=== PATIENT | male | born 1960 | race Caucasian/White ===

== ENCOUNTER 2019-12-04 15:48 | Emergency (ER) | payer OTHER, SELFPAY ==
--- NOTE | ~2019-12-04 | CT_ITS ---
EXAMINATION: CT brain wo con DATE: 12/04/2019 16:08 INDICATION: Altered mental state. Found unresponsive. TECHNIQUE: Computed tomography (CT) of the head was performed without intravenous contrast. The mA wa s adjusted according to patient size. Iterative reconstruction technique was employed. Exam dose: 60 5.33 mGy-cm total exam DLP. COMPARISON: None FINDINGS: Chronic lacunar infarcts are noted at the posterior limb of the right internal capsule appr oximately as well as both caudate nuclei. There is an old focal infarct high over the right frontal p arietal convexity. Another focal infarct is noted in the right parietal-occipital area. No intracranial mass lesion or hemorrhage, midline shift or mass effect is detected. No subdural or epidural hematoma. No fracture or bone destruction of the cranial vault. Included paranasal sinuses are unremarkable. Th e mastoid air cells are normally developed and aerated. IMPRESSION: Old right cerebral infarcts and bilateral chronic basal ganglia lacunar infarcts, printed forms proofreader ior limb right internal capsule chronic lacunar infarct Reviewed, dictated and finalized at [facility] Reviewed, dictated and finalized at [facility]. IMPRESSION: Old right cerebral infarcts and bilateral chronic basal ganglia la cunar infarcts, posterior limb right internal capsule chronic lacunar infarct
--- NOTE | ~2019-12-04 | CT_ITS ---
EXAMINATION: CTA chest abdomen pelvis DATE: 12/04/2019 16:41 INDICATION: Patient found unresponsive TECHNIQUE: Computed tomography (CT) of the chest, abdomen, and pelvis was performed without and subse quently with 100 cc Omnipaque 350 intravenous contrast. Automated exposure control and iterative bairon nstruction technique were employed. Exam dose: 1215.54 mGy-cm total exam DLP. COMPARISON: None FINDINGS: CHEST CT: Mild emphysematous changes are noted in the lungs. Normal size and homogeneous enhancement of the thyroid gland. No thoracic aortic aneurysm or dissecti on. Heart size is enlarged. No hilar or mediastinal mass lesion or lymphadenopathy. No pericardial or pleural effusion. No pulmonary infiltrate or consolidation or pulmonary mass lesion. ABDOMEN/PELVIS CT: The liver, gallbladder, bile ducts, spleen, pancreas, pancreatic duct, and adrenal glands and kidneys are unremarkable except for mild to moderate scarring in the lower pole of the left kidney, likely d ue to chronic pyelonephritis. Normal caliber of the abdominal aorta. Endovascular stent is present wi thin the distal abdominal aorta, extending into the common iliac arteries bilaterally. No intraperitoneal or retroperitoneal or pelvic mass lesion or adenopathy or ascites. There is a Hooker catheter within the evacuated urinary bladder. Prostate enlargement. There is a prominent amount of fecal material within the rectum and sigmoid colon. Minimal colon dive rticulosis. No CT evidence of diverticulitis. No bowel obstruction, bowel wall thickening, pneumatosi s or intraperitoneal free air. Occasional sclerotic lesions including right femoral neck, femoral head Prominent degenerative disc disease at L5-S1. IMPRESSION: Mild emphysema Mild amount of scarring in lower pole of left kidney Minimal colonic diverticulosis Prostate enlargement Occasional nonspecific osteosclerotic lesions, which may be bone islands. If there is concern for ost eosclerotic metastases from prostate cancer, consider bone scan Reviewed, dictated and finalized at [facility] Reviewed, dictated and finalized at [facility]. IMPRESSION: Mild emphysema Mild amount of scarring in lower pole of left kidney Minimal colonic diverticulosis Prostate enlargement Occasional nonspecific osteosclerotic lesions, which may be bone islands. If th ere is concern for osteosclerotic metastases from prostate cancer, consider bon e scan
--- NOTE | 2019-12-04 15:53 | ECG_ITS ---
Measurements Intervals [place] Rate: 0 P: AK: 0 QRS: QRSD: 0 T: QT: 0 QTc: 0 Interpretive Statements SINUS RHYTHM RIGHT BUNDLE BRANCH BLOCK LEFT VENTRICULAR HYPERTROPHY WITH ST-T CHANGE MINIMAL Q WAVES- LAT/HIGH LAT LEADS ST-T WAVE ABNORMALITY IN ANTEROLATERAL LEADS- CONSIDER ISCHEMIA BASELINE ARTIFACT- I, II, III ABNORMAL ECG Electronically Signed On 12-05-2019 9:04:51 CDT by Adam Hair D.O.
[2019-12-04 16:00] VITALS: BP 241/127; PULSE 62; RESP 15; RESP 17; TEMP 36.6; O2SAT 99
--- NOTE | 2019-12-04 16:12 | ECG_ITS ---
Measurements Intervals [place] Rate: 63 P: 65 MT: 195 QRS: -60 QRSD: 117 T: 127 QT: 494 QTc: 509 Interpretive Statements SINUS RHYTHM LEFT ATRIAL ENLARGEMENT RIGHT BUNDLE BRANCH BLOCK MINIMAL Q WAVES- HIGH LATERAL LEADS ST-T WAVE ABNORMALITY IN ANTEROLATERAL LEADS- CONSIDER ISCHEMIA ABNORMAL ECG Electronically Signed On 12-05-2019 9:06:30 CDT by Adam Hair D.O.
[2019-12-04] MEDS: LABETALOL HCL INJ 100 MG/20 ML VIAL 20 MG IV PUSH ×5 (16:18→18:31)
[2019-12-04 16:30] VITALS: BP 216/126
--- NOTE | 2019-12-04 16:30 | PC.NURSE ---
CALL PLACED TO DISPATCH - UNABLE TO TELL US DETAILS ABOUT ON SCENE FAR TIMING FOR WHEN THIS PATIENT WAS SEEN FIRST HAVING TROUBLE. UNCLEAR ON TIME LINE FOR STAT STROKE PROTOCOL
--- NOTE | 2019-12-04 16:40 | PC.NURSE ---
CALL PLACED TO [facility] NEURO/STROKE TEAM
[2019-12-04 16:45] LABS: Base Excess ABG -3.3 mmol/L (0-2); HCO3 ABG 22.8 mmol/L (23-29); Oxygen Saturation ABG 98.5 % (95-97); Oxyhemoglobin 95.3 % (94-100); PCO2 ABG 44.9 mmHg (35-45); PO2 ABG 133.3 mmHg (80-90); Total Hemoglobin 15.5 g/dL; pH ABG 7.32 (7.35-7.45)
[2019-12-04 16:47] LABS: Basophils Absolute Auto 0.07 K/mm3 (0.00-0.10); Basophils Percent Auto 0.5 % (0.0-1.0); Eosinophils Absolute Auto 0.24 K/mm3 (0.02-0.50); Eosinophils Percent Auto 1.6 % (1.0-6.0); Hematocrit 46.9 % (40.0-54.0); Hemoglobin 15.4 g/dL (14.0-18.0); Immature Granulocyte Absolute 0.15 K/mm3 (0.00-0.00); Lymphocytes Absolute Auto 2.41 K/mm3 (1.10-4.50); Lymphocytes Percent Auto 15.6 % (18.0-42.0); Mean Corpuscular HGB Conc 32.8 g/dL (32.0-36.0); Mean Corpuscular Hemoglobin 30.2 pg (27.0-31.0); Monocytes Absolute Auto 0.73 K/mm3 (0.10-0.90); Monocytes Percent Auto 4.7 % (2.0-11.0); Neutrophils Absolute Auto 11.8 K/mm3 (1.7-7.2); Neutrophils Percent Auto 76.6 % (50.0-70.0); Platelet Count Result 232 K/mm3 (150-420); White Blood Count 15.4 K/mm3 (4.8-10.8)
[2019-12-04 16:47] LABS: Device NASAL CANNULA; Modified Allen's Test Unable to perform; Site Drawn RIGHT RADIAL
[2019-12-04 16:59] LABS: Amphetamine Screen Urine Negative (Negative); Barbiturate Screen Urine Negative (Negative); Benzodiazepines Screen Urine Negative (Negative); Cannabinoid Screen Urine Negative (Negative); Cocaine Screen Urine Negative (Negative); Methadone Screen Urine Negative (Negative); Opiate Screen Urine Negative (Negative); Phencyclidine Screen Urine Negative (Negative)
[2019-12-04 17:00] VITALS: BP 210/124
--- NOTE | 2019-12-04 17:00 | PC.NURSE ---
PER [facility] - ALL RESULTS MUST BE BACK BEFORE PATIENT CAN BE ACCEPTED. - REMINDED THAT THIS PATIENT IS A STAT STROKE - NEURO REMAINS UNCHANGED FOR PATIENT
[2019-12-04 17:04] LABS: Ammonia < 10 umol/L (11-32)
[2019-12-04 17:05] LABS: INR 1.1; Partial Thromboplastin Time 25.3 SEC (22.3-31.6); Prothrombin Time 11.3 Seconds (9.64-11.0)
[2019-12-04 17:13] LABS: Alanine Aminotransferase 14 U/L (16-63); Albumin Level 3.7 g/dL (3.4-5.0); Alkaline Phosphatase 88 U/L (46-116); Anion Gap 10 mmol/L (8-16); Aspartate Amino Transferase 25 U/L (15-37); Bilirubin,Total 0.6 mg/dL (0.00-1.00); Blood Urea Nitrogen 14 mg/dL (7-18); Calcium 8.8 mg/dL (8.5-10.1); Carbon Dioxide 27 mmol/L (21-32); Chloride 104 mmol/L (98-108); Estimated Glomerular Filt Rate 51; Glucose 204 mg/dL (70-99); Osmolality Calculated 298 mOsm/kg (285-295); Potassium 3.2 mmol/L (3.5-5.1); Sodium 141 mmol/L (136-145); Total Protein 6.9 g/dL (6.4-8.2)
[2019-12-04 17:14] LABS: Troponin I 0.07 ng/mL (0.00-0.056)
[2019-12-04 17:16] LABS: Creatine Kinase 75 U/L (39-308); Thyroid Stimulating Hormone 1.09 uIU/mL (0.36-3.74)
--- NOTE | 2019-12-04 17:18 | PC.NURSE ---
[facility] CALLED WITH RESULTS - STATES THE DOCTOR IS BUSY AND WILL CALL US BACK - PT IS SUCTIONED OF SCANT AMOUNT OF VOMITUS
[2019-12-04 17:28] VITALS: BP 216/143
[2019-12-04 17:35] VITALS: BP 197/124
[2019-12-04 17:35] LABS: Ethanol < 3 mg/dL (0-6)
--- NOTE | 2019-12-04 17:40 | PC.NURSE ---
DR LOPEZ AND DR ABEBE HAVE ACCEPTED PATIENT - AWAITING BED ASSIGNMENT
--- NOTE | 2019-12-04 17:41 | ED.NEUROSD ---
HPI - Neuro Symptoms/Deficit General Chief Complaint: Suspected CVA Stated Complaint: ambulance Source: EMS Mode of arrival: EMS Limitations: altered mental status History of Present Illness HPI Narrative: this is a 59-year-old gentleman that presents via EMS after neighbors were called the patient was acting confused and was found unresponsive there is no timeline with known time of when the patient became unresponsive. Currently the patient patient is unresponsive, responsive only to painful stimuli, with a blood pressure initially of 241/127, the patient was diaphoretic with some no known past medical history except possibly CAD with stent. There is some nausea with vomiting, vital signs upon arrival temp is 97.8? with O2 sats of 97% on room air heart rate of 70. Onset (ago): hour(s) Associated symptoms: nausea/vomiting Related Data Home Medications Medication Instructions Recorded Confirmed Unable to Obtain Home Medications 12/04/19 12/04/19 Allergies Allergy/AdvReac Type Severity Reaction Status Date / Time Unable to Assess Allergy Verified 12/04/19 17:23 Review of Systems Review of Systems: All systems reviewed & are unremarkable except as noted in HPI and below [facility] Past Medical History Medical History CAD (coronary artery disease) Exam Const: Limitations: altered mental status HENMT: Head: normal to inspection Eyes: Other: dilated minimally responsive Neck: Neck: normal visual inspection, no lymphadenopathy and no meningeal signs Chest: Chest palpation & inspection: normal inspection of the chest and abnormal inspection of the chest Resp: Effort & Inspection: normal respiratory effort Auscultation: clear to auscultation bilaterally Cardio: Rate: regular rate Rhythm: regular rhythm GI: GI Palp: Yes Soft to palpation Percussion: Yes normal to percussion Back/Spine/Pelvis: Back: no CVA tenderness Skin: General skin exam: normal color Neuro: General: patient oriented x3 Extrem: General: normal to inspection Course Course Emergency Course: patient after continuous reassessment with some unresponsive head CT performed showed no acute bleed, CTA of chest shows no aortic dissection. Called [facility] stroke team and was told to wait for CT results and lab results before initiating transfer. The patient with unknown timeline did not receive tPA. Patient did receive 80 mg IV labetalol for elevated blood pressure initially of 240/127. Patient had some nausea and 1 episode of vomiting. Talk to data capture clerk at [facility] that is accepting the patient. Again the unknown timeline for when the patient fell on responsive and it was relayed to me by the neurologist Dr. gracia that CTA of the head to be performed upon arrival at [facility], and informed the data capture clerk that that was the the plan. Vital Signs Vital signs: Vital Signs Temperature 36.6 C 12/04/19 16:00 Pulse Rate 62 12/04/19 16:00 Respiratory Rate 17 12/04/19 16:00 Blood Pressure 241/127 H 12/04/19 16:00 Pulse Oximetry 99 12/04/19 16:00 Temperature 36.6 C 12/04/19 16:00 Pulse Rate 62 12/04/19 16:00 Respiratory Rate 15 12/04/19 16:00 Blood Pressure 197/124 H 12/04/19 17:35 Pulse Oximetry 99 12/04/19 16:00 MDM - Neuro Symptoms/Deficit Lab Data Attestation: I reviewed the patient's lab results. Result diagrams: 12/04/19 16:20 12/04/19 16:20 Labs: Lab Results 12/04/19 12/04/19 12/04/19 Range/Units 16:20 16:20 16:20 WBC 15.4 H (4.8-10.8) K/mm3 RBC 5.10 (4.70-6.10) M/mm3 Hgb 15.4 (14.0-18.0) g/dL Hct 46.9 (40.0-54.0) % MCV 92.0 (78.0-102.0) fL MCH 30.2 (27.0-31.0) pg MCHC 32.8 (32.0-36.0) g/dL RDW 13.0 (11.6-14.4) % Plt Count 232 (150-420) K/mm3 MPV 11.0 (8.7-11.0) fl Immature Gran % (Auto) 1.0 H (0.0-0.0) % Neut % (Auto) 76.6
[2019-12-04] MEDS: ASPIRIN 300 MG SUPPOSITORY RECTAL (17:44)
--- NOTE | 2019-12-04 18:18 | PC.NURSE ---
Called [facility] checking status on ICU admission bed, informed ICU stem maker is actively working on a bed assignment
[2019-12-04 18:37] VITALS: BP 200/121; PULSE 56; RESP 14; O2SAT 100
--- NOTE | 2019-12-04 19:00 | PC.NURSE ---
1 L NS INFUSING TKO ON TRANSFER
== END 2019-12-04 19:00 | disposition short-term general hospital (02) ==
PROVIDERS: Emergency Provider Emergency Medicine
DX: R40.20 Unspecified coma (principal)
CPT/HCPCS: 36415; 36600; 70450; 71275; 74174; 80053; 80307; 82140; 82550; 82805; 83605; 84443; 84484; 85025; 85610; 85730; 87040; 93005; 96374; 96376; 99283; 99285; A9270; Q9965

== ENCOUNTER 2019-12-14 19:04 | Inpatient (IN) | payer OTHER, SELFPAY ==
[2019-12-14 19:33] VITALS: BMI 22.5
[2019-12-14 19:48] VITALS: BP 119/75; PULSE 74; RESP 16; TEMP 36.8; O2SAT 96
--- NOTE | 2019-12-14 19:49 | ADMGEN ---
This patient, Jatin Crockett, was admitted to 2nd Floor Room 205-2. Patient/family oriented to hospital policies and general routines including ID bracelet, bed and alarms, visiting hours, pain management, procedures, bathroom and other care routines, personal items, smoking policy, room service/diet, and visiting hours. Valuables list has been completed.Pt able to walk from wheelchair to bed with minimal assist. Pt is very tired and wishes to not be disturbed unless necessary tonight. Sister reports he is not a morning person and has been refusing to speak with anyone early in the mornings. Information on how to activate the Rapid Response Team has been discussed. Patient/Family are encouraged to report perceived risks to care and to ask questions if they do not understand what they are told or what they should do.
--- NOTE | 2019-12-14 23:25 | PM.IMHP ---
H&P: HPI History of Present Illness Date/Time: 12/14/19 20:30 Chief complaint: rehab Narrative: Jatin Crockett is a 59 year old male with a history of CVA transfer this hospital for rehabilitation after having had a 2nd CVA. Patient was initially found unresponsive, was severely hypertensive, and was subsequently transferred to [facility] for further management. Details of his management there are scant as the patient offers little history and medical records are as yet unavailable. Review of Systems Constitutional: Constitutional: Denies chills, Reports lethargy and Reports weakness Eyes: Eyes: Denies blurry vision and Denies photophobia ENT: Reports system reviewed and no additional complaints, except as documented Cardiovascular: Cardiovascular: Denies chest pain, Denies pedal edema, Denies leg edema and Denies palpitations Respiratory: Respiratory: Denies cough, Denies hemoptysis, Denies dyspnea, Denies dyspnea on exertion and Denies wheezing Gastrointestinal: Gastrointestinal: Denies abdominal pain, Denies diarrhea, Denies nausea and Denies vomiting Genitourinary: Genitourinary: Denies dysuria and Denies urinary frequency Musculoskeletal: Musculoskeletal: Denies back pain, Denies arthralgias and Denies joint swelling Integumentary/Breasts: Skin/Breast: Denies pruritus, Denies erythema and Denies rash Neurologic: Denies headache(s) and Denies numbness Hematologic/Lymphatic: Hematologic/Lymphatic: Denies easy bleeding and Denies easy bruising Allergic/Immunologic: Allergic/Immunologic: Denies lip swelling and Denies throat swelling PMFSH Past Medical History Medical History (Updated 12/14/19 @ 23:37 by Thien Adam MD) CAD (coronary artery disease) CVA (cerebral vascular accident) Hypertension Social History Social History Smoking status: Unknown if ever smoked Second hand tobacco smoke exposure: Yes Alcohol intake: unknown Substance use: unknown Substance use type: unknown Gender identity (if verbalized by the patient): Male Meds Home Medications and Allergies Home Medications Medication Instructions Recorded Confirmed Type Adult Low Dose Aspirin 81 mg BYMOUTH DAILY 12/14/19 12/14/19 History atorvastatin 40 mg BYMOUTH DAILY 12/14/19 12/14/19 History clopidogrel 75 mg BYMOUTH DAILY 12/14/19 12/14/19 History labetalol 50 mg BYMOUTH BID 12/14/19 12/14/19 History lisinopril 10 mg BYMOUTH DAILY 12/14/19 12/14/19 History modafinil 100 mg BYMOUTH DAILY 12/14/19 12/14/19 History nifedipine 60 mg BYMOUTH DAILY 12/14/19 12/14/19 History pantoprazole 40 mg BYMOUTH DAILY 12/14/19 12/14/19 History Allergies Allergy/AdvReac Type Severity Reaction Status Date / Time Unable to Assess Allergy Verified 12/04/19 17:23 Vital Signs Vital Signs - 24 hr 12/14/19 19:48 Temperature 36.8 C Pulse Rate 74 Respiratory Rate 16 Blood Pressure 119/75 Pulse Oximetry 96 Exam Const: General: comfortable and no acute distress HENMT: Mouth: Yes moist mucous membranes Other: normocephalic, normal facies Eyes: Pupils: Equal, round and reactive pupils present EOM: EOMs intact bilaterally Neck: Neck: supple and no JVD Thyroid: thyroid normal Resp: Effort & Inspection: normal respiratory effort Auscultation: clear to auscultation bilaterally, no rales, no rhonchi and no wheezes Cardio: Rate: regular rate Rhythm: regular rhythm Heart sounds: no murmurs GI: Inspection: non-distended GI Palp: Yes Soft to palpation and No Tenderness to palpation present (GI) Auscultation: normal bowel sounds Skin: General skin exam: normal color and no rashes or lesions noted Neuro: Cognition (Neuro): normal cognition Motor exam (neuro): Abnormal motor strength present ( overall strength mildly decreased but limb strength is symmetric) Extrem: General: normal to inspection and no edema Psych: Mental Status: mental status grossly normal Ot
--- NOTE | 2019-12-14 23:39 | PC.NURSE ---
Call placed to [facility] in [place], [place]. to get pt's medical records. Gaby, charge weigher nurse said that she will see what she can do to get the records sent to [facility].
--- NOTE | 2019-12-14 23:56 | PC.NURSE ---
Gaby, charge nurse RN called and said the subwarehouse supervisor, Ming, would be the person who could get the medical records. She gave the contact information for him.
[2019-12-15 00:09] VITALS: BP 146/85; PULSE 69; RESP 18; TEMP 36.6; O2SAT 96
--- NOTE | 2019-12-15 00:10 | PC.NURSE ---
Sitting on edge of bed, laid back down, denies needs, slow to respond, call light in reach
--- NOTE | 2019-12-15 00:40 | PC.NURSE ---
Spoke with Moo, housekeeper home about obtaining pt's medical records. He said he would fax them over [employer].
--- NOTE | 2019-12-15 02:16 | PC.NURSE ---
Resting in bed, side rails up and call light in reach of pateint
--- NOTE | 2019-12-15 04:33 | PC.NURSE ---
laying in bed awake, offered to assist up to bathroom or to use urinal, denies needs to void
[2019-12-15 05:43] LABS: Basophils Absolute Auto 0.06 K/mm3 (0.00-0.10); Basophils Percent Auto 0.6 % (0.0-1.0); Eosinophils Absolute Auto 0.26 K/mm3 (0.02-0.50); Eosinophils Percent Auto 2.8 % (1.0-6.0); Hematocrit 47.9 % (40.0-54.0); Hemoglobin 15.7 g/dL (14.0-18.0); Immature Granulocyte Absolute 0.11 K/mm3 (0.00-0.00); Immature Granulocyte Percent A 1.2 % (0.0-0.0); Lymphocytes Absolute Auto 2.46 K/mm3 (1.10-4.50); Lymphocytes Percent Auto 26.1 % (18.0-42.0); Mean Corpuscular HGB Conc 32.8 g/dL (32.0-36.0); Mean Corpuscular Hemoglobin 30.2 pg (27.0-31.0); Mean Corpuscular Volume 92.1 fL (78.0-102.0); Mean Platelet Volume 10.1 fl (8.7-11.0); Monocytes Absolute Auto 0.63 K/mm3 (0.10-0.90); Monocytes Percent Auto 6.7 % (2.0-11.0); Neutrophils Absolute Auto 5.9 K/mm3 (1.7-7.2); Neutrophils Percent Auto 62.6 % (50.0-70.0); Platelet Count Result 280 K/mm3 (150-420); Red Cell Distribution Width 13.5 % (11.6-14.4); White Blood Count 9.4 K/mm3 (4.8-10.8)
[2019-12-15 06:03] LABS: Alanine Aminotransferase 36 U/L (16-63); Albumin Level 3.6 g/dL (3.4-5.0); Alkaline Phosphatase 102 U/L (46-116); Anion Gap 9 mmol/L (8-16); Aspartate Amino Transferase 15 U/L (15-37); Bilirubin,Total 0.4 mg/dL (0.00-1.00); Blood Urea Nitrogen 20 mg/dL (7-18); Calcium 9.3 mg/dL (8.5-10.1); Carbon Dioxide 28 mmol/L (21-32); Chloride 104 mmol/L (98-108); Estimated CRCL calculation 57 ml/min; Estimated Glomerular Filt Rate > 60; Glucose 108 mg/dL (70-99); Osmolality Calculated 295 mOsm/kg (285-295); Potassium 4.4 mmol/L (3.5-5.1); Sodium 141 mmol/L (136-145); Total Protein 7.1 g/dL (6.4-8.2)
[2019-12-15 08:00] VITALS: BP 173/95; PULSE 80; RESP 18; TEMP 36.6; O2SAT 98
[2019-12-15 08:42] VITALS: PULSE 88
[2019-12-15] MEDS: LABETALOL HCL 100 MG TABLET 50 MG PO ×2 (08:42→20:49)
[2019-12-15] MEDS: NIFEdipine 30 MG TAB.ER.24 60 MG PO (08:43)
[2019-12-15] MEDS: lisinopriL 10 MG TABLET PO (08:44)
[2019-12-15] MEDS: CLOPIDOGREL BISULFATE 75 MG TABLET PO (08:44)
[2019-12-15] MEDS: ASPIRIN 81 MG CHEWABLE TABLET PO (08:44)
[2019-12-15] MEDS: ATORVASTATIN 40 MG TABLET PO (08:44)
[2019-12-15] MEDS: PANTOPRAZOLE 40 MG TABLET PO (08:44)
--- NOTE | 2019-12-15 10:57 | PC.NURSE ---
he is hard to carmelo. alert and orient. speaks and then just stops. has a blank flat lost affect. words are soft. hands poke in and equal. follows commands and then just stops.
[2019-12-15 16:00] VITALS: BP 154/86; PULSE 76; RESP 16; TEMP 36.6; O2SAT 98
[2019-12-15 20:49] VITALS: PULSE 80
[2019-12-16] VITALS: BP 132/75; PULSE 64; RESP 20; TEMP 36.9; O2SAT 97
--- NOTE | 2019-12-16 02:31 | PC.NURSE ---
pt sleeping, no evidence of distress noted, respirations even and regular
[2019-12-16 08:00] VITALS: BP 179/95; PULSE 71; RESP 16; TEMP 36.6; O2SAT 99
--- NOTE | 2019-12-16 09:07 | PM.IMPN ---
Progress Note: A&P Assessment and Plan (1) CVA (cerebral vascular accident): Code(s): I63.9 - Cerebral infarction, unspecified Status: Acute Assessment and Plan: 12/16/2019 Continue Plavix, PT/OT, monitor progress, monitor vital signs (2) Hypertension: Code(s): I10 - Essential (primary) hypertension Status: Acute Assessment and Plan: 12/16/2019 Continue home medications, blood pressure does fluctuate, highest over the last couple days 175 systolic, will continue to monitor and adjust medications as needed. Subjective Date/time seen: 12/16/19 09:07 Patient is sitting in bed saying that he is not having any kind of issues. patient denies any pain, denies chest pain, denies shortness of breath, denies numbness or tingling, states that he is doing well with physical therapy. Patient does not have any concerns at this time. Review of Systems Constitutional: Constitutional: Reports no additional constitutional complaints Cardiovascular: Cardiovascular: Denies chest pain, Denies chest pain at rest and Denies chest pain with activity Respiratory: Respiratory: Reports no additional respiratory complaints Gastrointestinal: Gastrointestinal: Reports no additional gastrointestinal complaints Musculoskeletal: Comments: Patient says he is not having any difficulties with his movement Exam Narrative: Exam Narrative: Patient is a little slow to talk. Words do not come out smoothly. He is also little slow to respond and at times seems to stare off. Const: General: cooperative and no acute distress Nutritional Appearance: average body habitus Neck: Neck: normal visual inspection and full ROM Resp: Effort & Inspection: normal respiratory effort Auscultation: clear to auscultation bilaterally Cardio: Rate: regular rate Rhythm: regular rhythm Neuro: General: oriented to person, oriented to place and oriented to time Speech: Abnormal speech present ( takes time to formulate words and a little slow saying words) Other: Equal strength upper and lower extremities but there is a delay in movement and patient is slow to respond. Objective Data Vital Signs Vital Signs: Vital Signs - 24 hr 12/15/19 16:00 12/15/19 20:49 12/16/19 00:00 Temperature 97.8 F 98.4 F Pulse Rate 76 80 64 Respiratory Rate 16 20 Blood Pressure 154/86 H 132/75 Pulse Oximetry 98 97 12/16/19 08:00 Temperature 97.9 F Pulse Rate 71 Respiratory Rate 16 Blood Pressure 179/95 H Pulse Oximetry 99 Intake/Output Intake/Output: Intake & Output 12/13/19 12/14/19 12/15/19 12/16/19 23:59 23:59 23:59 23:59 Intake Total 1290 50 Balance 1290 50 Meds/Results Medications: Active Medications Generic Name Dose Route Start Last Admin Trade Name Freq PRN Reason Stop Dose Admin Acetaminophen 1,000 mg 12/14/19 20:35 Tylenol Tablet PO Q6H PRN Mild Pain (1-3) or Fever Aspirin 81 mg 12/15/19 08:00 12/15/19 08:44 Aspirin Chewable PO 81 mg DAILY@0800 SANGEETHA Administration Atorvastatin Calcium 40 mg 12/15/19 09:00 12/15/19 08:44 Lipitor PO 40 mg DAILY SANGEETHA Administration Clopidogrel Bisulfate 75 mg 12/15/19 09:00 12/15/19 08:44 Plavix PO 75 mg QAM SANGEETHA Administration Labetalol HCl 50 mg 12/15/19 09:00 12/15/19 20:49 Trandate PO 50 mg Q12HR SANGEETHA Administration Lisinopril 10 mg 12/15/19 09:00 12/15/19 08:44 Prinivil PO 10 mg QAM SANGEETHA Administration Modafinil 100 mg 12/16/19 09:00 Provigil PO QAM SANGEETHA Nifedipine 60 mg 12/15/19 09:00 12/15/19 08:43 Procardia Xl PO 60 mg QAM SANGEETHA Administration Pantoprazole Sodium 40 mg 12/15/19 09:00 12/15/19 08:44 Protonix PO 40 mg QAM SANGEETHA Administration Quality GI/DVT Prophylaxis: Continue Plavix, Ambulatory with PT/OT, Protonix Code Status: Full Code DC Planning: At this time I anticipate Pt will do well with PT/OT and should be able to return home.
[2019-12-16 09:43] VITALS: PULSE 70
[2019-12-16] MEDS: modafiniL (*CRX) 100 MG TABLET PO (09:43)
[2019-12-16] MEDS: LABETALOL HCL 100 MG TABLET 50 MG PO ×2 (09:43→20:38)
[2019-12-16] MEDS: ASPIRIN 81 MG CHEWABLE TABLET PO (09:45)
[2019-12-16] MEDS: NIFEdipine 30 MG TAB.ER.24 60 MG PO (09:45)
[2019-12-16] MEDS: ATORVASTATIN 40 MG TABLET PO (09:46)
[2019-12-16] MEDS: PANTOPRAZOLE 40 MG TABLET PO (09:46)
[2019-12-16] MEDS: CLOPIDOGREL BISULFATE 75 MG TABLET PO (09:46)
[2019-12-16] MEDS: lisinopriL 10 MG TABLET PO (09:46)
--- NOTE | 2019-12-16 11:15 | PC.NURSE ---
No needs voiced, remains in chair with legs elevated
--- NOTE | 2019-12-16 12:07 | PC.NURSE ---
Talking on the phone, lunch served, encouraged to eat
--- NOTE | 2019-12-16 14:00 | PC.NURSE ---
Therapy has completed work out for today, patient back to chair with call light and personal items within reach.
[2019-12-16 15:56] VITALS: BP 129/79; PULSE 71; RESP 16; TEMP 36.4; O2SAT 97
--- NOTE | 2019-12-16 18:30 | PC.NURSE ---
pt sitting up in chair, shakes head no when offered urinal/bathroom, will continue to monitor
[2019-12-16 20:38] VITALS: PULSE 70
--- NOTE | 2019-12-16 21:29 | PC.NURSE ---
briefs changed, pt amb to bed, rails up, call light on lap
--- NOTE | 2019-12-16 22:48 | PC.NURSE ---
pt appears to be sleeping, no s/sx of distress, breathing non labored, rails up, call light in reach
[2019-12-17] VITALS: BP 145/82; PULSE 69; RESP 18; TEMP 36.6; O2SAT 97
[2019-12-17 07:40] VITALS: BP 152/80; PULSE 71; RESP 18; TEMP 36.7; O2SAT 96
--- NOTE | 2019-12-17 07:40 | PC.NURSE ---
Therapy in room, got patient to standing position, will not move, needs much encouragement to move or to ambulate, non verbal at this time, is able to stand and lift legs to change wet briefs to dry, much encouragement needed to get patient to take steps for therapy, able to ambulate patient in halls and then to chair for breakfast, at times has a blank stare, will not verbally respond but will take direction with much encouragement of staff
[2019-12-17 08:53] VITALS: PULSE 71
[2019-12-17] MEDS: modafiniL (*CRX) 100 MG TABLET PO (08:53)
[2019-12-17] MEDS: LABETALOL HCL 100 MG TABLET 50 MG PO ×2 (08:53→20:56)
[2019-12-17] MEDS: ASPIRIN 81 MG CHEWABLE TABLET PO (08:53)
[2019-12-17] MEDS: lisinopriL 10 MG TABLET PO (08:53)
[2019-12-17] MEDS: ATORVASTATIN 40 MG TABLET PO (08:53)
[2019-12-17] MEDS: PANTOPRAZOLE 40 MG TABLET PO (08:53)
[2019-12-17] MEDS: CLOPIDOGREL BISULFATE 75 MG TABLET PO (08:54)
[2019-12-17] MEDS: NIFEdipine 30 MG TAB.ER.24 60 MG PO (08:54)
--- NOTE | 2019-12-17 10:39 | PC.NURSE ---
Remains in chair, napping, call light in reach,
[2019-12-17 15:48] VITALS: BP 139/76; PULSE 68; RESP 18; TEMP 36.6; O2SAT 96
--- NOTE | 2019-12-17 16:33 | PC.NURSE ---
Denies need to void, briefs dry at this time
--- NOTE | 2019-12-17 17:10 | PC.NURSE ---
In chair eating dinner
--- NOTE | 2019-12-17 18:00 | PC.NURSE ---
Remains in chair, blanket given, call light in reach of patient, educated on how to use, breifs dry at this time
--- NOTE | 2019-12-17 20:25 | PC.NURSE ---
pt sitting in chair watching tv, denies any needs at this time
[2019-12-17 20:55] VITALS: BP 148/85; PULSE 75
[2019-12-17 20:56] VITALS: PULSE 75
--- NOTE | 2019-12-17 22:10 | PC.NURSE ---
pt up from to chair to go to bed, depend and gown changed, walker with sba, tolerated well, given fresh ice water and pepsi, denies any other needs at this time. Encouraged pt to call if he feels the need to void or if his depend needs changed, pt verbalized understanding.
[2019-12-18] VITALS: BP 142/78; PULSE 66; RESP 20; TEMP 36.6; O2SAT 98
[2019-12-18 08:00] VITALS: BP 150/88; PULSE 77; RESP 18; TEMP 36.8; O2SAT 97
[2019-12-18 08:45] VITALS: PULSE 77
[2019-12-18] MEDS: lisinopriL 10 MG TABLET PO (08:45)
[2019-12-18] MEDS: ASPIRIN 81 MG CHEWABLE TABLET PO (08:45)
[2019-12-18] MEDS: ATORVASTATIN 40 MG TABLET PO (08:45)
[2019-12-18] MEDS: modafiniL (*CRX) 100 MG TABLET PO (08:45)
[2019-12-18] MEDS: PANTOPRAZOLE 40 MG TABLET PO (08:45)
[2019-12-18] MEDS: CLOPIDOGREL BISULFATE 75 MG TABLET PO (08:45)
[2019-12-18] MEDS: NIFEdipine 30 MG TAB.ER.24 60 MG PO (08:45)
[2019-12-18] MEDS: LABETALOL HCL 100 MG TABLET 50 MG PO ×2 (08:45→20:35)
[2019-12-18 16:00] VITALS: BP 138/78; PULSE 68; RESP 18; TEMP 36.5; O2SAT 97
[2019-12-19] VITALS: BP 143/80; PULSE 62; RESP 12; TEMP 36.8; O2SAT 95
[2019-12-19 08:00] VITALS: BP 171/101; PULSE 74; RESP 18; TEMP 36.8; O2SAT 97
[2019-12-19] MEDS: lisinopriL 10 MG TABLET PO (08:59)
[2019-12-19] MEDS: modafiniL (*CRX) 100 MG TABLET PO (08:59)
[2019-12-19] MEDS: ATORVASTATIN 40 MG TABLET PO (08:59)
[2019-12-19] MEDS: CLOPIDOGREL BISULFATE 75 MG TABLET PO (08:59)
[2019-12-19] MEDS: PANTOPRAZOLE 40 MG TABLET PO (08:59)
[2019-12-19 09:00] VITALS: PULSE 76
[2019-12-19] MEDS: NIFEdipine 30 MG TAB.ER.24 60 MG PO (09:00)
[2019-12-19] MEDS: ASPIRIN 81 MG CHEWABLE TABLET PO (09:00)
[2019-12-19] MEDS: LABETALOL HCL 100 MG TABLET 50 MG PO ×2 (09:00→19:46)
[2019-12-19 16:00] VITALS: BP 113/71; PULSE 62; RESP 18; TEMP 36.6; O2SAT 98
[2019-12-19 19:46] VITALS: PULSE 74
[2019-12-20] VITALS: BP 114/65; PULSE 63; RESP 12; TEMP 36.6; O2SAT 98
[2019-12-20 07:32] VITALS: BP 157/82; PULSE 66; RESP 18; TEMP 36.6; O2SAT 98
[2019-12-20 08:45] VITALS: PULSE 66
[2019-12-20] MEDS: ATORVASTATIN 40 MG TABLET PO (08:45)
[2019-12-20] MEDS: LABETALOL HCL 100 MG TABLET 50 MG PO ×2 (08:45→21:02)
[2019-12-20] MEDS: CLOPIDOGREL BISULFATE 75 MG TABLET PO (08:45)
[2019-12-20] MEDS: PANTOPRAZOLE 40 MG TABLET PO (08:45)
[2019-12-20] MEDS: modafiniL (*CRX) 100 MG TABLET PO (08:45)
[2019-12-20] MEDS: NIFEdipine 30 MG TAB.ER.24 60 MG PO (08:45)
[2019-12-20] MEDS: ASPIRIN 81 MG CHEWABLE TABLET PO (08:45)
[2019-12-20] MEDS: lisinopriL 10 MG TABLET PO (08:45)
--- NOTE | 2019-12-20 10:15 | PC.NURSE ---
OT Gretel approached SN, requested help waking patient, states he is breathing but not opening eyes or responding when she attempts to rouse him. SN approached patient, sitting up in chair, spoke loudly, tapped patient on arm and shoulder, shook patients shoulder. Patient did not open eyes or respond. SN called patients name again and performed sternal rub, at which point patient opened eyes and glared at SN but did not speak. SN explained OT and SN attempting to elicit response from him. Patient did not make eye contact or verbalize anything. SN explained Gretel from OT would be working with him- patient again did not make eye contact or acknowledge speaker.
--- NOTE | 2019-12-20 10:25 | PC.NURSE ---
Gretel ZEPEDA reports patient refusing to cooperate, pushing back from her, pushing away cleansing cloths. She states she will give him a break and try again later.
[2019-12-20 16:00] VITALS: BP 110/64; PULSE 64; RESP 16; TEMP 36.6; O2SAT 98
--- NOTE | 2019-12-20 16:27 | PCSTNOTE ---
Attempted ST on this date this afternoon. Pt did not respond to questions or directives. When pt's knee was squeezed to get attention, pt opened eyes and stated I don't wanna do what you're doing . After multiple more attempts from ST to achieve pt's participation which yielded no further response, session was terminated.
[2019-12-20 21:02] VITALS: PULSE 64
[2019-12-20 23:35] VITALS: BP 117/69; PULSE 61; RESP 16; TEMP 36.1; O2SAT 98
[2019-12-21 07:14] VITALS: BP 136/63; PULSE 61; RESP 18; TEMP 36.6; O2SAT 95
[2019-12-21 08:29] VITALS: PULSE 61
[2019-12-21] MEDS: LABETALOL HCL 100 MG TABLET 50 MG PO ×2 (08:29→20:58)
[2019-12-21] MEDS: modafiniL (*CRX) 100 MG TABLET PO (08:29)
[2019-12-21] MEDS: lisinopriL 10 MG TABLET PO (08:30)
[2019-12-21] MEDS: ATORVASTATIN 40 MG TABLET PO (08:30)
[2019-12-21] MEDS: PANTOPRAZOLE 40 MG TABLET PO (08:31)
[2019-12-21] MEDS: ASPIRIN 81 MG CHEWABLE TABLET PO (08:31)
[2019-12-21] MEDS: NIFEdipine 30 MG TAB.ER.24 60 MG PO (08:31)
[2019-12-21] MEDS: CLOPIDOGREL BISULFATE 75 MG TABLET PO (08:31)
--- NOTE | 2019-12-21 08:58 | PC.NURSE ---
Sitting on edge of bed talking on the phone, no distress, no evidence of pain noted
--- NOTE | 2019-12-21 11:13 | PC.NURSE ---
In chair denies needs at this time
[2019-12-21 15:05] VITALS: BP 139/79; PULSE 65; RESP 18; TEMP 36.6; O2SAT 95
--- NOTE | 2019-12-21 15:51 | PC.NURSE ---
In chair, denies need to void, watching TV, personal items in reach
--- NOTE | 2019-12-21 17:15 | PCPTNOTE ---
Addendum entered by Luma Byrd, [employer] 12/21/19 17:20: clinician asked pt to lift legs so the tray could be slid under him, and he had no problem doing this task. -. Original Note: 12/21/19- attempted to see pt for afternoon visit at 1630. pt was seated in chair at time of arrival. pt was asked about going for a walk and he responded that he feels like he just took a walk. pt refused to lean forward when asked to do so to put belt on in preparation for the walk. pt was asked to perform seated exercises, but clinician was unable to get pt to perform any exercises requested. After 10 minutes of trying to get pt to participate clinician told pt that was fine, we could just note that pt refused treatment. clinician asked pt to lif
[2019-12-21 20:58] VITALS: PULSE 70
[2019-12-21 23:53] VITALS: BP 135/75; PULSE 72; RESP 20; TEMP 36.8; O2SAT 96
[2019-12-22 07:50] VITALS: BP 137/69; PULSE 66; RESP 16; TEMP 36.6; O2SAT 98
[2019-12-22 08:58] VITALS: PULSE 66
[2019-12-22] MEDS: ASPIRIN 81 MG CHEWABLE TABLET PO (08:58)
[2019-12-22] MEDS: LABETALOL HCL 100 MG TABLET 50 MG PO ×2 (08:58→20:12)
[2019-12-22] MEDS: modafiniL (*CRX) 100 MG TABLET PO (08:58)
[2019-12-22] MEDS: NIFEdipine 30 MG TAB.ER.24 60 MG PO (08:58)
[2019-12-22] MEDS: PANTOPRAZOLE 40 MG TABLET PO (08:58)
[2019-12-22] MEDS: CLOPIDOGREL BISULFATE 75 MG TABLET PO (08:58)
[2019-12-22] MEDS: lisinopriL 10 MG TABLET PO (08:58)
[2019-12-22] MEDS: ATORVASTATIN 40 MG TABLET PO (08:58)
--- NOTE | 2019-12-22 09:32 | WPDPN ---
Progress Note: A&P Assessment and Plan (1) CVA (cerebral vascular accident): Code(s): I63.9 - Cerebral infarction, unspecified Status: Acute Assessment and Plan: History of CVA x2 Continue aspirin 81 mg daily, Plavix 75 mg daily Continue physical therapy/Occupational Therapy [facility] to 24-hour supervision with a walker and home health (2) Hypertension: Code(s): I10 - Essential (primary) hypertension Status: Acute Assessment and Plan: Stable control Blood pressure 135/75 Continue labetalol 50 mg p.o. every 12 hours, lisinopril 10 mg p.o. daily, Procardia 60 mg p.o. daily Continue vital signs as ordered Will adjust as needed (3) CAD (coronary artery disease): Code(s): I25.10 - Atherosclerotic heart disease of [place] coronary artery without angina pectoris Status: Acute Assessment and Plan: Continue atorvastatin 40 mg p.o. daily Continue aspirin 81 mg daily (4) Weakness: Code(s): R53.1 - Weakness Status: Acute Assessment and Plan: ? Exhibit tolerance during physical activity as evidenced by a normal fluctuation of vital signs during physical activity. ? Patient will be ability to perform required activities of daily living. ? Provide appropriate nutrition for healing and strength. ? Use appropriate to prevent falls. ? Continue physical therapy/occupational therapy. Review of Systems Review of Systems: All systems reviewed & are unremarkable except as noted in HPI and below (10 point system review) Exam Narrative: Exam Narrative: GENERAL: speech dysarthria with slow responses,in no apparent distress. HEAD: normocephalic, atraumatic. EYES: PERRL. Sclera clear/white. Vision is grossly intact. EARS: External ears normal, auditory canals clear and without drainage, TMs normal without perforation. Hearing grossly intact. NOSE: External nose normal with no obvious nasal discharge, nares without redness, no rhinorrhea. THROAT: Mucous membranes moist, posterior pharynx clear. NECK: Neck supple, non-tender without lymphadenopathy, masses or thyromegaly. CARDIOVASCULAR: Regular rate and rhythm without murmurs, gallops, or rubs. RESPIRATORY: Clear to auscultation. Breath sounds equal bilaterally. No wheezes, rales, or rhonchi. GASTROINTESTINAL: Abdomen soft, non-tender, nondistended. Bowel sounds are active. No hepato-splenomegaly, or palpable masses. No guarding. SKIN: warm, intact with no suspicious lesions or rash, good texture and turgor. NEURO: awake, alert, and oriented to person, place and time. unsteady gait EXTREMITIES: Normal range of motion. No edema. No calf tenderness. Negative Homans sign bilaterally. BACK: Nontender without deformity or crepitance. No flank tenderness. Objective Data Vital Signs Vital Signs: Vital Signs - 24 hr 12/21/19 15:05 12/21/19 20:58 12/21/19 23:53 Temperature 98 F 98.2 F Pulse Rate 65 70 72 Respiratory Rate 18 20 Blood Pressure 139/79 135/75 Pulse Oximetry 95 96 12/22/19 07:50 12/22/19 08:58 Temperature 98 F Pulse Rate 66 66 Respiratory Rate 16 Blood Pressure 137/69 Pulse Oximetry 98 Intake/Output Intake/Output: Intake & Output 12/19/19 12/20/19 12/21/19 12/22/19 23:59 23:59 23:59 23:59 Intake Total 450 290 770 230 Balance 450 290 770 230 Meds/Results Medications: Active Medications Generic Name Dose Route Start Last Admin Trade Name Freq PRN Reason Stop Dose Admin Acetaminophen 1,000 mg 12/14/19 20:35 Tylenol Tablet PO Q6H PRN Mild Pain (1-3) or Fever Aspirin 81 mg 12/15/19 08:00 12/22/19 08:58 Aspirin Chewable PO 81 mg DAILY@0800 [facility] Administration Atorvastatin Calcium 40 mg 12/15/19 09:00 12/22/19 08:58 Lipitor PO 40 mg DAILY SANGEETHA Administration Clopidogrel Bisulfate 75 mg 12/15/19 09:00 12/22/19 08:58 Plavix PO 75 mg QAM [facility] Administration Labetalol HCl 50 mg 12/15/19
[2019-12-22 15:17] VITALS: BP 120/74; PULSE 61; RESP 18; TEMP 36.8; O2SAT 95
--- NOTE | 2019-12-22 15:18 | PC.NURSE ---
continues to be difficult to assess, shakes head yes and no but mostly non verbal with this RN, does carry on conversations while on telephone, just non verbal with staff
--- NOTE | 2019-12-22 16:31 | PC.NURSE ---
In chair, awaiting dinner, no needs voiced
[2019-12-22 20:12] VITALS: PULSE 61
--- NOTE | 2019-12-22 20:18 | PC.NURSE ---
In chair watching TV, offered to assist patient to bed or to bathroom, nods head no, non verbal with this RN
--- NOTE | 2019-12-22 21:39 | PM.EVENT ---
Event Note Event Note Event Note: I have examined the patient and reviewed the chart. Discussed the patient's care with Praveen Terrazas APN and agree with her assessment and plan.
--- NOTE | 2019-12-22 22:00 | PC.NURSE ---
Up to void, did not call for assistance, reminded for safety to call when needs up, nods head, non verbal
[2019-12-22 23:54] VITALS: BP 126/73; PULSE 61; RESP 18; TEMP 36.8; O2SAT 95
--- NOTE | 2019-12-22 23:55 | PC.NURSE ---
Currently in bed resting, no needs voiced, remains non verbal, shakes head yes and no
--- NOTE | 2019-12-23 01:30 | PC.NURSE ---
In bed, no distress, call light in reach of patient
--- NOTE | 2019-12-23 03:30 | PC.NURSE ---
Sleeping, no distress, in bed, side rails up
--- NOTE | 2019-12-23 05:12 | PC.NURSE ---
Awake and in chair, is speaking a few words this am, denies needs
[2019-12-23 05:33] LABS: Hematocrit 43.2 % (40.0-54.0); Hemoglobin 14.3 g/dL (14.0-18.0); Mean Corpuscular HGB Conc 33.1 g/dL (32.0-36.0); Mean Corpuscular Hemoglobin 30.5 pg (27.0-31.0); Mean Corpuscular Volume 92.1 fL (78.0-102.0); Mean Platelet Volume 10.1 fl (8.7-11.0); Platelet Count Result 284 K/mm3 (150-420); Red Blood Count 4.69 M/mm3 (4.70-6.10); Red Cell Distribution Width 13.2 % (11.6-14.4); White Blood Count 9.3 K/mm3 (4.8-10.8)
[2019-12-23 05:52] LABS: Alanine Aminotransferase 28 U/L (16-63); Albumin Level 3.7 g/dL (3.4-5.0); Alkaline Phosphatase 101 U/L (46-116); Anion Gap 6 mmol/L (8-16); Aspartate Amino Transferase < 10 U/L (15-37); Bilirubin,Total 0.7 mg/dL (0.00-1.00); Blood Urea Nitrogen 20 mg/dL (7-18); Calcium 9.4 mg/dL (8.5-10.1); Carbon Dioxide 30 mmol/L (21-32); Chloride 101 mmol/L (98-108); Estimated CRCL calculation 63 ml/min; Estimated Glomerular Filt Rate > 60; Glucose 95 mg/dL (70-99); Osmolality Calculated 286 mOsm/kg (285-295); Sodium 137 mmol/L (136-145); Total Protein 7.6 g/dL (6.4-8.2)
[2019-12-23 07:50] VITALS: BP 145/91; PULSE 73; RESP 18; TEMP 36.9; O2SAT 97
[2019-12-23] MEDS: ASPIRIN 81 MG CHEWABLE TABLET PO (08:26)
[2019-12-23] MEDS: ATORVASTATIN 40 MG TABLET PO (08:26)
[2019-12-23] MEDS: CLOPIDOGREL BISULFATE 75 MG TABLET PO (08:26)
[2019-12-23] MEDS: NIFEdipine 30 MG TAB.ER.24 60 MG PO (08:26)
[2019-12-23] MEDS: lisinopriL 10 MG TABLET PO (08:26)
[2019-12-23] MEDS: PANTOPRAZOLE 40 MG TABLET PO (08:26)
[2019-12-23 08:27] VITALS: PULSE 73
[2019-12-23] MEDS: modafiniL (*CRX) 100 MG TABLET PO (08:27)
[2019-12-23] MEDS: LABETALOL HCL 100 MG TABLET 50 MG PO ×2 (08:27→20:56)
--- NOTE | 2019-12-23 10:35 | PCOTNOTE ---
9 Time: 10:18 am. ASPEN attempted see patient this date. Patient was sitting up in chair and kept eyes closed/refused to answer or acknowledge therapist. Therapist attempted to encourage patient to participate in grooming tasks. Pt became angry and grabbed bathing wipe from therapist, quickly wiped face and threw wipe. When therapist attempted another task, patient became very angry and told therapist to get the hell out . Therapist left.
--- NOTE | 2019-12-23 13:42 | PCOTNOTE ---
12-23-19 Pt was attempted 2 separate times in the PM to be seen by occupational therapy. Pt was sitting in chair upon arrival and refused to open eyes or acknowledge therapist. Therapist came back about 20-25 min later to attempt again. When asked about participating in therapy, pt glared and therapist and turned head away to ignore therapist.
[2019-12-23 16:00] VITALS: BP 116/72; PULSE 82; RESP 18; TEMP 36.8; O2SAT 99
[2019-12-23 20:56] VITALS: PULSE 76
[2019-12-24] VITALS: BP 118/75; PULSE 61; RESP 16; TEMP 36.5; O2SAT 97
[2019-12-24 07:10] VITALS: BP 149/92; PULSE 66; RESP 18; TEMP 36.6; O2SAT 98
--- NOTE | 2019-12-24 07:17 | PC.NURSE ---
Up in chair at this time, more animated today and verbally answering quetions
[2019-12-24 08:44] VITALS: PULSE 66
[2019-12-24] MEDS: PANTOPRAZOLE 40 MG TABLET PO (08:44)
[2019-12-24] MEDS: LABETALOL HCL 100 MG TABLET 50 MG PO ×2 (08:44→20:37)
[2019-12-24] MEDS: modafiniL (*CRX) 100 MG TABLET PO (08:45)
[2019-12-24] MEDS: ATORVASTATIN 40 MG TABLET PO (08:45)
[2019-12-24] MEDS: NIFEdipine 30 MG TAB.ER.24 60 MG PO (08:45)
[2019-12-24] MEDS: CLOPIDOGREL BISULFATE 75 MG TABLET PO (08:46)
[2019-12-24] MEDS: lisinopriL 10 MG TABLET PO (08:46)
[2019-12-24] MEDS: ASPIRIN 81 MG CHEWABLE TABLET PO (08:50)
--- NOTE | 2019-12-24 10:00 | PC.NURSE ---
In chair, denies needs, more alert and cooperative today
--- NOTE | 2019-12-24 11:00 | PC.NURSE ---
In chair, watching TV, talks on phone with family
--- NOTE | 2019-12-24 12:00 | PC.NURSE ---
Lunch provided to patient, feeds self
--- NOTE | 2019-12-24 14:27 | PC.NURSE ---
In chair, watching TV, denies needs, walker for home use delivered today
[2019-12-24 15:48] VITALS: BP 116/70; PULSE 63; RESP 16; TEMP 36.6; O2SAT 97
--- NOTE | 2019-12-24 16:17 | PC.NURSE ---
speech therapy is in with pt now attempting to do 30 mins, pt is sitting up in chair
--- NOTE | 2019-12-24 16:21 | PC.NURSE ---
pt is uncooperative with speech therapist, therapist is discharging him from speech therapy
[2019-12-24 20:37] VITALS: PULSE 76
--- NOTE | 2019-12-24 23:20 | PC.NURSE ---
Pt sitting up in the chair watching TV. Pt doesnt voice any c/o discomfort.
[2019-12-25] VITALS: BP 122/74; PULSE 64; RESP 20; TEMP 36.8; O2SAT 97
--- NOTE | 2019-12-25 01:02 | PC.NURSE ---
Pt sitting up in the chair watching TV. No signs of discomfort noted.
--- NOTE | 2019-12-25 03:22 | PC.NURSE ---
Pt asleep in bed and no signs of discomfort noted.
--- NOTE | 2019-12-25 05:27 | PC.NURSE ---
Pt asleep and no signs of discomfort noted.
--- NOTE | 2019-12-25 06:40 | PC.NURSE ---
Pt asleep and no signs of discomfort noted.
[2019-12-25 07:35] VITALS: BP 142/74; PULSE 77; RESP 18; TEMP 36.7; O2SAT 95
[2019-12-25 08:48] VITALS: PULSE 77
[2019-12-25] MEDS: NIFEdipine 30 MG TAB.ER.24 60 MG PO (08:48)
[2019-12-25] MEDS: ASPIRIN 81 MG CHEWABLE TABLET PO (08:48)
[2019-12-25] MEDS: lisinopriL 10 MG TABLET PO (08:48)
[2019-12-25] MEDS: ATORVASTATIN 40 MG TABLET PO (08:48)
[2019-12-25] MEDS: CLOPIDOGREL BISULFATE 75 MG TABLET PO (08:48)
[2019-12-25] MEDS: modafiniL (*CRX) 100 MG TABLET PO (08:48)
[2019-12-25] MEDS: LABETALOL HCL 100 MG TABLET 50 MG PO ×2 (08:48→20:27)
[2019-12-25] MEDS: PANTOPRAZOLE 40 MG TABLET PO (08:48)
--- NOTE | 2019-12-25 11:49 | PC.NURSE ---
In chair watching TV
[2019-12-25 16:00] VITALS: BP 118/53; PULSE 77; RESP 18; TEMP 36.6; O2SAT 95
--- NOTE | 2019-12-25 18:19 | PC.NURSE ---
In chair, has been conversive and pleasant today
[2019-12-25 20:27] VITALS: PULSE 72
--- NOTE | 2019-12-25 21:27 | PC.NURSE ---
Patient incontinent of bm. Dried bm part way up his back, on his buttocks, thighs and genitals. Patient also incontinent of urine. Call light in reach.
[2019-12-26] VITALS: BP 133/73; PULSE 66; RESP 16; TEMP 36.6; O2SAT 95
[2019-12-26 07:48] VITALS: BP 129/65; PULSE 58; RESP 18; TEMP 36.9; O2SAT 95
[2019-12-26] MEDS: NIFEdipine 30 MG TAB.ER.24 60 MG PO (08:50)
[2019-12-26] MEDS: modafiniL (*CRX) 100 MG TABLET PO (08:50)
[2019-12-26] MEDS: CLOPIDOGREL BISULFATE 75 MG TABLET PO (08:51)
[2019-12-26] MEDS: PANTOPRAZOLE 40 MG TABLET PO (08:51)
[2019-12-26] MEDS: lisinopriL 10 MG TABLET PO (08:51)
[2019-12-26] MEDS: ATORVASTATIN 40 MG TABLET PO (08:51)
[2019-12-26] MEDS: ASPIRIN 81 MG CHEWABLE TABLET PO (08:51)
[2019-12-26 08:52] VITALS: PULSE 60
[2019-12-26] MEDS: LABETALOL HCL 100 MG TABLET 50 MG PO ×2 (08:52→20:30)
[2019-12-26 15:21] VITALS: BP 101/65; PULSE 67; RESP 18; TEMP 36.6; O2SAT 95
--- NOTE | 2019-12-26 18:01 | PC.NURSE ---
In chair, denies needs
[2019-12-26 20:30] VITALS: PULSE 76
[2019-12-27] VITALS: BP 128/68; PULSE 60; RESP 16; TEMP 36.7; O2SAT 98
--- NOTE | 2019-12-27 07:29 | PM.DS ---
DS: Admitting Diagnosis Admitting Diagnosis Admitting Diagnosis: rehab s/p CVA X 2 DS: Discharge Diagnosis Discharge Diagnosis (1) CVA (cerebral vascular accident): Code(s): I63.9 - Cerebral infarction, unspecified Status: Acute Assessment and Plan: 12/27/2019 Continue aspirin 81 mg daily, Plavix 75 mg daily, Continue physical therapy/Occupational Therapy as home health with [place] and [facility], Patient will discharge to [facility] due to 24-hour supervision with a walker (2) Hypertension: Code(s): I10 - Essential (primary) hypertension Status: Acute Assessment and Plan: 12/27/2019 Stable control, Continue labetalol 50 mg p.o. every 12 hours, lisinopril 10 mg p.o. daily, Procardia 60 mg p.o. daily (3) CAD (coronary artery disease): Code(s): I25.10 - Atherosclerotic heart disease of [place] coronary artery without angina pectoris Status: Acute Assessment and Plan: 12/27/2019 Continue atorvastatin 40 mg p.o. daily, Continue aspirin 81 mg daily (4) Weakness: Code(s): R53.1 - Weakness Status: Acute Assessment and Plan: 12/27/2019 continue PT/OT/ST with [facility], patient should have a walker waiting for him at home DS: Summary Time Spent with Patient Time attestation: Total time spent providing and/or coordinating discharge services: <30 Exam Const: General: cooperative and no acute distress Nutritional Appearance: average body habitus Orientation/consciousness: oriented to person, oriented to place and oriented to time Resp: Effort & Inspection: normal respiratory effort Auscultation: clear to auscultation bilaterally Cardio: Rate: regular rate Rhythm: regular rhythm Heart sounds: S1 normal heart sound present and S2 normal heart sound present Neuro: Speech: Other speech findings present (Neuro) ( still slow but definitely improved) Motor exam (neuro): Other motor observations present ( in general patient moves slowly talks slowly) Extrem: Right lower extremity: no edema Left lower extremity: no edema Discharge Plan Discharge Attending physician on discharge: Candice Martin Discharging Clinician: John Olivier Anticipated Discharge Date/Time: 12/27/19 14:30 Patient Disposition: Home Health Service Activity: as tolerated Diet: heart healthy Discharge Instructions: [facility] TO FOLLOW AT DISCHARE- PT/OT/ST evaluation and treatment PHONE: [phone] NURSING TO FAX DISCHARGE INSTRUCTIONS TO [phone] Patient Instructions: Antibiotic Form Stand Alone Forms: General Discharge Information Follow-up/Referrals: Laurent Narayan MD [Primary Care Provider] - Discharge Medications: Continued Adult Low Dose Aspirin 81 mg tablet 81 mg BYMOUTH DAILY RF: 0 labetalol 100 mg tablet 50 mg BYMOUTH BID RF: 0 lisinopril 10 mg tablet 10 mg BYMOUTH DAILY RF: 0 modafinil 100 mg tablet 100 mg BYMOUTH DAILY RF: 0 nifedipine tablet 60 mg BYMOUTH DAILY RF: 0 pantoprazole tablet 40 mg BYMOUTH DAILY RF: 0 atorvastatin 1 tablet tablet 40 mg BYMOUTH DAILY RF: 0 clopidogrel 1 tablet tablet 75 mg BYMOUTH DAILY RF: 0 Date of admission: 12/14/19 19:04 Primary Care Provider: Laurent Narayan Admitting Provider: Thien Adam Attending physician on admission: Thien Adam Condition: Improved
[2019-12-27 08:00] VITALS: BP 144/79; PULSE 63; RESP 18; TEMP 36.9; O2SAT 100
[2019-12-27] MEDS: lisinopriL 10 MG TABLET PO (08:56)
[2019-12-27] MEDS: modafiniL (*CRX) 100 MG TABLET PO (08:56)
[2019-12-27] MEDS: NIFEdipine 30 MG TAB.ER.24 60 MG PO (08:56)
[2019-12-27] MEDS: ASPIRIN 81 MG CHEWABLE TABLET PO (08:56)
[2019-12-27] MEDS: CLOPIDOGREL BISULFATE 75 MG TABLET PO (08:56)
[2019-12-27] MEDS: ATORVASTATIN 40 MG TABLET PO (08:56)
[2019-12-27 08:57] VITALS: PULSE 63
[2019-12-27] MEDS: LABETALOL HCL 100 MG TABLET 50 MG PO (08:57)
[2019-12-27] MEDS: PANTOPRAZOLE 40 MG TABLET PO (08:57)
[2019-12-27 16:00] VITALS: BP 101/63; PULSE 65; RESP 16; TEMP 36.8; O2SAT 96
== END 2019-12-27 19:00 | disposition home health service (06) | DRG 57 ==
PROVIDERS: Nurse Practitioner; Admitting Provider Emergency Medicine; PCP Internal Medicine; Visit Provider Emergency Medicine
DX: I69.398 Other sequelae of cerebral infarction (principal); I69.328 Other speech and language deficits following cerebral infarction; I25.10 Atherosclerotic heart disease of native coronary artery without angina pectoris; I10 Essential (primary) hypertension
CPT/HCPCS: 36415; 80053; 85025; 85027; 92507; 92523; 97110; 97161; 97166; 97530; 97535; A9270

== ENCOUNTER 2020-01-08 08:15 | Outpatient (CLI) | payer OTHER, SELFPAY | END 2020-01-08 08:16 | disposition home or self-care (01) | LOC: CHSIMG 08:16 | PROVIDERS: PCP Internal Medicine; Visit Provider Internal Medicine | DX: Z53.8 Procedure and treatment not carried out for other reasons (principal) | CPT/HCPCS: 99199 ==

== ENCOUNTER 2020-08-08 15:47 | Outpatient (CLI) | payer OTHER, SELFPAY ==
--- NOTE | ~2020-08-08 | XR_ITS ---
EXAMINATION: XR shoulder LT min 2V DATE: 08/08/2020 16:10 INDICATION: Left shoulder pain. TECHNIQUE: 5 views of left shoulder were obtained. COMPARISON: None. FINDINGS: Bone alignment is normal. No fracture. Glenohumeral joint is normal. There is mild acromioc lavicular joint osteoarthritis. IMPRESSION: 1. Mild acromioclavicular joint osteoarthritis. Reviewed, dictated and finalized at location [facility].
== END 2020-08-08 15:48 | disposition home or self-care (01) ==
LOC: CHSIMG 15:50
PROVIDERS: PCP Internal Medicine; Visit Provider Internal Medicine
DX: M25.512 Pain in left shoulder (principal)
CPT/HCPCS: 73030

== ENCOUNTER 2020-11-20 21:54 | Emergency (ER) | payer OTHER, SELFPAY ==
--- NOTE | ~2020-11-20 | CT_ITS ---
EXAMINATION: CT brain wo con DATE: 11/20/2020 22:50 INDICATION: Confusion, dizziness TECHNIQUE: Computed tomography (CT) of the head was performed without intravenous contrast. The mA wa s adjusted according to patient size. Iterative reconstruction technique was employed. Exam dose: 68 1.00 mGy-cm total exam DLP. COMPARISON: 12/04/2019 CT brain FINDINGS: There is a chronic posterior oh inferomedial left cerebellar hemispheric infarct. This was not present however on 12/04/2019. There is a chronic left occipital infarct, also not present on 12/04/2019. There is a subacute prominent right parietal occipital infarct. There are chronic old right parietal infarcts, present on 12/04/2019. Bilateral chronic lacunar infarct s of the heads of the caudate nuclei, chronic bilateral lytic millimeters infarcts of the basal gangl ia. No intracranial mass lesion or hemorrhage, midline shift or mass effect effect or subdural or epidura l hematoma is detected. No fracture or bone destruction of the cranial vault. There is minimal right ethmoid air cell opacification. The included paranasal sinuses and the mastoid air cells otherwise are normally developed and aerated. IMPRESSION: Subacute right posterior parietal occipital infarct Chronic left occipital and left cerebellar infarcts, although new since 12/24/2019 Chronic right parietal and bilateral caudate and basal ganglia lacunar infarcts, present on 12/04/2019 Reviewed, dictated and finalized at [facility]. Reviewed, dictated and finalized at location A. IMPRESSION: Subacute right posterior parietal occipital infarct Chronic left occipital and left cerebellar infarcts, although new since 12/24/19 20 Chronic right parietal and bilateral caudate and basal ganglia lacunar infarcts , present on 12/04/2019
[2020-11-20 22:15] VITALS: BP 125/85; PULSE 67; RESP 20; TEMP 36.7; O2SAT 100
[2020-11-20 22:39] LABS: Basophils Absolute Auto 0.07 K/mm3 (0.00-0.10); Basophils Percent Auto 0.6 % (0.0-1.0); Eosinophils Absolute Auto 0.05 K/mm3 (0.02-0.50); Eosinophils Percent Auto 0.5 % (1.0-6.0); Hematocrit 46.8 % (40.0-54.0); Immature Granulocyte Absolute 0.14 K/mm3 (0.00-0.00); Immature Granulocyte Percent A 1.3 % (0.0-0.0); Lymphocytes Absolute Auto 1.51 K/mm3 (1.10-4.50); Lymphocytes Percent Auto 13.6 % (18.0-42.0); Mean Corpuscular HGB Conc 32.1 g/dL (32.0-36.0); Mean Corpuscular Hemoglobin 30.9 pg (27.0-31.0); Mean Corpuscular Volume 96.3 fL (78.0-102.0); Mean Platelet Volume 10.2 fl (8.7-11.0); Monocytes Absolute Auto 0.78 K/mm3 (0.10-0.90); Neutrophils Absolute Auto 8.5 K/mm3 (1.7-7.2); Platelet Count Result 320 K/mm3 (150-420); Red Blood Count 4.86 M/mm3 (4.70-6.10); Red Cell Distribution Width 12.9 % (11.6-14.4); White Blood Count 11.1 K/mm3 (4.8-10.8)
[2020-11-20 22:54] LABS: Alanine Aminotransferase 13 U/L (16-63); Albumin Level 4.3 g/dL (3.4-5.0); Alkaline Phosphatase 100 U/L (46-116); Anion Gap 8 mmol/L (8-16); Aspartate Amino Transferase 11 U/L (15-37); Bilirubin,Total 0.5 mg/dL (0.00-1.00); Blood Urea Nitrogen 31 mg/dL (7-18); Calcium 9.9 mg/dL (8.5-10.1); Carbon Dioxide 31 mmol/L (21-32); Chloride 103 mmol/L (98-108); Estimated CRCL calculation 27 ml/min; Estimated Glomerular Filt Rate 25; Glucose 98 mg/dL (70-99); Osmolality Calculated 300 mOsm/kg (285-295); Potassium 4.4 mmol/L (3.5-5.1); Sodium 142 mmol/L (136-145); Total Protein 8.4 g/dL (6.4-8.2)
[2020-11-20] MEDS: SODIUM CHLORIDE 0.9% IV 1,000 ML 999 ML IV CONT (23:00)
[2020-11-20] MEDS: MECLIZINE HCL 25 MG TABLET PO (23:00)
--- NOTE | 2020-11-20 23:13 | ED.DIZZY ---
HPI - Dizziness General Chief Complaint: Dizziness Stated Complaint: disorientated Source: patient Mode of arrival: wheelchair History of Present Illness HPI Narrative: this is a 60-year-old gentleman with a history of CVA that was some treated approximately 2 to 3 months ago recently saw his primary care physician today and was told that he is going to have long-term memory issues, has been having dizziness, patient has a son as a caregiver and felt that meclizine was making him more dizzy and had discontinued the medicine. Currently the patient is at his baseline as far as mental status concern, does state that he is dizzy but not taking his meclizine as prescribed. There is no chest pain no shortness of breath no neurological deficits no weakness in his arms or legs responds appropriately to questions no fever chills no chest pain no shortness of breath no abdominal pain. MD elicited complaint: dizziness Onset (ago): week(s) Timing: gradual onset Severity: mild Description: sense of movement Context: change in medication History of similar symptoms: Yes Exacerbating factors: movement/ambulation and change in body position Relieving factors: remaining still Associated symptoms: denies other symptoms Related Data Home Medications Medication Instructions Recorded Confirmed lisinopril 10 mg BYMOUTH DAILY 12/14/19 12/14/19 metoprolol succinate 25 mg PO DAILY 11/20/20 11/20/20 pantoprazole 40 mg PO DAILY 11/20/20 11/20/20 Allergies Allergy/AdvReac Type Severity Reaction Status Date / Time Unable to Assess Allergy Verified 12/04/19 17:23 Review of Systems Review of Systems: All systems reviewed & are unremarkable except as noted in HPI and below PMFSH Past Medical History Medical History CAD (coronary artery disease) CVA (cerebral vascular accident) Hypertension Social History Social History Smoking status: Unknown if ever smoked Second hand tobacco smoke exposure: Yes Alcohol intake: unknown Substance use: unknown Substance use type: unknown Gender identity (if verbalized by the patient): Male Exam Const: General: no acute distress and alert Orientation/consciousness: patient oriented x3 HENMT: Head: normal to inspection Eyes: Conjunctivae: conjunctivae normal Pupils: Equal, round and reactive pupils present EOM: EOMs intact bilaterally Neck: Neck: normal visual inspection, no lymphadenopathy and no meningeal signs Chest: Chest palpation & inspection: normal inspection of the chest Resp: Effort & Inspection: normal respiratory effort Cardio: Rate: regular rate Rhythm: regular rhythm GI: GI Palp: Yes Soft to palpation Percussion: Yes normal to percussion Back/Spine/Pelvis: Back: no CVA tenderness Skin: General skin exam: normal color Rashes: no rashes Neuro: General: patient oriented x3, no meningeal signs and no focal motor deficits Extrem: General: normal to inspection and no pedal edema Psych: Appearance: grossly normal Mental Status: mental status grossly normal Course Course Emergency Course: Review CT scan findings and lab findings with patient and family patient received IV fluids along with a dose of meclizine advised close follow-up with his primary care physician and continue current medical management. Vital Signs Vital signs: Vital Signs Temperature 36.7 C 11/20/20 22:15 Pulse Rate 67 11/20/20 22:15 Respiratory Rate 20 11/20/20 22:15 Blood Pressure 125/85 11/20/20 22:15 Pulse Oximetry 100 11/20/20 22:15 Temperature 36.7 C 11/20/20 22:15 Pulse Rate 67 11/20/20 22:15 Respiratory Rate 20 11/20/20 22:15 Blood Pressure 125/85 11/20/20 22:15 Pulse Oximetry 100 11/20/20 22:15 MDM - Dizziness Lab Data Result diagrams: 11/20/20 22:36 11/20/20 22:36 Labs: Lab Results 11/20/2011/20
[2020-11-20 23:55] VITALS: BP 128/74; PULSE 64; RESP 20; TEMP 36.6; O2SAT 100
== END 2020-11-20 23:57 | disposition home or self-care (01) ==
PROVIDERS: Emergency Provider Emergency Medicine; PCP Internal Medicine
DX: R42 Dizziness and giddiness (principal)
CPT/HCPCS: 36415; 70450; 80053; 85025; 96360; 99283; 99284; A9270; J7030

== ENCOUNTER 2020-12-06 23:35 | Emergency (ER) | payer OTHER, SELFPAY ==
--- NOTE | ~2020-12-06 | CT_ITS ---
EXAMINATION: CT brain wo con DATE: 12/07/2020 01:10 INDICATION: Altered mental status. TECHNIQUE: Computed tomography (CT) of the head was performed without intravenous contrast. The mA wa s adjusted according to patient size. Iterative reconstruction technique was employed. The dose-lengt h product was 605.33 mGy-cm. COMPARISON: Head CT 11/20/2020, 12/04/2019 FINDINGS: There are old infarcts in the cerebellum bilaterally. There are old infarcts in the left oc cipital lobe, bilateral basal ganglia, and right thalamus. There are old infarcts in right frontal an d parietal lobes. Again seen is an infarct in the right temporal occipital region with new foci of co rtical hyperdensity. There is an infarct in right parietal lobe with interval worsening. There is no abnormal mass lesion. The ventricles are normal in size. There is mild mucosal thickening in the ethm oid sinuses. The mastoid air cells are normal. The orbits are normal. IMPRESSION: 1. Subacute infarct in right temporal occipital region. New cortical hyperdensity may be calcificatio n or hemorrhage. 2. Worsened subacute infarct in right parietal lobe. 3. Multiple old infarcts in the brain. 4. I discussed these results with Dr. Adam. Reviewed, dictated and finalized at location [facility]. IMPRESSION: 1. Subacute infarct in right temporal occipital region. New cortical hyperdensi ty may be calcification or hemorrhage. 2. Worsened subacute infarct in right parietal lobe. 3. Multiple old infarcts in the brain. 4. I discussed these results with Dr. Adam.
--- NOTE | ~2020-12-06 | XR_ITS ---
EXAMINATION: XR chest 1V portable DATE: 12/07/2020 01:10 INDICATION: Altered mental status. TECHNIQUE: A single frontal view of the chest was obtained. COMPARISON: Chest 2 views 11/18/2017, chest CT 12/04/2019 FINDINGS: The chest demonstrates clear lungs without pneumonia, pleural effusion, or pneumothorax. Th e heart size is normal. IMPRESSION: 1. No acute cardiopulmonary disease. Reviewed, dictated and finalized at location A.
--- NOTE | 2020-12-06 23:46 | ECG_ITS ---
Measurements Intervals [place] Rate: 92 P: 69 OK: 158 QRS: -69 QRSD: 102 T: 109 QT: 346 QTc: 429 Interpretive Statements SINUS RHYTHM LEFT AXIS DEVIATION LEFT VENTRICULAR HYPERTROPHY AND ST-T CHANGE POOR R WAVE PROGRESSION, ANTERIOR LEADS ST-T WAVE ABNORMALITY IN HIGH LATERAL LEADS- CONSIDER ISCHEMIA BASELINE ARTIFACT- I, II, III, AVR, AVL, AVF, V1-V2 ABNORMAL ECG Electronically Signed On 12-07-2020 8:33:29 CDT by Adam Hair D.O.
--- NOTE | 2020-12-06 23:47 | ED.AMS ---
HPI - Altered Mental Status General Chief Complaint: Altered Mental Status Stated Complaint: Confusion Time Seen by Provider: 12/06/20 23:47 Source: EMS Mode of arrival: EMS Limitations: altered mental status History of Present Illness HPI narrative: 60-year-old man with a history of hypertension and stroke brought to the emergency department by EMS after his family called because he has had increasing confusion over the last 3 days. He has had decreased activity and decreased oral intake. Denies chest pain, headache. complaint: altered mental status Onset (ago): day(s) (3) Timing confirmed by: family member Severity: moderate Consistency of symptoms: getting Worse Context: history of similar presentation and other (CVA) Treatments prior to arrival: IV fluid and oxygen Related Data Home Medications Medication Instructions Recorded Confirmed pantoprazole 40 mg PO DAILY 11/20/20 12/07/20 lisinopril 20 mg PO DAILY 12/07/20 12/07/20 metoprolol succinate 25 mg PO DAILY 12/07/20 12/07/20 Allergies Allergy/AdvReac Type Severity Reaction Status Date / Time No Known Allergies Allergy Verified 12/07/20 00:14 Review of Systems Review of Systems: ROS unobtainable: Yes unobtainable due to mental status PMFSH Past Medical History Medical History CAD (coronary artery disease) CVA (cerebral vascular accident) Hypertension Social History Social History Smoking status: Unknown if ever smoked Second hand tobacco smoke exposure: Yes Alcohol intake: unknown Substance use: unknown Substance use type: unknown Gender identity (if verbalized by the patient): Male Exam Const: General: no acute distress Limitations: altered mental status HENMT: Head: normal to inspection Face and sinus: normal facial exam Eyes: Conjunctivae: conjunctivae normal Pupils: Equal, round and reactive pupils present EOM: EOMs intact bilaterally Resp: Effort & Inspection: normal respiratory effort and not labored Auscultation: clear to auscultation bilaterally, no rales, no rhonchi and no wheezes Cardio: Rate: regular rate and tachycardic GI: GI Palp: Yes Soft to palpation and No Tenderness to palpation present (GI) Skin: General skin exam: no jaundice and no pallor Rashes: no rashes Other: Purple and cold hands and feet Neuro: General: moves all extremities and CN's II-XI intact bilaterally Other: Withdraws to pain. Incomprehensible verbalization. Extrem: General: normal to inspection and no clubbing, cyanosis or edema Psych: Appearance: disheveled Course Course Emergency Course: 0042: Discussed findings with Dr. Mccarty, hospitalist at [facility] in [place]. He accepted the patient for transfer. Will start heparin drip. 0730: Overread on CT brain from last night identified subacute infarct in the right temporal occipital and right parietal regions. Possible hemorrhage vs calcification. Faxed result to patient's floor and discussed with Dr Olivera, hospitalist caring for Mr Crockett. Films pushed to [facility]. Vital Signs Vital signs: Vital Signs Temperature 35.8 C L 12/07/20 00:18 Pulse Rate 102 H 12/07/20 00:18 Respiratory Rate 20 12/07/20 00:18 Blood Pressure 129/96 H 12/07/20 00:18 Pulse Oximetry 98 12/07/20 00:18 Temperature 36.2 C L 12/07/20 03:15 Pulse Rate 79 12/07/20 03:15 Respiratory Rate 18 12/07/20 03:15 Blood Pressure 101/73 12/07/20 03:15 Pulse Oximetry 100 12/07/20 03:15 MDM - Altered Mental Status Differential Diagnosis Differential diagnosis: Likely delirium, hyponatremia, subarachnoid hemorrhage, sepsis and other (Hypertensive emergency) Lab Data Result diagrams: 12/07/20 00:41 12/07/20 00:42 Labs: Lab Results 12/07/20 12/07/20 12/07/20 Range/Units 00:02 00:07 00:41 WBC 12.6 H (4.8-10.8) K/mm3 RB
[2020-12-07] MEDS: niCARdipine 20 MG/200 ML 20 MG/200 ML BAG 50 MG IV CONT (00:11)
[2020-12-07 00:18] VITALS: BP 129/96; PULSE 102; RESP 20; TEMP 35.8; O2SAT 98
[2020-12-07 00:25] VITALS: BP 111/74; PULSE 88; RESP 20; TEMP 35.8; O2SAT 100
[2020-12-07 00:29] VITALS: BP 111/74; PULSE 89
--- NOTE | 2020-12-07 00:46 | PC.NURSE ---
pt taken to xray department per stretcher.
[2020-12-07 00:48] LABS: Basophils Absolute Auto 0.05 K/mm3 (0.00-0.10); Basophils Percent Auto 0.4 % (0.0-1.0); Eosinophils Absolute Auto 0.05 K/mm3 (0.02-0.50); Eosinophils Percent Auto 0.4 % (1.0-6.0); Hematocrit 43.9 % (40.0-54.0); Hemoglobin 14.4 g/dL (14.0-18.0); Immature Granulocyte Absolute 0.19 K/mm3 (0.00-0.00); Immature Granulocyte Percent A 1.5 % (0.0-0.0); Lymphocytes Absolute Auto 1.24 K/mm3 (1.10-4.50); Lymphocytes Percent Auto 9.8 % (18.0-42.0); Mean Corpuscular HGB Conc 32.8 g/dL (32.0-36.0); Mean Corpuscular Hemoglobin 30.4 pg (27.0-31.0); Mean Corpuscular Volume 92.6 fL (78.0-102.0); Mean Platelet Volume 11.1 fl (8.7-11.0); Monocytes Absolute Auto 0.78 K/mm3 (0.10-0.90); Monocytes Percent Auto 6.2 % (2.0-11.0); Neutrophils Absolute Auto 10.3 K/mm3 (1.7-7.2); Neutrophils Percent Auto 81.7 % (50.0-70.0); Platelet Count Result 280 K/mm3 (150-420); Red Blood Count 4.74 M/mm3 (4.70-6.10); Red Cell Distribution Width 12.6 % (11.6-14.4); White Blood Count 12.6 K/mm3 (4.8-10.8)
[2020-12-07 00:51] LABS: Add Urine Microscopic? YES; Appearance Urine Clear (Clear); Bilirubin Urine 1+ (Negative); Blood Urine 3+ (Negative); Color Urine Yellow (Yellow); Glucose Urine UA Negative (Negative); Ketones Urine 1+ (Negative); Leukocyte Esterase Ur Negative LEU/UL (Negative); Nitrate Urine Negative (Negative); Protein Urine Negative (Negative); Specific Grav Ur 1.025 (1.010-1.020); pH Urine 5.5 (5.0-8.0)
[2020-12-07 00:59] LABS: Bacteria Urine 1+ /hpf; Mucus Urine Rare /lpf; RBC Urine 21-50 /hpf (0-2); Squamous Epithelial Cell Urine None seen /hpf (Few); WBC Urine 0-3 /hpf (0-3)
[2020-12-07 01:05] LABS: INR 1.1; Partial Thromboplastin Time 26.3 SEC (23.90-30.70); Prothrombin Time 11.4 Seconds (9.50-12.10)
[2020-12-07 01:15] VITALS: BP 101/71; PULSE 83; RESP 18; TEMP 35.8; O2SAT 100
[2020-12-07 01:16] LABS: Alanine Aminotransferase 55 U/L (16-63); Albumin Level 3.5 g/dL (3.4-5.0); Alkaline Phosphatase 93 U/L (46-116); Anion Gap 13 mmol/L (8-16); Aspartate Amino Transferase 25 U/L (15-37); Bilirubin,Total 0.8 mg/dL (0.00-1.00); Blood Urea Nitrogen 65 mg/dL (7-18); CRP 3.2 mg/dL (0.0-0.9); Carbon Dioxide 24 mmol/L (21-32); Chloride 104 mmol/L (98-108); Estimated Glomerular Filt Rate 23; Glucose 152 mg/dL (70-99); Lipase 181 U/L (73-393); Osmolality Calculated 313 mOsm/kg (285-295); Sodium 141 mmol/L (136-145); Total Protein 7.4 g/dL (6.4-8.2)
[2020-12-07 01:25] LABS: Troponin I 673.7 ng/L (0.00-60.4)
[2020-12-07 01:26] LABS: SARS-CoV-2 Ag Negative (Negative)
[2020-12-07] MEDS: ASPIRIN 81 MG CHEWABLE TABLET 324 MG PO (02:13)
[2020-12-07] MEDS: SODIUM CHLORIDE 0.9% IV 1,000 ML 999 ML IV CONT (02:18)
[2020-12-07] MEDS: HEPARIN SODIUM 5,000 UNITS/ML VIAL 3000 UNITS IV PUSH (02:42)
[2020-12-07] MEDS: HEPARIN SOD/D5W 100 UNITS/ML 25,000 UNITS/250 ML BAG 6 UNITS (02:48)
[2020-12-07 03:15] VITALS: BP 101/73; PULSE 79; RESP 18; TEMP 36.2; O2SAT 100
[2020-12-07 03:45] LABS: Reflex Lactic Acid Yes or No Add Lactic
[2020-12-07 04:05] LABS: Lactic Acid 2.4 mmol/L (0.4-2.0)
== END 2020-12-07 03:58 | disposition short-term general hospital (02) ==
PROVIDERS: Emergency Provider Emergency Medicine
DX: R41.82 Altered mental status, unspecified (principal); I21.4 Non-ST elevation (NSTEMI) myocardial infarction; I63.9 Cerebral infarction, unspecified; Z20.822 Contact with and (suspected) exposure to COVID-19
CPT/HCPCS: 36415; 70450; 71045; 80053; 81001; 83605; 83690; 84484; 85025; 85610; 85730; 86140; 87040; 87426; 93005; 96365; 96367; 99285; A9270; C9803; J1644; J7030

== ENCOUNTER 2021-02-27 23:20 | Emergency (ER) | payer OTHER, SELFPAY ==
--- NOTE | ~2021-02-27 | XR_ITS ---
EXAMINATION: XR chest 1V portable DATE: 02/28/2021 05:52 INDICATION: Syncope TECHNIQUE: frontal view of the chest was obtained. COMPARISON: Chest radiograph dated 12/07/2020 FINDINGS: The lungs remain clear with no focal airspace opacities, pulmonary edema, pleural effusion or pneumot horax. Mild cardiomegaly. Left pectoral implantable pvc monitor. Defibrillator pad projects over the central left chest. Visualized bones and soft tissues are unremarkable. IMPRESSION: 1. Cardiomegaly. No acute cardiopulmonary disease. Reviewed, dictated and finalized at location A. CAL RESEARCHER
--- NOTE | ~2021-02-27 | CT_ITS ---
CORRECTED REPORT ORDER CHANGED TO CT BRAIN W/O 02/28/2021 ELIER EXAMINATION: CT brain wo con DATE: 02/27/2021 23:36 INDICATION: Syncope. TECHNIQUE: Computed tomography (CT) of the head was performed without intravenous contrast. The mA was adjusted according to patient size. Iterative reconstruction technique was employed. The dose-length product was 605.33 mGy- cm. COMPARISON: Head CT 12/07/2020 FINDINGS: There are old infarcts in the cerebellum bilaterally, left worse than right. There is an old infarct in right temporal occipital region. There is an old infarct in left occipital lobe. There are old infarcts in the bilateral basal ganglia and thalami. There are old infarcts in the right frontal and parietal lobes. There is no intracranial hemorrhage, acute infarction, or abnormal intracranial mass lesion. There is ex vacuo dilatation of the lateral ventricles. There is mild mucosal thickening in the ethmoid sinuses. The orbits are normal. The mastoid air cells are normal. IMPRESSION: 1. Multiple old infarcts in the brain. Reviewed, dictated and finalized at location A. E SCIENCES DIRECTOR HELLEN
[2021-02-27 23:20] VITALS: PULSE 79; RESP 20; O2SAT 100
[2021-02-27 23:25] VITALS: PULSE 84
--- NOTE | 2021-02-27 23:25 | ECG_ITS ---
Measurements Intervals [place] Rate: 46 P: [place]: 0 QRS: 265 QRSD: 154 T: 31 QT: 661 QTc: 580 Interpretive Statements SINUS RHYTHM WITH COMPLETE HEART BLOCK JUNCTIONAL ESCAPE RHYTHM RIGHT AXIS DEVIATION INFERIOR ST ELEVATIOM MYOCARDIAL INFARCT- ACUTE POSTERIOR INFARCT- ACUTE BASELINE ARTIFACT- I, II, III, AVR, AVL, AVF, V4-V6 ABNORMAL ECG Electronically Signed On 02-28-2021 8:56:11 OPTICAL LABORATORY MANAGER by Adam Hair D.O.
--- NOTE | 2021-02-27 23:41 | ED.AMS ---
HPI - Altered Mental Status General Chief Complaint: Altered Mental Status Stated Complaint: stroke Time Seen by Provider: 02/27/21 23:22 Source: patient, family, EMS and RN notes reviewed Limitations: no limitations History of Present Illness MD complaint: decreased responsiveness and weakness Onset (ago): hour(s) (1) Timing confirmed by: caregiver Severity: similar to previous episodes Consistency of symptoms: constant Context: history of similar presentation Associated symptoms: nausea/vomiting, weakness and other (pt has had 5 prior strokes and is mostly bed-ridden) Treatments prior to arrival: IV fluid Related Data Home Medications Medication Instructions Recorded Confirmed pantoprazole 40 mg PO DAILY 11/20/20 12/07/20 metoprolol succinate 25 mg PO DAILY 12/07/20 12/07/20 atorvastatin [Lipitor] 80 mg PO HS 02/28/21 02/28/21 ezetimibe [Zetia] 10 mg PO HS 02/28/21 02/28/21 losartan 25 mg PO BID 02/28/21 02/28/21 Allergies Allergy/AdvReac Type Severity Reaction Status Date / Time No Known Allergies Allergy Verified 12/07/20 00:14 Review of Systems Review of Systems: All systems reviewed & are unremarkable except as noted in HPI and below PMFSH Past Medical History Medical History CAD (coronary artery disease) CVA (cerebral vascular accident) Hypertension Social History Social History Smoking status: Unknown if ever smoked Second hand tobacco smoke exposure: Yes Alcohol intake: unknown Substance use: unknown Substance use type: unknown Gender identity (if verbalized by the patient): Male Exam Const: General: no acute distress and alert Nutritional Appearance: thin Orientation/consciousness: patient oriented x3 Limitations: other limitations (pt did not verbalize, but was concious, alert and responsive. no acut) HENMT: Head: normal to inspection Ears: external ears normal and TM's normal bilaterally General nose exam: Normal external nose present and Normal nares present Face and sinus: normal facial exam Mouth: Yes lip normal and Yes moist mucous membranes Throat: posterior oropharynx normal Eyes: Conjunctivae: conjunctivae normal Pupils: Equal, round and reactive pupils present EOM: EOMs intact bilaterally Neck: Neck: normal visual inspection and no lymphadenopathy Chest: Chest palpation & inspection: normal inspection of the chest Resp: Effort & Inspection: normal respiratory effort Auscultation: clear to auscultation bilaterally Cardio: Rate: regular rate Rhythm: regular rhythm GI: GI Palp: Yes Soft to palpation and Yes Tenderness to palpation present (GI) Percussion: Yes normal to percussion Auscultation: normal bowel sounds : General: Yes bladder normal to palpation and Yes no CVA tenderness Male General Exam: Yes normal external exam Back/Spine/Pelvis: Back: no CVA tenderness Skin: General skin exam: normal color Rashes: no rashes Neuro: General: patient oriented x3, moves all extremities, no meningeal signs, no focal motor deficits and CN's II-XI intact bilaterally Cranial nerves: Yes Nystagmus present (mild transitory right horizontal nystagmus----during a short seizure episod) horizontal and with right lateral gaze Extrem: General: no pedal edema Other: minimal necrotic 1/3 cm lesion of medial left distal great toe. other left toes with dried skin. pt moved all 4 limbs voluntarily Psych: Appearance: grossly normal Mental Status: mental status grossly normal Affect: Sad affect present Thought content: Yes other (no verbal comments in the ED.) Course Course Emergency Course: Pt had bradycardia and a seizure with minimal vomiting. Repeat EKG showed STEMI. Pt was d/w Horse Trainer and accepted for transfer. See orders. Reevaluation(s) Reevaluation #1: Pt was seriously ill in the ED and was transferred to higher level of care. Date:
[2021-02-27 23:52] LABS: Basophils Absolute Auto 0.07 K/mm3 (0.00-0.10); Basophils Percent Auto 0.5 % (0.0-1.0); Eosinophils Absolute Auto 0.11 K/mm3 (0.02-0.50); Eosinophils Percent Auto 0.7 % (1.0-6.0); Hematocrit 48.2 % (40.0-54.0); Hemoglobin 16.6 g/dL (14.0-18.0); Immature Granulocyte Absolute 0.11 K/mm3 (0.00-0.00); Immature Granulocyte Percent A 0.7 % (0.0-0.0); Lymphocytes Absolute Auto 2.31 K/mm3 (1.10-4.50); Lymphocytes Percent Auto 15.7 % (18.0-42.0); Mean Corpuscular HGB Conc 34.4 g/dL (32.0-36.0); Mean Corpuscular Volume 87.2 fL (78.0-102.0); Mean Platelet Volume 10.5 fl (8.7-11.0); Monocytes Percent Auto 5.4 % (2.0-11.0); Neutrophils Absolute Auto 11.4 K/mm3 (1.7-7.2); Platelet Count Result 386 K/mm3 (150-420); Red Blood Count 5.53 M/mm3 (4.70-6.10); Red Cell Distribution Width 12.3 % (11.6-14.4); White Blood Count 14.8 K/mm3 (4.8-10.8)
--- NOTE | 2021-02-27 23:59 | ECG_ITS ---
Measurements Intervals [place] Rate: 92 P: 68 CO: 166 QRS: -63 QRSD: 103 T: 86 QT: 394 QTc: 489 Interpretive Statements SINUS RHYTHM LEFT ATRIAL ENLARGEMENT LEFT AXIS DEVIATION LEFT VENTRICULAR HYPERTROPHY WITH ST-T CHANGE INFERIOR ST ELEVATION MYOCARDIAL INFARCT- ACUTE POSTERIOR INFARCT- ACUTE BASELINE ARTIFACT- I, II, III, AVR, AVL, AVF, V1 ABNORMAL ECG Electronically Signed On 02-28-2021 8:34:11 SALVAGE CLERK by Adam Hair D.O.
[2021-02-28] VITALS: BP 109/82; PULSE 47; RESP 20; O2SAT 100
[2021-02-28] MEDS: SODIUM CHLORIDE 0.9% IV 500 ML 999 ML IV CONT ×2
[2021-02-28] MEDS: PANTOPRAZOLE SODIUM IV 40 MG VIAL IV PUSH
[2021-02-28] MEDS: ONDANSETRON INJ 4 MG/2 ML VIAL IV PUSH
--- NOTE | 2021-02-28 | PC.NURSE ---
Pt returned from stat head CT and became very pale and started vomiting. Noted rhythm change to SB c elevated ST on monitor, ERP notifed and EKG #2 ordered, stat heart initiated p EKG.
--- NOTE | 2021-02-28 00:02 | PC.NURSE ---
ARCH called, pt still remains alert, states he has Drs at [facility] for past neuro, [facility]'s notified of Stat [facility]. Awaiting call back from Cardiology and clinical laboratory scientist.
[2021-02-28 00:04] LABS: Alanine Aminotransferase 16 U/L (16-63); Albumin Level 4.3 g/dL (3.4-5.0); Alkaline Phosphatase 141 U/L (46-116); Anion Gap 17 mmol/L (8-16); Aspartate Amino Transferase 13 U/L (15-37); Bilirubin,Total 0.8 mg/dL (0.00-1.00); Blood Urea Nitrogen 25 mg/dL (7-18); Carbon Dioxide 25 mmol/L (21-32); Chloride 90 mmol/L (98-108); Estimated CRCL calculation 28 ml/min; Estimated Glomerular Filt Rate 33; Glucose 267 mg/dL (70-99); Osmolality Calculated 287 mOsm/kg (285-295); Potassium 3.1 mmol/L (3.5-5.1); Sodium 132 mmol/L (136-145); Total Protein 8.6 g/dL (6.4-8.2)
[2021-02-28 00:05] LABS: Troponin I 72.3 ng/L (0.00-60.4)
[2021-02-28 00:07] LABS: SARS-CoV-2 Ag Negative (Negative)
[2021-02-28 00:10] VITALS: PULSE 48
--- NOTE | 2021-02-28 00:10 | PC.NURSE ---
See stat heart paperwork per protocol.
[2021-02-28] MEDS: ASPIRIN 300 MG SUPPOSITORY RECTAL (00:22)
[2021-02-28] MEDS: SODIUM CHLORIDE 0.9% IV 1,000 ML 150 ML IV CONT (00:22)
[2021-02-28 00:34] VITALS: BP 155/90; PULSE 65; RESP 20; TEMP 36.3; O2SAT 98
[2021-02-28 00:53] LABS: Glucose Point of Care 182 mg/dl (65-105)
== END 2021-02-28 00:57 | disposition short-term general hospital (02) ==
PROVIDERS: Emergency Provider Emergency Medicine; PCP Internal Medicine
DX: I21.9 Acute myocardial infarction, unspecified (principal); Z20.822 Contact with and (suspected) exposure to COVID-19
CPT/HCPCS: 36415; 70450; 70460; 71045; 80053; 82948; 84484; 85025; 87426; 93005; 96374; 96375; 99285; A9270; C9113; C9803; J1644; J2405; J7030; J7040; Q9967

== ENCOUNTER 2021-03-26 21:09 | Emergency (ER) | payer OTHER, SELFPAY ==
[2021-03-26] VITALS (7 sets, daily range): BP systolic 107–129; BP diastolic 73–93; PULSE 47–93; RESP 15–19; TEMP 36.8; O2SAT 76–100
--- NOTE | ~2021-03-26 | XR_ITS ---
XR chest 1V portable DATE: 03/26/2021 21:24 INDICATION: Syncopal episode. STEMI. History of coronary disease, myocardial infarction TECHNIQUE: Portable upright AP chest on 03/26/2021 at 2119 hours COMPARISON: 02/27/2021 portable AP chest FINDINGS: An electronic device overlies the inner mid left chest. Cardiomegaly. Aortic calcification. No hilar or mediastinal enlargement is evident. Mild infiltrate or atelectasis in the left lower lobe. No pulmonary infiltrate or consolidation, pleu ral effusion or pulmonary vascular congestion or pneumothorax is detected otherwise. There is diffuse osteopenia. IMPRESSION: Mild infiltrate or atelectasis in the left lower lobe Cardiomegaly Diffuse osteopenia Reviewed, dictated and finalized at location A. TURNER
--- NOTE | ~2021-03-26 | CT_ITS ---
EXAMINATION: CT brain wo con DATE: 03/26/2021 21:47 INDICATION: Syncope, fall. Head injury. Possible stroke. History of cerebrovascular accident and myoc ardial infarction. TECHNIQUE: Computed tomography (CT) of the head was performed without intravenous contrast. The mA wa s adjusted according to patient size. Iterative reconstruction technique was employed. Exam dose: 60 5.33 mGy-cm total exam DLP. COMPARISON: 02/27/2021 CT brain FINDINGS: Bilateral old cerebellar infarcts are noted, larger on the left. Chronic right temporal occipital and posterior right parietal infarct. Small posterior medial left occipital chronic infarct. There is chronic watershed infarct between anterior and middle cerebral artery distributions high ove r the right parietal convexity. Bilateral thalamic and basal ganglia chronic lacunar infarcts. There is bilateral sellar vascular and cerebral volume loss. No intracranial mass lesion or hemorrhage, midline shift or mass effect or interval new cerebrovascul ar accident is detected. No subdural or epidural hematoma. No orbital mass lesion. The mastoid air cells and included paranasal sinuses are unremarkable. No fracture or bone destruction of the cranial vault. IMPRESSION: Multiple chronic stable bilateral cerebellar and cerebral infarcts since 02/27/2021 No acute intracranial finding or skull fracture or significant change since 02/27/2021 Reviewed, dictated and finalized at Location A. Reviewed, dictated and finalized at location A. RETE BLOCK MAKER
--- NOTE | ~2021-03-26 | CT_ITS ---
EXAMINATION: CT cervical spine wo con DATE: 03/26/2021 21:47 INDICATION: Syncope. Fall. Head and neck injury. Possible stroke. History of cerebrovascular accident and myocardial infarction TECHNIQUE: Computed tomography (CT) of the cervical spine was performed without intravenous contrast. Automated exposure control and iterative reconstruction technique were employed. Exam dose: 203.89 mGy-cm total exam DLP. COMPARISON: None FINDINGS: There is straightening of the cervical spine which may be due to muscle spasm or positionin g. C1 and C2 are normally aligned and the odontoid process is intact. No fracture or dislocation or lock ed facet or prevertebral soft tissue swelling. There is moderate degenerative disc disease at C4-5. There is severe degenerative disc disease at C5-6 and C6-7. There is degenerative change at the apophyseal joints. Uncovertebral joint spurring is noted at C4-5 and most prominent at C5-6 and C6-7.. IMPRESSION: Straightening of the cervical spine, which may be due to muscle spasm No fracture or dislocation or locked facet Multilevel degenerative disc disease and degenerative changes of the apophyseal joints and particular ly at the C4-5 and to a greater extent C5-6 and C6-7 uncovertebral joints Reviewed, dictated and finalized at Location A. Reviewed, dictated and finalized at location A. MAIN FITTER HELPER IMPRESSION: Straightening of the cervical spine, which may be due to muscle sp asm No fracture or dislocation or locked facet Multilevel degenerative disc disease and degenerative changes of the apophyseal joints and particularly at the C4-5 and to a greater extent C5-6 and C6-7 unco vertebral joints
--- NOTE | 2021-03-26 21:16 | ED.CHESTPAIN ---
HPI - Chest Pain General Chief Complaint: Chest Pain Stated Complaint: STEMI ALERT Source: RN notes reviewed History of Present Illness HPI narrative: Patient presents emergency department from home via EMS for syncopal episode. History is per the patient as well as the patient's ex- Luna who is his caregiver that I called on the phone. Patient was sitting at home and she was making dinner when all she heard the patient's head hit the table she went to see the patient the patient was stiff with his eyes open and staring but not responsive that time she called 911. The patient remained stiff and she been told to lay him down on the ground when EMS arrived the patient was noted to be awake with eyes open but not talking per Betty the patient has a history of dementia as well as numerous previous strokes and MIs with an EF of 25% his care is by Dr. Mckeon in [facility] the patient did recently have a heart attack and [place] on February 27 and had initially been seen at [facility] and was transferred at that time. Patient is currently able to tell me his name he denies any chest pain or abdominal pain at this time but is unable to give any other history per the family the patient is ANO x2 at baseline and is bedridden and will stand ambulate Related Data Home Medications Medication Instructions Recorded Confirmed pantoprazole 40 mg PO DAILY 11/20/20 02/28/21 metoprolol succinate 25 mg PO DAILY 12/07/20 02/28/21 atorvastatin [Lipitor] 80 mg PO HS 02/28/21 02/28/21 ezetimibe [Zetia] 10 mg PO HS 02/28/21 02/28/21 losartan 25 mg PO BID 02/28/21 02/28/21 Allergies Allergy/AdvReac Type Severity Reaction Status Date / Time No Known Allergies Allergy Verified 12/07/20 00:14 Review of Systems Review of Systems: Gen.: Denies fevers or chills ENT: Denies congestion Respiratory: Denies shortness of breath or cough CV: Denies chest pain or palpitations GI: Denies abdominal pain nausea, emesis or diarrhea Musculoskeletal: Denies back pain or muscle pain Neuro: altered mental status Skin: Denies rash Except as documented, all other systems reviewed and negative [facility] Past Medical History Medical History CAD (coronary artery disease) CVA (cerebral vascular accident) Hypertension Social History Social History Smoking status: Unknown if ever smoked Second hand tobacco smoke exposure: Yes Alcohol intake: unknown Substance use: unknown Substance use type: unknown Gender identity (if verbalized by the patient): Male Exam Narrative: APPEARANCE: No acute distress, nontoxic, resting in bed EYES: PERRL HEENT: Normocephalic, atraumatic, OMM RESPIRATORY: No respiratory distress Clear to auscultation bilaterally with no rhonchi wheezing or rales. CARDIOVASCULAR: Regular rate and rhythm without murmurs rubs or gallops. ABDOMINAL: Soft, nontender, nondistended, no rebound or guarding MUSCULOSKELETAl: Moves all extremities. No clubbing, cyanosis or edema. NEURO: Awake and alert x 1 Following commands, speech normal, no focal deficits muscle strength 5 out of 5 in bilateral lower extremities and 4-5 in bilateral upper extremities SKIN:: Warm, dry. No rashes lesions or abrasions PSYCHIATRIC: Normal affect/mood, Course Course Emergency Course: Code STEMI called following EMS activation Reviewed old records including his recent visit post in the hospital I did discuss with patient's son Elie who is POA states patient is a full code as well as Lorena the patient's ex- and caregiver Dr. White came to the emergency department evaluate the patient. At this time code STEMI called off as old EKGs are consistent with similar today. He evaluate the patient's rhythm with patient in a junctional bradycardia this time does not feel the patient needs a temporary pacer. Patient's heart rate remains in the 40s D
[2021-03-26 21:46] LABS: Alanine Aminotransferase 14 U/L (4-50); Albumin Level 4.3 g/dL (3.5-5.1); Alkaline Phosphatase 90 U/L (38-126); Anion Gap 7 mmol/L (8-16); Aspartate Amino Transferase 21 U/L (17-59); Bilirubin,Total 0.7 mg/dL (0.2-1.3); Blood Urea Nitrogen 22 mg/dL (9-20); Calcium 9.1 mg/dL (8.4-10.2); Carbon Dioxide 25 mmol/L (22-30); Chloride 102 mmol/L (98-107); Cholesterol 130 mg/dL (0-200); Estimated CRCL calculation 41 ml/min; Estimated Glomerular Filt Rate 52; Glucose 174 mg/dL (65-110); HDL Direct 30 mg/dL; Potassium 4.1 mmol/L (3.4-5.0); Sodium 134 mmol/L (137-145); Triglycerides 146 mg/dL (<150)
--- NOTE | 2021-03-26 21:46 | ECG_ITS ---
Measurements Intervals [place] Rate: 52 P: ND: 0 QRS: -41 QRSD: 114 T: 186 QT: 478 QTc: 448 Interpretive Statements SINUS RHYTHM WITH COMPLETE HEART BLOCK JUNCTIONAL ESCAPE RHYTHM INTRAVENTRICULAR CONDUCTION DELAY LEFT VENTRICULAR HYPERTROPHY WITH ST-T CHANGE INFERIOR ST ELEVATION MYOCARIDAL INFARCT- ACUTE BASELINE ARTIFACT- I, II, III, AVR, AVL, AVF, V4-V6 ABNORMAL ECG Electronically Signed On 03-27-2021 7:56:22 SELF PAY REPRESENTATIVE by Adam Hair D.O.
--- NOTE | 2021-03-26 21:51 | ECG_ITS ---
Measurements Intervals [place] Rate: 47 P: SD: 0 QRS: -44 QRSD: 108 T: 204 QT: 501 QTc: 447 Interpretive Statements SINUS RHYTHM WITH COMPLETE HEART BLOCK JUNCTIONAL ESCAPE RHYTHM AND VENTRICULAR PREMATURE COMPLEX LEFT VENTRICULAR HYPERTROPHY AND ST-T CHANGE INFERIOR ST ELEVATION MYOCARDIAL INFARCT- RECENT BASELINE ARTIFACT- I, II, III, AVR, AVL, AVF, V1-V6 ABNORMAL ECG Electronically Signed On 03-27-2021 7:59:30 MAMMOGRAPHY TECHNICIAN by Adam Hair D.O.
--- NOTE | 2021-03-26 21:51 | PC.NURSE ---
Dr. White at bedside. No STEMI. laboratory aide sent home.
[2021-03-26 21:57] LABS: LDL Cholesterol Direct 67 mg/dL
[2021-03-26 22:01] LABS: Troponin I 0.083 ng/mL (0.000-0.034)
--- NOTE | 2021-03-26 22:14 | PC.NURSE ---
Phlebotomy at bedside
[2021-03-26 22:28] LABS: Basophils Absolute Auto 0.1 K/mm3 (0.0-0.1); Basophils Percent Auto 0.4 % (0.2-1.2); Eosinophils Absolute Auto 0.2 K/mm3 (0-0.3); Eosinophils Percent Auto 1.1 % (0-4.4); Hematocrit 44.1 % (42.0-52.0); Hemoglobin 14.6 g/dL (14.0-18.0); Immature Granulocyte Absolute 0.12 K/mm3 (0.00-0.031); Immature Granulocyte Percent A 0.8 % (0-0.5); Lymphocytes Absolute Auto 1.51 K/mm3 (0.9-3.2); Lymphocytes Percent Auto 10.1 % (18.3-44.2); Mean Corpuscular HGB Conc 33.1 g/dl (32-36); Mean Corpuscular Hemoglobin 30.7 pg (26-34); Mean Corpuscular Volume 92.8 fl (80-100); Mean Platelet Volume 9.9 fl (7.4-10.4); Monocytes Percent Auto 6.6 % (2.6-8.5); Neutrophils Absolute Auto 12.2 K/mm3 (1.3-6.7); Platelet Count Result 259 k/mm3 (150-375); Red Blood Count 4.75 M/mm3 (4.6-6.20); Red Cell Distribution Width 13.3 % (11.5-14.5)
--- NOTE | 2021-03-26 22:28 | PC.NURSE ---
Pt becoming more alert, stating he is cold. Pt able to state name and knows he is in the hospital. Disoriented to year, but knows president.
[2021-03-26 22:35] LABS: Glucose Point of Care 138 mg/dl (65-105)
[2021-03-26 22:38] LABS: Partial Thromboplastin Time 27.6 SECONDS (22.3-36.8); Prothrombin Time 13.1 Seconds (11.1-14.7)
[2021-03-26 23:00] LABS: Add Urine Microscopic? YES; Appearance Urine Clear (Clear); Bilirubin Urine Negative (Negative); Blood Urine Negative (Negative); Color Urine Yellow (Yellow); Glucose Urine UA 1+ mg/dL (Negative); Ketones Urine Negative (Negative); Leukocyte Esterase Ur Negative LEU/UL (Negative); Mucus Urine Rare /lpf; Nitrate Urine Negative (Negative); Protein Urine 1+ mg/dL (Negative); Specific Grav Ur 1.025 (1.001-1.035); Urobilinogen Urine Negative mg/dL (<2.0); WBC Urine 0-3 /hpf
[2021-03-26] MEDS: PIPERACILLIN/TAZOBACTAM SOD 4.5 GM in SODIUM CHLORIDE 0.9% IV 100 ML 200 ML IVPB (23:12)
[2021-03-26 23:39] LABS: EDCOVIDSCREEN Negative (Negative)
[2021-03-26 23:44] LABS: Lactic Acid Reflex 2.5 mmol/L (0.7-2.1)
--- NOTE | 2021-03-26 23:45 | PC.NURSE ---
called [facility] to request transport. [facility] accepted and will operations approval and call back.
--- NOTE | 2021-03-26 23:58 | PC.NURSE ---
called [facility] to request transport. [facility] does not have a transport truck tonight.
--- NOTE | 2021-03-27 00:05 | PC.NURSE ---
called [facility] and [facility] to request transport. Both declined.
--- NOTE | 2021-03-27 00:09 | PC.NURSE ---
call back from [facility]. ETA [id number]
[2021-03-27 00:12] VITALS: BP 106/60; PULSE 45; RESP 15; O2SAT 96
[2021-03-27 01:07] VITALS: BP 119/81; PULSE 100; RESP 19; O2SAT 98
[2021-03-27 01:28] VITALS: BP 102/69; PULSE 87; RESP 12; O2SAT 100
[2021-03-27 01:34] LABS: Troponin I 0.266 ng/mL (0.000-0.034)
[2021-03-27 02:31] LABS: Reflex Lactic Acid Yes or No Add Lactic
== END 2021-03-27 01:28 | disposition short-term general hospital (02) ==
PROVIDERS: Emergency Provider Emergency Medicine; PCP Internal Medicine
DX: J69.0 Pneumonitis due to inhalation of food and vomit (principal); R00.1 Bradycardia, unspecified; R41.82 Altered mental status, unspecified; R79.89 Other specified abnormal findings of blood chemistry; R94.31 Abnormal electrocardiogram [ECG] [EKG]; Z20.822 Contact with and (suspected) exposure to COVID-19; Z86.73 Personal history of transient ischemic attack (TIA), and cerebral infarction without residual deficits; I25.2 Old myocardial infarction; I10 Essential (primary) hypertension; F03.90 Unspecified dementia, unspecified severity, without behavioral disturbance, psychotic disturbance, mood disturbance, and anxiety; I51.7 Cardiomegaly; M85.88 Other specified disorders of bone density and structure, other site; I44.2 Atrioventricular block, complete
CPT/HCPCS: 36415; 51701; 70450; 71045; 72125; 80053; 80061; 81001; 82948; 83605; 84484; 85025; 85610; 85730; 86850; 86900; 86901; 87040; 87426; 93005; 96365; 99285; A9270; C9803; J0461; J2543

== ENCOUNTER 2021-04-12 12:01 | Observation (INO) | payer OTHER, SELFPAY ==
[2021-04-12] VITALS (10 sets, daily range): BP systolic 147–173; BP diastolic 91–104; PULSE 63–94; RESP 12–20; TEMP 36.6–38.5; O2SAT 96–98; BMI 19.1
--- NOTE | ~2021-04-12 | XR_ITS ---
EXAMINATION: XR chest 1V portable EXAM DATE: 04/12/2021 13:56 INDICATION: Weakness, fever, covid poss. TECHNIQUE: Portable AP frontal chest x-ray was obtained. Comparison is made to prior examination from 03/26/2021. FINDINGS: Cardiac monitoring device. The lungs are clear. There are no pleural effusions. The cardi omediastinal silhouette is within normal limits. There is no pneumothorax suspected. The bones and soft tissues are unremarkable. IMPRESSION: No acute cardiopulmonary findings. Reviewed, dictated and finalized at location A. TWISTING MACHINE OPERATOR
--- NOTE | 2021-04-12 12:07 | ECG_ITS ---
Measurements Intervals [place] Rate: 90 P: 39 ME: 160 QRS: -38 QRSD: 93 T: -29 QT: 376 QTc: 462 Interpretive Statements SINUS RHYTHM LEFT AXIS DEVIATION LEFT VENTRICULAR HYPERTROPHY AND ST-T CHANGE INFERIOR ST ELEVATION MYOCARDIAL INFARCT- PROBABLY RECENT BASELINE ARTIFACT- II, III, AVR ABNORMAL ECG Electronically Signed On 04-12-2021 13:01:37 BOARD LAYER by Adam Hair D.O.
[2021-04-12] MEDS: SODIUM CHLORIDE 0.9% IV 1,000 ML 999 ML IV CONT (12:19)
[2021-04-12 13:03] LABS: SARS-CoV-2 RNA PCR Positive (Negative)
[2021-04-12 13:06] LABS: Basophils Absolute Auto 0.05 K/mm3 (0.00-0.10); Basophils Percent Auto 0.7 % (0.0-1.0); Eosinophils Absolute Auto 0.16 K/mm3 (0.02-0.50); Eosinophils Percent Auto 2.1 % (1.0-6.0); Hematocrit 37.4 % (40.0-54.0); Hemoglobin 12.6 g/dL (14.0-18.0); Immature Granulocyte Absolute 0.06 K/mm3 (0.00-0.00); Immature Granulocyte Percent A 0.8 % (0.0-0.0); Lymphocytes Percent Auto 7.8 % (18.0-42.0); Mean Corpuscular HGB Conc 33.7 g/dL (32.0-36.0); Mean Corpuscular Hemoglobin 30.2 pg (27.0-31.0); Mean Corpuscular Volume 89.7 fL (78.0-102.0); Mean Platelet Volume 9.8 fl (8.7-11.0); Monocytes Absolute Auto 0.86 K/mm3 (0.10-0.90); Monocytes Percent Auto 11.2 % (2.0-11.0); Neutrophils Absolute Auto 5.9 K/mm3 (1.7-7.2); Neutrophils Percent Auto 77.4 % (50.0-70.0); Platelet Count Result 268 K/mm3 (150-420); Red Blood Count 4.17 M/mm3 (4.70-6.10); Red Cell Distribution Width 12.9 % (11.6-14.4); White Blood Count 7.7 K/mm3 (4.8-10.8)
[2021-04-12 13:20] LABS: Partial Thromboplastin Time 28.5 SEC (23.90-30.70); Prothrombin Time 10.8 Seconds (9.50-12.10)
[2021-04-12 13:27] LABS: Alanine Aminotransferase 16 U/L (16-63); Albumin Level 3.8 g/dL (3.4-5.0); Alkaline Phosphatase 91 U/L (46-116); Anion Gap 10 mmol/L (8-16); Aspartate Amino Transferase 12 U/L (15-37); Bilirubin,Total 0.5 mg/dL (0.00-1.00); Blood Urea Nitrogen 14 mg/dL (7-18); Carbon Dioxide 28 mmol/L (21-32); Chloride 93 mmol/L (98-108); Estimated CRCL calculation 45 ml/min; Estimated Glomerular Filt Rate 57; Glucose 105 mg/dL (70-99); NT Pro B Type Natriuretic Pept 5177 pg/mL (0-125); Osmolality Calculated 272 mOsm/kg (285-295); Potassium 3.1 mmol/L (3.5-5.1); Sodium 131 mmol/L (136-145); Total Protein 7.5 g/dL (6.4-8.2)
[2021-04-12 13:29] LABS: CRP 0.3 mg/dL (0.0-0.9)
[2021-04-12 13:30] LABS: Lactic Acid Reflex 1.3 mmol/L (0.4-2.0); Troponin I 89.6 ng/L (0.00-60.4)
--- NOTE | 2021-04-12 13:35 | ED.FEVER ---
HPI - Fever General Chief Complaint: Fever Stated Complaint: ambulance Source: patient and EMS Mode of arrival: EMS History of Present Illness HPI Narrative: this is a 60-year-old gentleman with recent history of 2 weeks ago and was discharged from [facility], his home health nurse was visiting noticed that he was in and had an elevated blood pressure and was brought in by EMS. Currently there is no shortness of breath no chest pain does have fever up to 101.4 with no nausea vomiting no diarrhea constipation no abdominal pain no diaphoresis. MD elicited complaint: fever Related Data Home Medications Medication Instructions Recorded Confirmed pantoprazole 40 mg PO DAILY 11/20/20 02/28/21 metoprolol succinate 25 mg PO DAILY 12/07/20 02/28/21 atorvastatin [Lipitor] 80 mg PO HS 02/28/21 02/28/21 ezetimibe [Zetia] 10 mg PO HS 02/28/21 02/28/21 losartan 25 mg PO BID 02/28/21 02/28/21 Allergies Allergy/AdvReac Type Severity Reaction Status Date / Time No Known Allergies Allergy Verified 12/07/20 00:14 Review of Systems Review of Systems: All systems reviewed & are unremarkable except as noted in HPI and below PMFSH Past Medical History Medical History CAD (coronary artery disease) CVA (cerebral vascular accident) Hypertension Social History Social History Smoking status: Unknown if ever smoked Second hand tobacco smoke exposure: Yes Alcohol intake: unknown Substance use: unknown Substance use type: unknown Gender identity (if verbalized by the patient): Male Exam Const: General: no acute distress and alert Orientation/consciousness: patient oriented x3 Limitations: altered mental status HENMT: Head: normal to inspection and contusion Eyes: Pupils: Equal, round and reactive pupils present EOM: EOMs intact bilaterally Direct Ophthalmoscopy: no photophobia Neck: Neck: normal visual inspection Chest: Chest palpation & inspection: normal inspection of the chest Resp: Effort & Inspection: normal respiratory effort Cardio: Rate: regular rate Rhythm: regular rhythm GI: GI Palp: Yes Soft to palpation Percussion: Yes normal to percussion : Testes: Testes normal Urinary Catheter: Urinary Catheter: patent and draining Skin: General skin exam: normal color Rashes: no rashes Neuro: General: patient oriented x3, moves all extremities, no meningeal signs and no focal motor deficits Extrem: General: normal to inspection and no pedal edema Psych: Mental Status: mental status grossly normal Affect: normal affect Course COMPENSATION/BENEFITS SPECIALIST/PA Physician Supervision Labs reviewed with patient the patient is COVID positive and had elevated troponin as well as an elevated BNP will admit the patient and will monitor his troponins. Vital Signs Vital signs: Vital Signs Temperature 38.5 C H 04/12/21 12:20 Pulse Rate 94 04/12/21 12:20 Respiratory Rate 20 04/12/21 12:20 Blood Pressure 162/102 H 04/12/21 12:20 Pulse Oximetry 98 04/12/21 12:20 Temperature 38.5 C H 04/12/21 12:20 Pulse Rate 94 04/12/21 12:20 Respiratory Rate 20 04/12/21 12:20 Blood Pressure 162/102 H 04/12/21 12:20 Pulse Oximetry 98 04/12/21 12:20 MDM - Fever Lab Data Result diagrams: 04/12/21 12:07 04/12/21 12:07 Labs: Lab Results 04/12/21 04/12/21 04/12/21 Range/Units 12:07 12:07 12:07 WBC 7.7 (4.8-10.8) K/mm3 RBC 4.17 L (4.70-6.10) M/mm3 Hgb 12.6 L (14.0-18.0) g/dL Hct 37.4 L (40.0-54.0) % MCV 89.7 (78.0-102.0) fL MCH 30.2 (27.0-31.0) pg MCHC 33.7 (32.0-36.0) g/dL RDW 12.9 (11.6-14.4) % Plt Count 268 (150-420) K/mm3 MPV 9.8 (8.7-11.0) fl Immature Gran % (Auto) 0.8 H (0.0-0.0) % Neut % (Auto) 77.4 H (50.0-70.0) % Lymph % (Auto) 7.8 L (18.0-42.0) % Boyd % (Auto) 11.2 H (2.0-11.0)
[2021-04-12] MEDS: KCL 20 MEQ/SW 100 ML 100 ML 50 MEQ IVPB (14:43)
[2021-04-12] MEDS: SODIUM CHLORIDE 0.9% IV 500 ML 999 ML IV CONT (14:43)
[2021-04-12] MEDS: ACETAMINOPHEN 500 MG TABLET 1000 MG PO (16:20)
--- NOTE | 2021-04-12 17:00 | ADMGEN ---
This patient, Jatin Crockett, was admitted to 2nd Floor Room 211-1. Patient/family oriented to hospital policies and general routines including ID bracelet, bed and alarms, visiting hours, pain management, procedures, bathroom and other care routines, personal items, smoking policy, room service/diet, and visiting hours. Information on how to activate the Rapid Response Team has been discussed. Patient/Family are encouraged to report perceived risks to care and to ask questions if they do not understand what they are told or what they should do.
[2021-04-12] MEDS: FUROSEMIDE INJ 40 MG/4 ML VIAL IV PUSH (18:52)
[2021-04-12] MEDS: BENZONATATE 100 MG CAPSULE PO (18:52)
[2021-04-12] MEDS: FUROSEMIDE INJ 100 MG/10 ML VIAL 80 MG IV PUSH (18:53)
[2021-04-12] MEDS: SODIUM CHLORIDE 0.9% IV 1,000 ML 100 ML IV CONT (18:53)
--- NOTE | 2021-04-12 19:25 | PC.NURSE ---
Addendum entered by Frannie Sparks RN 04/12/21 23:06: Patient responded well, attempting to roll when asked. Patient was turned to the left side, and seemed to be resting comfortably. Original Note: Completed change of shift report with the day shift nurse. Patient is sleeping quietly in bed, with no signs of pain or discomfort. It was difficult to awaken the patient. The patient did not respond verbally to any questions, but did shake his head yes and no, after some time. Patient was very wet, including his bedding. Patient was cleaned up and changed. Patient responded well, attempting to tu
[2021-04-12 19:49] LABS: Troponin I 89.6 ng/L (0.00-60.4)
--- NOTE | 2021-04-12 19:53 | PC.NURSE ---
notified of current Troponin result of 89.6. No new orders.
[2021-04-12] MEDS: NIFEdipine 30 MG TAB.ER.24 60 MG PO (21:04)
[2021-04-12] MEDS: ATORVASTATIN 40 MG TABLET 80 MG PO (21:04)
[2021-04-12] MEDS: EZETIMIBE 10 MG TABLET PO (21:04)
[2021-04-12] MEDS: guaiFENesin 12 HR 600 MG TABCR 1200 MG PO (21:04)
[2021-04-12] MEDS: traZODone HCL 25 MG TABLET PO (21:04)
--- NOTE | 2021-04-12 22:15 | PC.NURSE ---
Completed patient rounding. Patient is sleeping quietly in bed, with no signs of pain or discomfort.
[2021-04-13] VITALS (11 sets, daily range): BP systolic 120–174; BP diastolic 74–111; PULSE 61–93; RESP 14–20; TEMP 36.4–37.3; O2SAT 95–100
--- NOTE | 2021-04-13 02:15 | PC.NURSE ---
Completed patient rounding. Patient is sleeping quietly in bed, with no signs of pain or discomfort.
[2021-04-13] MEDS: SODIUM CHLORIDE 0.9% IV 1,000 ML 100 ML IV CONT ×2 (05:33→17:56)
[2021-04-13 05:55] LABS: Basophils Absolute Auto 0.03 K/mm3 (0.00-0.10); Basophils Percent Auto 0.6 % (0.0-1.0); Eosinophils Absolute Auto 0.03 K/mm3 (0.02-0.50); Eosinophils Percent Auto 0.6 % (1.0-6.0); Hematocrit 39.5 % (40.0-54.0); Hemoglobin 13.3 g/dL (14.0-18.0); Immature Granulocyte Absolute 0.02 K/mm3 (0.00-0.00); Immature Granulocyte Percent A 0.4 % (0.0-0.0); Lymphocytes Absolute Auto 0.68 K/mm3 (1.10-4.50); Lymphocytes Percent Auto 13.7 % (18.0-42.0); Mean Corpuscular HGB Conc 33.7 g/dL (32.0-36.0); Mean Corpuscular Hemoglobin 29.8 pg (27.0-31.0); Mean Corpuscular Volume 88.6 fL (78.0-102.0); Mean Platelet Volume 9.7 fl (8.7-11.0); Monocytes Absolute Auto 0.63 K/mm3 (0.10-0.90); Monocytes Percent Auto 12.7 % (2.0-11.0); Neutrophils Absolute Auto 3.6 K/mm3 (1.7-7.2); Platelet Count Result 243 K/mm3 (150-420); Red Blood Count 4.46 M/mm3 (4.70-6.10); Red Cell Distribution Width 12.9 % (11.6-14.4)
[2021-04-13 06:17] LABS: Alanine Aminotransferase 18 U/L (16-63); Albumin Level 3.7 g/dL (3.4-5.0); Alkaline Phosphatase 88 U/L (46-116); Anion Gap 13 mmol/L (8-16); Aspartate Amino Transferase 18 U/L (15-37); Bilirubin,Total 0.5 mg/dL (0.00-1.00); Blood Urea Nitrogen 11 mg/dL (7-18); Calcium 8.8 mg/dL (8.5-10.1); Carbon Dioxide 29 mmol/L (21-32); Chloride 93 mmol/L (98-108); Estimated CRCL calculation 49 ml/min; Estimated Glomerular Filt Rate > 60; Glucose 97 mg/dL (70-99); Osmolality Calculated 279 mOsm/kg (285-295); Potassium 2.8 mmol/L (3.5-5.1); Sodium 135 mmol/L (136-145); Total Protein 7.5 g/dL (6.4-8.2)
[2021-04-13 06:28] LABS: Troponin I 88.7 ng/L (0.00-60.4)
[2021-04-13] MEDS: POTASSIUM CHLORIDE 20 MEQ TABLET 40 MEQ PO ×3 (07:56→16:48)
[2021-04-13] MEDS: METOPROLOL SUCCINATE EXT REL 25 MG TABCR PO (08:22)
[2021-04-13] MEDS: guaiFENesin 12 HR 600 MG TABCR 1200 MG PO ×2 (08:22→21:01)
[2021-04-13] MEDS: FUROSEMIDE INJ 40 MG/4 ML VIAL IV PUSH (08:23)
[2021-04-13] MEDS: PANTOPRAZOLE 40 MG TABLET PO (08:23)
[2021-04-13] MEDS: BENZONATATE 100 MG CAPSULE PO ×3 (08:23→16:47)
[2021-04-13 10:45] LABS: NT Pro B Type Natriuretic Pept 5573 pg/mL (0-125)
[2021-04-13] MEDS: cloNIDine HCL 0.1 MG TABLET PO (11:00)
[2021-04-13] MEDS: METOPROLOL SUCCINATE EXT REL 50 MG TABCR PO (11:00)
[2021-04-13] MEDS: cloNIDine HCL 0.1 MG TABLET (11:30)
[2021-04-13] MEDS: POTASSIUM CHLORIDE 20 MEQ TABLET 40 MEQ (11:30)
--- NOTE | 2021-04-13 12:13 | PM.IMHP ---
H&P: HPI History of Present Illness Date/Time: 04/13/21 12:13 this is a 60-year-old male who presented to urgent care with complaints of an elevated blood pressure reading per home health nurse. Patient has a past medical history of CAD, CVA with residual left-sided and hypertension. Patient also had cognitive impairment of the previous stroke. Patient is a poor historian. I was unable to get answers to my questions. While in ED patient did have a fever of 101.4 and was positive for COVID. Patient is not having any respiratory issues. 98.7, 84, 20, 97% on room air ,174/100, WBC 7.7, hemoglobin 12.6, hematocrit 37.4, platelets 268, sodium 131, potassium 3.1, BUN 14, creatinine 1.29, glucose 105, AST 12, ALT 16, troponin 89.6 BNP 5177, chest x-ray unremarkable EKG sinus rhythm with a heart rate of 90. Patient being admitted for COVID , elevated troponin and hypotension. The patient denies SOB, CP, palpitation, extremity numbness, lightheadedness, dizziness, constipation, diarrhea, chills, or fever. . <JOSE A Smyth - Last Filed: 04/13/21 13:24> Chief Complaint: Elevated blood pressure <JOSE A Smyth - Last Filed: 04/13/21 13:24> Review of Systems Review of Systems: A 14 organ system Review of Systems was performed and pertinent positives included in the HPI, otherwise remaining ROS is negative. <JOSE A Smyth - Last Filed: 04/13/21 13:24> [facility] Past Medical History Medical History: Medical History CAD (coronary artery disease) CVA (cerebral vascular accident) Hypertension <JOSE A Smyth - Last Filed: 04/13/21 13:24> Social History Social History: Social History Smoking status: Former smoker Second hand tobacco smoke exposure: Yes Alcohol intake: never Substance use: never Substance use type: does not use Gender identity (if verbalized by the patient): Male Spiritual care concerns: No <JOSE A Smyth - Last Filed: 04/13/21 13:24> Meds Home Medications and Allergies Home medications: Home Medications Medication Instructions Recorded Confirmed Type pantoprazole 40 mg PO DAILY 11/20/20 04/12/21 History metoprolol succinate 25 mg PO DAILY 12/07/20 04/12/21 History atorvastatin [Lipitor] 80 mg PO HS 02/28/21 04/12/21 History ezetimibe [Zetia] 10 mg PO HS 02/28/21 04/12/21 History nifedipine 60 mg PO HS 04/12/21 04/12/21 History <JOSE A Smyth - Last Filed: 04/13/21 13:24> Allergies/Adverse reactions: Allergies Allergy/AdvReac Type Severity Reaction Status Date / Time No Known Allergies Allergy Verified 04/12/21 14:16 <JOSE A Smyth - Last Filed: 04/13/21 13:24> Vital Signs Vital Signs - 24 hr 04/12/21 12:20 04/12/21 13:10 04/12/21 14:00 Temperature 101.3 F H Pulse Rate 94 88 87 Respiratory Rate 20 20 20 Blood Pressure 162/102 H 164/92 H 173/101 H Pulse Oximetry 98 98 98 04/12/21 14:13 04/12/21 15:00 04/12/21 15:30 Temperature Pulse Rate 86 87 82 Respiratory Rate 18 20 20 Blood Pressure 153/104 H 167/104 H Pulse Oximetry 96 98 98 04/12/21 16:00 04/12/21 17:07 04/12/21 18:00 Temperature 99.5 F 99.5 F Pulse Rate 86 80 Respiratory Rate 18 Blood Pressure 147/93 H Pulse Oximetry 96 04/12/21 20:00 04/13/21 00:00 04/13/21 04:00 Temperature 97.9 F 98.5 F 98.9 F Pulse Rate 63 82 86 Respiratory Rate 12 14 14 Blood Pressure 155/91 H 168/111 H 171/102 H Pulse Oximetry 96 99 95 04/13/21 06:38 04/13/21 08:00 04/13/21 08:22 Temperature 98.7 F Pulse Rate 83 84 84 Respiratory Rate 20 Blood Pressure 174/100 H Pulse Oximetry 97 04/13/21 11:00 Temperature Pulse Rate 93 Respiratory Rate Blood Pressure Pulse Oximetry <Kenan Terrazas, MACADAM RAKER-C - Last Filed: 04/13/21 13:24> Exam Narrative: GENERAL: This is a well-nourished,
--- NOTE | 2021-04-13 13:00 | PC.NURSE ---
Pt is in bed, will follow directions and commands but needs much instruction and guidance. Pt was able to feed self for breakfast but wanted to sleep through lunch and didn't eat well. A lozano cath was placed, pt incontinent of urine and soaking bed continuously. Pt is A&O x1. IVF infusing as per order.
[2021-04-13 16:00] LABS: Troponin I 91.8 ng/L (0.00-60.4)
[2021-04-13] MEDS: ENOXAPARIN 40 MG/0.4 ML SYRINGE SUB-Q (16:48)
[2021-04-13] MEDS: traZODone HCL 25 MG TABLET PO (21:00)
[2021-04-13] MEDS: EZETIMIBE 10 MG TABLET PO (21:01)
[2021-04-13] MEDS: ATORVASTATIN 40 MG TABLET 80 MG PO (21:01)
[2021-04-13] MEDS: NIFEdipine 30 MG TAB.ER.24 60 MG PO (21:02)
[2021-04-14] MEDS: SODIUM CHLORIDE 0.9% IV 1,000 ML 100 ML IV CONT ×2 (01:34→02:52)
[2021-04-14 03:20] VITALS: BP 140/72; PULSE 76; RESP 20; TEMP 36.2; O2SAT 94
[2021-04-14 06:00] VITALS: PULSE 56
[2021-04-14 07:05] LABS: Hemoglobin 11.7 g/dL (14.0-18.0); Mean Corpuscular HGB Conc 33.4 g/dL (32.0-36.0); Mean Corpuscular Hemoglobin 30.2 pg (27.0-31.0); Mean Corpuscular Volume 90.4 fL (78.0-102.0); Mean Platelet Volume 10.1 fl (8.7-11.0); Platelet Count Result 187 K/mm3 (150-420); Red Blood Count 3.87 M/mm3 (4.70-6.10); Red Cell Distribution Width 13.3 % (11.6-14.4); White Blood Count 4.8 K/mm3 (4.8-10.8)
[2021-04-14 07:25] LABS: Alanine Aminotransferase 14 U/L (16-63); Alkaline Phosphatase 72 U/L (46-116); Anion Gap 9 mmol/L (8-16); Aspartate Amino Transferase 13 U/L (15-37); Bilirubin,Total 0.4 mg/dL (0.00-1.00); Blood Urea Nitrogen 15 mg/dL (7-18); Calcium 8.2 mg/dL (8.5-10.1); Carbon Dioxide 28 mmol/L (21-32); Chloride 96 mmol/L (98-108); Estimated CRCL calculation 44 ml/min; Estimated Glomerular Filt Rate 59; Glucose 102 mg/dL (70-99); Magnesium 1.6 mg/dL (1.8-2.4); Osmolality Calculated 276 mOsm/kg (285-295); Potassium 3.7 mmol/L (3.5-5.1); Sodium 133 mmol/L (136-145); Total Protein 6.2 g/dL (6.4-8.2)
[2021-04-14 07:29] LABS: Troponin I 75.3 ng/L (0.00-60.4)
[2021-04-14 07:45] VITALS: BP 164/90; PULSE 70; RESP 18; TEMP 37.2; O2SAT 98
--- NOTE | 2021-04-14 09:03 | WPDPN ---
Progress Note: A&P Assessment and Plan (1) Elevated troponin: Code(s): R77.8 - Other specified abnormalities of plasma proteins Status: Acute Assessment and Plan: Sinus rhythm with a heart rate of 90 Continue telemetry trop89.6> 89.6>88.7 we will continue to monitor. Currently trending down. If troponins worsen will speak with the head of merchandise buying and attempted transfer for consult Denies any chest pain, no radicular component (2) Acute hypokalemia: Code(s): E87.6 - Hypokalemia Status: Acute Assessment and Plan: Potassium 3.1>2.8 Continue supplements which is 40 meq daily daily additional 40 meq (3) COVID-19: Code(s): U07.1 - COVID-19 Status: Acute Assessment and Plan: Tested positive for COVID Patient lengthening respiratory deficiency no medication needed for 3 (4) Hypertension: Code(s): I10 - Essential (primary) hypertension Status: Acute Assessment and Plan: Blood pressure 144/100 Increase metoprolol from 25mg to 50 mg, Nifedipine mg Vital signs as ordered Will adjust medication as needed (5) CVA (cerebral vascular accident): Code(s): I63.9 - Cerebral infarction, unspecified Status: Acute Assessment and Plan: Patient with cognitive deficiencies been left side CVA with visual (6) CAD (coronary artery disease): Code(s): I25.10 - Atherosclerotic heart disease of [place] coronary artery without angina pectoris Status: Acute Assessment and Plan: Continue atorvastatin (7) Elevated brain natriuretic peptide (BNP) level: Code(s): R79.89 - Other specified abnormal findings of blood chemistry Status: Acute Assessment and Plan: No history of congestive heart BNP 5573 Echo pending Patient with Lasix 40 mg twice daily Subjective Date/time seen: 04/14/21 09:03 Exam Narrative: GENERAL: This is a well-nourished, well-developed patient, flat affect, in no apparent distress. HEAD: normocephalic, atraumatic. EYES: PERRL. Sclera clear/white. Vision is grossly intact. EARS: External ears normal, auditory canals clear and without drainage, TMs normal without perforation. Hearing grossly intact. NOSE: External nose normal with no obvious nasal discharge, nares without redness, no rhinorrhea. THROAT: Mucous membranes moist, posterior pharynx clear. NECK: Neck supple, non-tender without lymphadenopathy, masses or thyromegaly. CARDIOVASCULAR: Regular rate and rhythm without murmurs, gallops, or rubs. RESPIRATORY: Clear to auscultation. Breath sounds equal bilaterally. No wheezes, rales, or rhonchi. GASTROINTESTINAL: Abdomen soft, non-tender, nondistended. Bowel sounds are active. No hepato-splenomegaly, or palpable masses. No guarding. SKIN: warm, intact with no suspicious lesions or rash, good texture and turgor. NEURO: awake, alert, and oriented to person, place and time. Appears to be neurologic abnormalities. Slow response. Possibly residual from CVA EXTREMITIES: Left-sided residual from CVA no edema. No calf tenderness. Negative Homans sign bilaterally. BACK: Nontender without deformity or crepitance. No flank tenderness. Objective Data Vital Signs Vital Signs: Vital Signs - 24 hr 04/13/21 11:00 04/13/21 12:00 04/13/21 16:00 Temperature 97.6 F 98.8 F Pulse Rate 93 77 63 Respiratory Rate 20 16 Blood Pressure 144/100 H 126/85 Pulse Oximetry 96 97 04/13/21 18:00 04/13/21 20:00 04/13/21 23:54 Temperature 98.1 F 99.1 F Pulse Rate 61 63 74 Respiratory Rate 18 20 Blood Pressure 120/74 150/74 H Pulse Oximetry 100 96 04/14/21 03:20 04/14/21 06:00 Temperature 97.2 F L Pulse Rate 76 56 L Respiratory Rate 20 Blood Pressure 140/72 Pulse Oximetry 94 Intake/Output Intake/Output: Intake & Output 04/11/21 04/12/21 04/13/21 04/14/21 23:59 23:59 23:59 23:59 Intake Total 1870 3000 1093.333 Output Total 250 200 Balance 1870 2750 893.333 Meds/Re
[2021-04-14 09:26] LABS: NT Pro B Type Natriuretic Pept 2191 pg/mL (0-125)
[2021-04-14] MEDS: POTASSIUM CHLORIDE 20 MEQ TABLET 40 MEQ PO (10:07)
[2021-04-14 10:08] VITALS: PULSE 70
[2021-04-14] MEDS: guaiFENesin 12 HR 600 MG TABCR 1200 MG PO (10:08)
[2021-04-14] MEDS: PANTOPRAZOLE 40 MG TABLET PO (10:08)
[2021-04-14] MEDS: METOPROLOL SUCCINATE EXT REL 50 MG TABCR PO (10:08)
[2021-04-14] MEDS: BENZONATATE 100 MG CAPSULE PO ×2 (10:09→14:00)
[2021-04-14] MEDS: MAGNESIUM OXIDE 400 MG TABLET PO (10:12)
[2021-04-14 12:20] VITALS: BP 167/97; PULSE 68; RESP 18; TEMP 37.4; O2SAT 96
--- NOTE | 2021-04-14 14:48 | PM.DS ---
DS: Admitting Diagnosis Discharge Date 04/14/2021 Admitting Diagnosis covid, hypertension DS: Discharge Diagnosis Discharge Diagnosis (1) Elevated troponin: Code(s): R77.8 - Other specified abnormalities of plasma proteins Status: Acute Assessment and Plan: Possibly secondary to heart Sinus rhythm with a heart rate of 90 Continue telemetry trop89.6> 89.6>88.7 >91.8>75.3 Denies any chest pain, no radicular component (2) Acute hypokalemia: Code(s): E87.6 - Hypokalemia Status: Acute Assessment and Plan: Potassium 3.1>2.8>wnl Will discharge with 15 days Continue supplements which is 40 meq daily daily additional 40 meq (3) COVID-19: Code(s): U07.1 - COVID-19 Status: Acute Assessment and Plan: Tested positive for COVID Patient denies Respiratory deficiency no medication needed (4) Hypertension: Code(s): I10 - Essential (primary) hypertension Status: Acute Assessment and Plan: Blood pressure 167/97 Increase metoprolol from 25mg to 50 mg, Nifedipine 60 mg Instructed to take blood pressure readings daily and give results to primary care physician for follow-up on medication (5) CVA (cerebral vascular accident): Code(s): I63.9 - Cerebral infarction, unspecified Status: Acute Assessment and Plan: Patient with cognitive deficiencies been left side CVA with visual (6) CAD (coronary artery disease): Code(s): I25.10 - Atherosclerotic heart disease of [place] coronary artery without angina pectoris Status: Acute Assessment and Plan: Continue atorvastatin (7) Elevated brain natriuretic peptide (BNP) level: Code(s): R79.89 - Other specified abnormal findings of blood chemistry Status: Acute Assessment and Plan: No history of congestive heart BNP 5573>2191 improving Echo is outpatient Will discharge with Lasix 40 mg twice daily DS: Summary Hospital Course Hospital Course: this is a 60-year-old male who presented to urgent care with complaints of an elevated blood pressure reading per home health nurse. Patient has a past medical history of CAD, CVA with residual left-sided and hypertension. Patient also had cognitive impairment of the previous stroke. Patient is a poor historian. I was unable to get answers to my questions. While in ED patient did have a fever of 101.4 and was positive for COVID. Patient is not having any respiratory issues. Patient has not had any more fever since his admission and his blood pressure is better controlled. Patient will discharge today denies any chest pain, shortness of breath, palpitation, extremity numbness, lightheadedness, dizziness, constipation, diarrhea, chills, or fever. Patient will follow up with a echo Time Spent with Patient Time attestation: Total time spent providing and/or coordinating discharge services: Exam Narrative: GENERAL: This is a well-nourished, well-developed patient, flat affect, in no apparent distress. HEAD: normocephalic, atraumatic. EYES: PERRL. Sclera clear/white. Vision is grossly intact. EARS: External ears normal, auditory canals clear and without drainage, TMs normal without perforation. Hearing grossly intact. NOSE: External nose normal with no obvious nasal discharge, nares without redness, no rhinorrhea. THROAT: Mucous membranes moist, posterior pharynx clear. NECK: Neck supple, non-tender without lymphadenopathy, masses or thyromegaly. CARDIOVASCULAR: Regular rate and rhythm without murmurs, gallops, or rubs. RESPIRATORY: Clear to auscultation. Breath sounds equal bilaterally. No wheezes, rales, or rhonchi. GASTROINTESTINAL: Abdomen soft, non-tender, nondistended. Bowel sounds are active. No hepato-splenomegaly, or palpable masses. No guarding. SKIN: warm, intact with no suspicious lesions or rash, good texture and turgor. NEURO: awake, alert, and oriented to person, place and time. Appears to be neurologic abnor
[2021-04-14 15:25] VITALS: BP 165/92; PULSE 70; RESP 18; TEMP 37.3; O2SAT 97
--- NOTE | 2021-04-14 15:45 | PC.NURSE ---
Son Russ called and notified about patient discharging. States he will call his mom and sister about transport home for patient.
--- NOTE | 2021-04-14 17:35 | PC.NURSE ---
IV site removed, tip intact, dressing applied to site. Patient tolerated well. Lozano catheter removed, patient tolerated well. Patient voided x1 after lozano cath discontinued. Paper scrubs applied for patient to be transported home in. Patients family member here to pick pt. up. Patient transferred from bed to wheelchair with contact guard x1 assist. All belongings gathered together to be sent home with patient, medications returned and sent home with patient. Patient accompanied to front door via wheelchair by this nurse. Patient left via private vehicle with family.
--- NOTE | 2021-04-14 17:35 | PC.NURSE ---
[facility] health faxed discharged summary and message left with section cutter nurse about patient discharging home.
--- NOTE | 2021-04-18 10:37 | PC.NURSE ---
Pt's son states he received and understood the discharge instructions. Son has no other comments.
== END 2021-04-14 17:25 | disposition home health service (06) ==
LOC: CHSED 14:10 → CHS2ND 15:57
PROVIDERS: Nurse Practitioner; Admitting Provider Emergency Medicine; Emergency Provider Emergency Medicine; PCP Internal Medicine; Visit Provider Emergency Medicine
DX: U07.1 COVID-19 (principal); R78.81 Bacteremia; R77.8 Other specified abnormalities of plasma proteins; E87.6 Hypokalemia; I10 Essential (primary) hypertension; I69.319 Unspecified symptoms and signs involving cognitive functions following cerebral infarction; I25.10 Atherosclerotic heart disease of native coronary artery without angina pectoris; R79.89 Other specified abnormal findings of blood chemistry
CPT/HCPCS: 36415; 71045; 80053; 83605; 83735; 83880; 84484; 85025; 85027; 85610; 85730; 86140; 87040; 87147; 87186; 93005; 96361; 96365; 96366; 96372; 96375; 96376; 99285; A9270; C9803; G0378; J1650; J1940; J3480; J7030; J7040; U0003; U0005

== ENCOUNTER 2021-06-15 17:42 | Inpatient (IN) | payer OTHER, SELFPAY ==
[2021-06-15] VITALS (8 sets, daily range): BP systolic 130–196; BP diastolic 84–120; PULSE 90–108; RESP 18–24; TEMP 36.8–37.2; O2SAT 94–99
--- NOTE | ~2021-06-15 | CT_ITS ---
EXAMINATION: CT abdomen pelvis w con DATE: 06/15/2021 19:53 INDICATION: Generalized abdominal pain TECHNIQUE: Computed tomography (CT) of the abdomen and pelvis was performed with 100 CC Omnipaque 350 intravenous contrast. Automated exposure control and iterative reconstruction technique were employe d. Exam dose: 425.09 mGy-cm total exam DLP. COMPARISON: 12/07/2019 CTA chest abdomen pelvis FINDINGS: There is cardiomegaly. Coronary artery calcification. No pericardial effusion. There is prominent infiltrate/atelectasis in the right lower lobe and mild right pleural effusion. There is mild dependent left lower lobe atelectasis, minimal left pleural effusion. There is a stable approximately 1.2 cm hypoenhancing lesion of the hepatic dome since 12/04/2019; no ot her hepatic space-occupying mass lesion is evident. The gallbladder is present. No gallbladder wall thickening or pericholecystic fat stranding or fluid. No bile duct or pancreatic duct dilatation. No pancreatic mass lesion or calcification. Normal splenic size. Normal morphology of the adrenal glands. There is prominent diffuse left renal atrophy. No urinary tract calculus or hydroureteronephrosis. Endovascular stent is noted in the distal abdominal aorta and right common iliac and left common and very proximal external iliac arteries. No intraperitoneal or retroperitoneal or pelvic mass lesion or adenopathy or ascites. Prostate enlargement. The urinary bladder is unremarkable. Minimal colonic diverticulosis; no CT evidence of diverticulitis. No bowel obstruction or intraperito bebo free air is detected. Moderately severe degenerative disease at L5-S1. Bilateral hip osteoarthritis. No suspicious osteolyt ic or osteoblastic lesions. IMPRESSION: Right lower lobe and minimal left lower lobe atelectasis/infiltrate Mild right and minimal left pleural effusion Cardiomegaly, coronary atherosclerosis 1.2 cm nonspecific hepatic dome hypoattenuating lesion, stable since 12/04/2019 and therefore likely be nign Diffuse left renal atrophy Minimal diverticulosis of the colon Aortobiiliac endovascular stent Cardiomegaly Reviewed, dictated and finalized at [facility] Reviewed, dictated and finalized at [facility]. IMPRESSION: Right lower lobe and minimal left lower lobe atelectasis/infiltrat e Mild right and minimal left pleural effusion Cardiomegaly, coronary atherosclerosis 1.2 cm nonspecific hepatic dome hypoattenuating lesion, stable since 12/04/2019 a nd therefore likely benign Diffuse left renal atrophy Minimal diverticulosis of the colon Aortobiiliac endovascular stent Cardiomegaly
--- NOTE | ~2021-06-15 | XR_ITS ---
XR chest 1V portable DATE: 06/15/2021 19:53 INDICATION: Altered mental status. Weakness. TECHNIQUE: Portable AP chest on 06/15/2021 at 1945 hours COMPARISON: 04/12/2021 portable AP chest at 1352 hours FINDINGS: An implanted campus monitor device overlies the left chest. Cardiomegaly. Aortic arch calc ification and mild unfolding. There is prominence of the minor fissure suggesting subpleural edema. There is pulmonary vascular con gestion and redistribution. There are mild bilateral primarily central and lower lung infiltrates sug gesting mild pulmonary edema. Pneumonia is not excluded. Very small pleural effusions are suggested. No pneumothorax. Osteopenia. IMPRESSION: Mild congestive heart failure, new since 04/12/2021 Reviewed, dictated and finalized at [facility].
--- NOTE | 2021-06-15 17:51 | ED.AMS ---
HPI - Altered Mental Status General Chief Complaint: Altered Mental Status Stated Complaint: amb Time Seen by Provider: 06/15/21 17:51 Source: patient, family ( Nurse spoke with caregiver on the phone an ex-) and RN notes reviewed Mode of arrival: EMS Limitations: altered mental status History of Present Illness HPI narrative: Nurse was able to speak to the caregiver who says the patient has had altered mental status for a little over 2 days. Today he crawled under the bed and would not come out for 2 hours. She was finally able to coax amount. Says that he is just not acting right. Apparently recently he had been taken off all of his medications and is signed DNR papers. He has not been evaluated by hospice as yet. MD complaint: altered mental status Onset (ago): day(s) (2) Timing confirmed by: caregiver Severity: moderate Consistency of symptoms: waxing and waning Associated symptoms: denies other symptoms Related Data Home Medications Medication Instructions Recorded Confirmed No Home Medications 06/15/21 06/15/21 Allergies Allergy/AdvReac Type Severity Reaction Status Date / Time No Known Allergies Allergy Verified 06/15/21 19:15 Review of Systems Review of Systems: All systems reviewed & are unremarkable except as noted in HPI and below Constitutional: Constitutional: Denies chills and Denies fever(s) PMFSH Past Medical History Medical History CAD (coronary artery disease) CVA (cerebral vascular accident) Hypertension Social History Social History Smoking status: Former smoker Second hand tobacco smoke exposure: Yes Alcohol intake: unknown Substance use: unknown Substance use type: unknown Gender identity (if verbalized by the patient): Male Spiritual care concerns: No Exam Const: General: no acute distress, alert and ill appearing chronically Nutritional Appearance: well nourished HENMT: Head: normal to inspection Ears: external ears normal Face and sinus: normal facial exam Mouth: Yes dry mucous membranes Eyes: Conjunctivae: conjunctivae normal Pupils: Equal, round and reactive pupils present EOM: EOMs intact bilaterally Neck: Neck: normal visual inspection Chest: Chest palpation & inspection: normal inspection of the chest Resp: Effort & Inspection: normal respiratory effort Auscultation: clear to auscultation bilaterally Cardio: Rate: tachycardic Rhythm: regular rhythm GI: GI Palp: Yes Soft to palpation, Yes Tenderness to palpation present (GI) and Yes Guarding due to palpation present (GI) Auscultation: normal bowel sounds Back/Spine/Pelvis: Cervical Spine: pain with cervical ROM Skin: General skin exam: mottling and turgor decreased Course Course Emergency Course: I discussed the case with Derek Bui APN who agreed with admission. Consultations Consultation #1: Derek Bui Date: 06/15/21 Time: 20:49 Vital Signs Vital signs: Vital Signs Temperature 36.8 C 06/15/21 17:42 Pulse Rate 102 H 06/15/21 17:42 Respiratory Rate 20 06/15/21 17:42 Blood Pressure 196/120 H 06/15/21 17:42 Pulse Oximetry 95 06/15/21 17:42 Temperature 37.2 C 06/15/21 22:28 Pulse Rate 92 06/15/21 22:36 Respiratory Rate 18 06/15/21 22:36 Blood Pressure 130/88 06/15/21 22:28 Pulse Oximetry 97 06/15/21 22:36 MDM - Altered Mental Status Lab Data Result diagrams: 06/15/21 18:11 06/15/21 18:11 Labs: Lab Results 06/15/21 06/15/21 06/15/21 Range/Units 18:10 18:11 18:11 WBC 13.3 H (4.8-10.8) K/mm3 RBC 4.90 (4.70-6.10) M/mm3 Hgb 14.7 (14.0-18.0) g/dL Hct 44.7 (40.0-54.0) % MCV 91.2 (78.0-102.0) fL MCH 30.0 (27.0-31.0) pg MCHC 32.9 (32.0-36.0) g/dL RDW 13.7 (11.6-14.4) % Plt Count 282 (150-420) K/mm3 MPV 11.2 H (8.7-11.0) fl Immature Gran %
[2021-06-15] MEDS: cloNIDine HCL 0.2 MG TABLET 0.3 MG PO (18:09)
[2021-06-15 18:24] LABS: Basophils Absolute Auto 0.03 K/mm3 (0.00-0.10); Basophils Percent Auto 0.2 % (0.0-1.0); Eosinophils Absolute Auto 0.01 K/mm3 (0.02-0.50); Eosinophils Percent Auto 0.1 % (1.0-6.0); Hematocrit 44.7 % (40.0-54.0); Hemoglobin 14.7 g/dL (14.0-18.0); Immature Granulocyte Absolute 0.07 K/mm3 (0.00-0.00); Immature Granulocyte Percent A 0.5 % (0.0-0.0); Lymphocytes Absolute Auto 0.94 K/mm3 (1.10-4.50); Lymphocytes Percent Auto 7.1 % (18.0-42.0); Mean Corpuscular HGB Conc 32.9 g/dL (32.0-36.0); Mean Corpuscular Volume 91.2 fL (78.0-102.0); Mean Platelet Volume 11.2 fl (8.7-11.0); Monocytes Percent Auto 6.8 % (2.0-11.0); Neutrophils Absolute Auto 11.3 K/mm3 (1.7-7.2); Neutrophils Percent Auto 85.3 % (50.0-70.0); Platelet Count Result 282 K/mm3 (150-420); Red Cell Distribution Width 13.7 % (11.6-14.4); White Blood Count 13.3 K/mm3 (4.8-10.8)
[2021-06-15 18:44] LABS: Alanine Aminotransferase 50 U/L (16-63); Albumin Level 3.4 g/dL (3.4-5.0); Alkaline Phosphatase 94 U/L (46-116); Anion Gap 11 mmol/L (8-16); Aspartate Amino Transferase 37 U/L (15-37); Bilirubin,Total 1.4 mg/dL (0.00-1.00); Blood Urea Nitrogen 16 mg/dL (7-18); Carbon Dioxide 27 mmol/L (21-32); Chloride 92 mmol/L (98-108); Estimated CRCL calculation 47 ml/min; Estimated Glomerular Filt Rate 59; Glucose 134 mg/dL (70-99); Magnesium 1.9 mg/dL (1.8-2.4); Osmolality Calculated 273 mOsm/kg (285-295); Potassium 3.8 mmol/L (3.5-5.1); Sodium 130 mmol/L (136-145); Total Protein 8.4 g/dL (6.4-8.2)
[2021-06-15 18:45] LABS: CRP > 25.0 mg/dL (0.0-0.9)
[2021-06-15] MEDS: LACTATED RINGERS 1,000 ML 999 ML IV CONT (18:45)
[2021-06-15 18:48] LABS: Lactic Acid Reflex 2.4 mmol/L (0.4-2.0)
[2021-06-15 19:09] LABS: Add Urine Microscopic? YES; Appearance Urine Clear (Clear); Bilirubin Urine 1+ (Negative); Blood Urine 1+ (Negative); Color Urine Yellow (Yellow); Glucose Urine UA Negative (Negative); Ketones Urine Trace (Negative); Leukocyte Esterase Ur Negative LEU/UL (Negative); Nitrate Urine Negative (Negative); Protein Urine 2+ (Negative); Specific Grav Ur 1.025 (1.010-1.020)
[2021-06-15 19:18] LABS: Bacteria Urine Trace /hpf; RBC Urine 0-2 /hpf (0-2); Squamous Epithelial Cell Urine Rare /hpf (Few); WBC Urine 0-3 /hpf (0-3)
[2021-06-15 19:46] LABS: SARS-CoV-2 RNA PCR Negative (Negative)
[2021-06-15 20:04] LABS: NT Pro B Type Natriuretic Pept > 35000 pg/mL (0-125)
[2021-06-15 21:19] LABS: Reflex Lactic Acid Yes or No Add Lactic
[2021-06-15] MEDS: FUROSEMIDE INJ 40 MG/4 ML VIAL 60 MG IV PUSH (21:47)
[2021-06-15 21:59] LABS: Lactic Acid 1.4 mmol/L (0.4-2.0)
--- NOTE | 2021-06-15 22:27 | PC.NURSE ---
pt transferred to floor with iv levoquin in progress
[2021-06-15] MEDS: LEVALBUTEROL NEB 1.25 MG/3 ML INHALATION (22:33)
--- NOTE | 2021-06-15 23:21 | ADMGEN ---
This patient, Jatin Crockett, was admitted to 2nd Floor Room 207-2. Patient oriented to hospital policies and general routines including ID bracelet, bed and alarms, visiting hours, pain management, procedures, bathroom and other care routines, personal items, smoking policy, room service/diet, and visiting hours. Information on how to activate the Rapid Response Team has been discussed. Patient are encouraged to report perceived risks to care and to ask questions if they do not understand what they are told or what they should do. Patient answers yes/no questions but not always appropriately and then when some questions are asked he just doesn't say anything. Patient doesn't make eye contact and does not follow directions. Unable to do admission questions due to patient unable to answer.
[2021-06-16] VITALS (12 sets, daily range): BP systolic 124–172; BP diastolic 89–107; PULSE 90–108; RESP 16–20; TEMP 36.9–38.1; O2SAT 92–100; BMI 16.5
--- NOTE | 2021-06-16 02:21 | PC.NURSE ---
1x 1.5cm healing scabbed area noted to left knee. Peripheral tissue pink.
[2021-06-16 05:05] LABS: Basophils Absolute Auto 0.03 K/mm3 (0.00-0.10); Basophils Percent Auto 0.2 % (0.0-1.0); Eosinophils Absolute Auto 0.01 K/mm3 (0.02-0.50); Eosinophils Percent Auto 0.1 % (1.0-6.0); Hematocrit 33.8 % (40.0-54.0); Immature Granulocyte Absolute 0.07 K/mm3 (0.00-0.00); Immature Granulocyte Percent A 0.5 % (0.0-0.0); Lymphocytes Absolute Auto 1.34 K/mm3 (1.10-4.50); Lymphocytes Percent Auto 9.7 % (18.0-42.0); Mean Corpuscular HGB Conc 32.5 g/dL (32.0-36.0); Mean Corpuscular Hemoglobin 29.1 pg (27.0-31.0); Mean Corpuscular Volume 89.4 fL (78.0-102.0); Mean Platelet Volume 11.1 fl (8.7-11.0); Monocytes Absolute Auto 1.37 K/mm3 (0.10-0.90); Monocytes Percent Auto 9.9 % (2.0-11.0); Neutrophils Percent Auto 79.6 % (50.0-70.0); Platelet Count Result 229 K/mm3 (150-420); Red Blood Count 3.78 M/mm3 (4.70-6.10); Red Cell Distribution Width 13.7 % (11.6-14.4); White Blood Count 13.8 K/mm3 (4.8-10.8)
[2021-06-16 05:26] LABS: Anion Gap 11 mmol/L (8-16); Blood Urea Nitrogen 16 mg/dL (7-18); Calcium 8.6 mg/dL (8.5-10.1); Carbon Dioxide 26 mmol/L (21-32); Chloride 95 mmol/L (98-108); Estimated CRCL calculation 44 ml/min; Estimated Glomerular Filt Rate > 60; Glucose 118 mg/dL (70-99); Magnesium 1.3 mg/dL (1.8-2.4); Osmolality Calculated 276 mOsm/kg (285-295); Potassium 3.1 mmol/L (3.5-5.1); Sodium 132 mmol/L (136-145)
[2021-06-16] MEDS: LEVALBUTEROL NEB 1.25 MG/3 ML INHALATION ×3 (06:05→22:17)
[2021-06-16] MEDS: ENOXAPARIN 40 MG/0.4 ML SYRINGE SUB-Q (08:13)
[2021-06-16] MEDS: FUROSEMIDE INJ 40 MG/4 ML VIAL IV PUSH (08:13)
[2021-06-16] MEDS: PANTOPRAZOLE SODIUM IV 40 MG VIAL IV PUSH (08:13)
[2021-06-16] MEDS: POTASSIUM CHLORIDE 20 MEQ TABLET PO ×2 (08:14→16:51)
--- NOTE | 2021-06-16 09:20 | PM.IMHP ---
H&P: HPI History of Present Illness Date/Time: 06/16/21 09:20This is a 60 year old that was brought in via EMS with alter mental status and was found to be hypertensive. Patient has a past medical history of hypertension, Hyperlipidemia, GERD, congestive heart failure stroke, mental status impairment since stroke. Patient was found to be hyponatremic, hypokalemic, Elevated BNP, Elevated WBC. patient was discharged from the hospital on 03/2021 Called the pharmacy due to no medication was reported for home medication . Patient is mainly nonverbal after review of patient previous history he was discharge on Nifedipine po daily, Potassium 20 meq daily, Metoprolol 50 mg daily, Lasix 40mg daily, Protonix 40 mg daily, Atorvastatin 40 mg daily and Zetia 10 mg daily Call placed to the Pharmacy to confirm medication and was informed that patient has not picked up medication since 01/2021 unsure if there is another pharmacy due to patient is nonverbal at this time and unable to inform me. What I have read patient is being taken care of by his ex at home. While in the emergency room patient had a WBC 13.3 -HGB 11.7, NA 130, LACTIC 2.4, C- REACTIVE>25.0, BNP>27397, URINE 2+ PROTEIN, TRACE KETONE, 1+ BLOOD, 1+ BILI . I HAVE started patient on IV antibiotic of Levaquin and Flagyl with some IV lasix will monitor labs and continue to treat infection with diuress. Chief Complaint: Alter mental status Review of Systems Review of Systems: change in mental status, confusion , hypertension, PMFSH Past Medical History Medical History CAD (coronary artery disease) CVA (cerebral vascular accident) Hypertension Social History Social History Smoking status: Former smoker Second hand tobacco smoke exposure: Yes Additional smoking assessment comments: unknown Alcohol intake: unknown Substance use: unknown Substance use type: unknown Gender identity (if verbalized by the patient): Male Spiritual care concerns: No Meds Home Medications and Allergies Home Medications Medication Instructions Recorded Confirmed Type No Home Medications 06/15/21 06/15/21 History Allergies Allergy/AdvReac Type Severity Reaction Status Date / Time No Known Allergies Allergy Verified 06/15/21 19:15 Vital Signs Vital Signs - 24 hr 06/15/21 17:42 06/15/21 18:10 06/15/21 18:40 Temperature 98.3 F Pulse Rate 102 H 108 H 104 H Respiratory Rate 20 18 18 Blood Pressure 196/120 H 186/118 H 180/107 H Pulse Oximetry 95 95 95 06/15/21 19:35 06/15/21 22:20 06/15/21 22:28 Temperature 98.9 F 99 F Pulse Rate 90 90 Respiratory Rate 24 H 20 Blood Pressure 141/84 H 146/91 H 130/88 Pulse Oximetry 94 99 06/15/21 22:33 06/15/21 22:36 06/16/21 00:00 Temperature 98.5 F Pulse Rate 92 92 90 Respiratory Rate 18 18 20 Blood Pressure 124/89 Pulse Oximetry 98 97 100 06/16/21 04:00 06/16/21 08:00 Temperature 98.7 F 99.5 F Pulse Rate 92 94 Respiratory Rate 20 18 Blood Pressure 139/94 H 144/90 H Pulse Oximetry 94 97 Exam Narrative: GENERAL: This is a ILL patient, flat affect, in no apparent distress. HEAD: normocephalic, atraumatic. EYES: PERRL. Sclera clear/white. left eye is closed and he does not open. EARS: External ears normal, auditory canals clear and without drainage, TMs normal without perforation. Hearing grossly intact. NOSE: External nose normal with no obvious nasal discharge, nares without redness, no rhinorrhea. THROAT: Mucous membranes moist, posterior pharynx clear. NECK: Neck supple, non-tender without lymphadenopathy, masses or thyromegaly. CARDIOVASCULAR: Regular rate and rhythm RESPIRATORY: Clear to diminished auscultation. Breath sounds equal bilaterally. No wheezes, rales, or rhonchi. GASTROINTESTINAL: Abdomen soft, non-tender, nondistended. Bowel sounds are active. No hepato-splenomegaly, or
[2021-06-16] MEDS: MELATONIN 3 MG TABLET PO (20:42)
[2021-06-16] MEDS: IBUPROFEN 400 MG TABLET PO (21:08)
[2021-06-16] MEDS: METOPROLOL SUCCINATE EXT REL 50 MG TABCR PO (21:09)
[2021-06-16] MEDS: ACETAMINOPHEN 325 MG TABLET 650 MG PO (23:25)
[2021-06-17] VITALS (15 sets, daily range): BP systolic 122–167; BP diastolic 67–101; PULSE 67–97; RESP 16–20; TEMP 36.4–37.4; O2SAT 95–100
[2021-06-17 00:40] LABS: Influenza A QL RT-PCR Negative (Negative); Influenza B QL RT-PCR Negative (Negative)
[2021-06-17 05:08] LABS: Hematocrit 31.5 % (40.0-54.0); Hemoglobin 10.3 g/dL (14.0-18.0); Mean Corpuscular HGB Conc 32.7 g/dL (32.0-36.0); Mean Corpuscular Hemoglobin 29.8 pg (27.0-31.0); Mean Platelet Volume 11.1 fl (8.7-11.0); Platelet Count Result 228 K/mm3 (150-420); Red Blood Count 3.46 M/mm3 (4.70-6.10); Red Cell Distribution Width 13.9 % (11.6-14.4); White Blood Count 11.8 K/mm3 (4.8-10.8)
[2021-06-17 05:16] LABS: Anion Gap 10 mmol/L (8-16); Blood Urea Nitrogen 28 mg/dL (7-18); Calcium 8.7 mg/dL (8.5-10.1); Carbon Dioxide 29 mmol/L (21-32); Chloride 94 mmol/L (98-108); Estimated CRCL calculation 33 ml/min; Estimated Glomerular Filt Rate 44; Glucose 84 mg/dL (70-99); Osmolality Calculated 280 mOsm/kg (285-295); Potassium 3.5 mmol/L (3.5-5.1); Sodium 133 mmol/L (136-145)
[2021-06-17] MEDS: LEVALBUTEROL NEB 1.25 MG/3 ML INHALATION ×3 (07:22→22:36)
[2021-06-17] MEDS: POTASSIUM CHLORIDE 20 MEQ TABLET PO ×2 (08:16→17:04)
[2021-06-17] MEDS: ATORVASTATIN 40 MG TABLET PO (08:16)
[2021-06-17] MEDS: METOPROLOL SUCCINATE EXT REL 50 MG TABCR PO (08:16)
[2021-06-17] MEDS: PANTOPRAZOLE SODIUM IV 40 MG VIAL IV PUSH (08:16)
[2021-06-17] MEDS: ENOXAPARIN 40 MG/0.4 ML SYRINGE SUB-Q (08:16)
[2021-06-17] MEDS: FUROSEMIDE INJ 40 MG/4 ML VIAL IV PUSH (08:16)
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
[2021-06-17] MEDS: MELATONIN 3 MG TABLET PO (21:17)
[2021-06-18] VITALS (13 sets, daily range): BP systolic 128–161; BP diastolic 84–107; PULSE 53–99; RESP 14–20; TEMP 36.6–37.4; O2SAT 92–98
[2021-06-18] MEDS: LEVALBUTEROL NEB 1.25 MG/3 ML INHALATION ×3 (06:25→21:40)
[2021-06-18] MEDS: POTASSIUM CHLORIDE 20 MEQ TABLET PO ×2 (08:19→17:13)
[2021-06-18] MEDS: METOPROLOL SUCCINATE EXT REL 50 MG TABCR PO (09:20)
[2021-06-18] MEDS: ATORVASTATIN 40 MG TABLET PO (09:20)
[2021-06-18] MEDS: NIFEdipine 30 MG TAB.ER.24 PO (09:20)
[2021-06-18] MEDS: ENOXAPARIN 40 MG/0.4 ML SYRINGE SUB-Q (09:20)
[2021-06-18] MEDS: FUROSEMIDE INJ 40 MG/4 ML VIAL IV PUSH (09:21)
[2021-06-18] MEDS: PANTOPRAZOLE SODIUM IV 40 MG VIAL IV PUSH (09:21)
[2021-06-18 09:26] LABS: Hematocrit 29.7 % (40.0-54.0); Hemoglobin 9.8 g/dL (14.0-18.0); Mean Corpuscular Hemoglobin 29.9 pg (27.0-31.0); Mean Corpuscular Volume 90.5 fL (78.0-102.0); Mean Platelet Volume 11.1 fl (8.7-11.0); Platelet Count Result 260 K/mm3 (150-420); Red Blood Count 3.28 M/mm3 (4.70-6.10); Red Cell Distribution Width 14.1 % (11.6-14.4); White Blood Count 9.6 K/mm3 (4.8-10.8)
[2021-06-18 09:41] LABS: Anion Gap 8 mmol/L (8-16); Blood Urea Nitrogen 18 mg/dL (7-18); Calcium 8.6 mg/dL (8.5-10.1); Carbon Dioxide 29 mmol/L (21-32); Chloride 91 mmol/L (98-108); Estimated CRCL calculation 38 ml/min; Estimated Glomerular Filt Rate 52; Glucose 186 mg/dL (70-99); Osmolality Calculated 272 mOsm/kg (285-295); Potassium 3.3 mmol/L (3.5-5.1); Sodium 128 mmol/L (136-145)
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
[2021-06-18] MEDS: SODIUM CHLORIDE 0.9% IV 1,000 ML 100 ML IV CONT ×2 (10:10→20:06)
[2021-06-18] MEDS: MELATONIN 3 MG TABLET PO (21:16)
[2021-06-19] VITALS (10 sets, daily range): BP systolic 138–163; BP diastolic 94–101; PULSE 74–99; RESP 14–18; TEMP 36.9–37.3; O2SAT 95–99
[2021-06-19] MEDS: LEVALBUTEROL NEB 1.25 MG/3 ML INHALATION ×2 (05:31→13:35)
[2021-06-19] MEDS: SODIUM CHLORIDE 0.9% IV 1,000 ML 100 ML IV CONT (06:39)
[2021-06-19] MEDS: POTASSIUM CHLORIDE 20 MEQ TABLET PO (08:15)
[2021-06-19 08:28] LABS: Hematocrit 31.3 % (40.0-54.0); Hemoglobin 10.1 g/dL (14.0-18.0); Mean Corpuscular HGB Conc 32.3 g/dL (32.0-36.0); Mean Corpuscular Hemoglobin 29.1 pg (27.0-31.0); Mean Corpuscular Volume 90.2 fL (78.0-102.0); Mean Platelet Volume 10.8 fl (8.7-11.0); Platelet Count Result 294 K/mm3 (150-420); Red Blood Count 3.47 M/mm3 (4.70-6.10); Red Cell Distribution Width 13.9 % (11.6-14.4); White Blood Count 7.6 K/mm3 (4.8-10.8)
[2021-06-19 08:43] LABS: Anion Gap 6 mmol/L (8-16); Blood Urea Nitrogen 12 mg/dL (7-18); Calcium 8.4 mg/dL (8.5-10.1); Carbon Dioxide 30 mmol/L (21-32); Chloride 96 mmol/L (98-108); Estimated CRCL calculation 52 ml/min; Estimated Glomerular Filt Rate > 60; Glucose 100 mg/dL (70-99); Osmolality Calculated 273 mOsm/kg (285-295); Sodium 132 mmol/L (136-145)
[2021-06-19 09:15] LABS: NT Pro B Type Natriuretic Pept 15314 pg/mL (0-125)
[2021-06-19] MEDS: FUROSEMIDE INJ 40 MG/4 ML VIAL IV PUSH (09:27)
[2021-06-19] MEDS: PANTOPRAZOLE SODIUM IV 40 MG VIAL IV PUSH (09:27)
[2021-06-19] MEDS: ENOXAPARIN 40 MG/0.4 ML SYRINGE SUB-Q (09:27)
[2021-06-19] MEDS: METOPROLOL SUCCINATE EXT REL 50 MG TABCR PO (09:28)
[2021-06-19] MEDS: ATORVASTATIN 40 MG TABLET PO (09:28)
[2021-06-19] MEDS: NIFEdipine 30 MG TAB.ER.24 PO (09:29)
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
--- NOTE | 2021-06-19 15:23 | PC.NURSE ---
Call placed to patient inez Juan [phone] to obtain update on estimated time of arrival for patient greens picker after being discharged. No answer, unable to leave voicemail as voicemail not set up.
--- NOTE | 2021-06-19 16:45 | PC.NURSE ---
Patient x-/caregiver called to say that she would be here in 30 min to nut picker patient. Informed of need for clothes, states will bring. Asked caregiver about patient transfer & transport, and states if staff could just help him into the vehicle, then the daughter who is a nurse can help get him up the steps into the house.
--- NOTE | 2021-06-19 17:45 | PC.NURSE ---
Caregiver, Avila (ex-) arrived. Pt finishing supper, full assist, ate 100%, drank all iced tea and all ensure. Pt incontinent of lg amount of urine, s/p lozano cath removal. Incontinent care provided. New incontinent brief applied. Pt assisted with dressing. Able to sit on side of bed with moderate assist. Moderate assist of 1 to stand with gait belt, pivot transfer to w/c. Reviewed discharge instructions, prescriptions, home health, and follow up appointments with caregiver, verbalized understanding. All belongings packed for patient and verified by caregiver. Pt transported via w/c to personal vehicle and moderate assist of 2 to transfer and position. Caregiver states that her daughter will be at the home to assist with getting patient into the house.
--- NOTE | 2021-06-21 13:13 | PC.NURSE ---
Son states his mother received and understood the discharge instructions. Son states patient seems to be doing a lot better now.
== END 2021-06-19 17:45 | disposition home health service (06) | DRG 193 ==
LOC: CHSED 21:04 → CHS2ND 21:16
PROVIDERS: Nurse Practitioner Family; Admitting Provider Emergency Medicine; Emergency Provider Emergency Medicine; PCP Internal Medicine; Visit Provider Emergency Medicine
DX: J18.9 Pneumonia, unspecified organism (principal); I50.23 Acute on chronic systolic (congestive) heart failure; E87.1 Hypo-osmolality and hyponatremia; I69.354 Hemiplegia and hemiparesis following cerebral infarction affecting left non-dominant side; Z20.822 Contact with and (suspected) exposure to COVID-19; T76.01XA Adult neglect or abandonment, suspected, initial encounter; I69.319 Unspecified symptoms and signs involving cognitive functions following cerebral infarction; I11.0 Hypertensive heart disease with heart failure; I25.10 Atherosclerotic heart disease of native coronary artery without angina pectoris; E87.6 Hypokalemia; E78.5 Hyperlipidemia, unspecified; K21.9 Gastro-esophageal reflux disease without esophagitis
CPT/HCPCS: 36415; 71045; 74177; 80048; 80053; 81001; 83605; 83735; 83880; 85025; 85027; 86140; 87040; 87502; 94640; 96361; 96365; 99285; A9270; C9113; C9803; J0456; J0696; J1650; J1940; J1956; J7030; J7120; Q9967; U0003; U0005

== ENCOUNTER 2021-07-17 14:01 | Observation (INO) | payer OTHER, SELFPAY ==
--- NOTE | ~2021-07-17 | CT_ITS ---
EXAMINATION: CT brain wo con DATE: 07/17/2021 15:02 INDICATION: Generalized weakness. TECHNIQUE: Computed tomography (CT) of the head was performed without intravenous contrast. The mA wa s adjusted according to patient size. Iterative reconstruction technique was employed. The dose-lengt h product was 605.33 mGy-cm. COMPARISON: Head CT 03/26/2021 FINDINGS: There are old infarcts in the cerebellum bilaterally. There is an old infarct in right temp oral occipital region. There is an old infarct in left occipital lobe. There are old infarcts in righ t frontal and parietal lobes. There are old infarcts in the bilateral basal ganglia, left frontal lob e hess radiata, and posterior limb right internal capsule. There is no intracranial hemorrhage, acu te infarction, or abnormal intracranial mass lesion. The ventricles are normal in size. There is muco angeilca thickening in the paranasal sinuses. The orbits are normal. The mastoid air cells are normal. IMPRESSION: 1. Old infarcts in the brain. Reviewed, dictated and finalized at location B.
--- NOTE | ~2021-07-17 | XR_ITS ---
EXAMINATION: XR chest 1V portable Exam Date/Time: 07/17/2021 14:40 CDT CLINICAL HISTORY: cough, lethargic, weakness Comparison: None available. RESULT: Lines, tubes, and devices: Loop recorder. Cardiac calcifications/stenting. Lungs and pleura: Clear. Cardiomediastinal silhouette: Stable cardiomediastinal silhouette. Other: No acute osseous or upper abdominal finding. IMPRESSION: No acute cardiopulmonary process Reviewed, dictated and finalized at location K.
[2021-07-17 14:05] VITALS: BP 173/90; PULSE 87; RESP 14; TEMP 36.4; O2SAT 97
--- NOTE | 2021-07-17 14:27 | ED.AMS ---
HPI - Altered Mental Status General Chief Complaint: Weakness Stated Complaint: AMB Time Seen by Provider: 07/17/21 14:27 Source: patient and EMS History of Present Illness HPI narrative: 60-year-old male ex-smoker with a history of hypertension, dyslipidemia, CAD/CHF, status post Aorto-iliac stent multiple bilateral strokes with aphasia / left hemiplegia /difficulty ambulating/incontinence with multiple admissions for altered mental status, pneumonia, CHF, electrolyte abnormalities. He presents from home. He is unable to voices complaints. His stated that he has -- altered mental status -- unable to stand -- urinary and fecal incontinence -- generalized weakness -- Peripheral cyanosis with mottled extremities complaint: altered mental status Onset (ago): day(s) Timing confirmed by: spouse Consistency of symptoms: waxing and waning Related Data Allergies Allergy/AdvReac Type Severity Reaction Status Date / Time No Known Allergies Allergy Verified 07/17/21 14:24 Review of Systems Review of Systems: the patient is unable to answer questions. He denies any complaints. Constitutional: Constitutional: Reports as per HPI and Reports no additional constitutional complaints [facility] Past Medical History Medical History CAD (coronary artery disease) CVA (cerebral vascular accident) Hypertension Social History Social History Smoking status: Former smoker Second hand tobacco smoke exposure: Yes Additional smoking assessment comments: unknown Alcohol intake: unknown Substance use: unknown Substance use type: unknown Gender identity (if verbalized by the patient): Male Spiritual care concerns: No Exam Const: General: no acute distress Limitations: altered mental status HENMT: Head: normal to inspection Ears: TM's normal bilaterally and EAC's normal Face and sinus: normal facial exam Mouth: Yes lip normal and Yes moist mucous membranes Eyes: Conjunctivae: conjunctivae normal Pupils: Equal, round and reactive pupils present EOM: EOMs intact bilaterally Neck: Neck: normal visual inspection and no lymphadenopathy Chest: Chest palpation & inspection: normal inspection of the chest Resp: Effort & Inspection: normal respiratory effort Auscultation: diminished lung sounds Cardio: Rate: regular rate Rhythm: regular rhythm GI: GI Palp: Yes Soft to palpation : General: Yes no CVA tenderness Testes: Testes normal Back/Spine/Pelvis: Back: no CVA tenderness Skin: Other: peripheral cyanosis. Mottled extremities Neuro: General: no meningeal signs Other: patient has expressive aphasia bilateral weakness of extremities with the left greater than the right Extrem: General: edema Other: severe sinuses of the toes with absent foot pulses Psych: Appearance: disheveled Other: patient is nonverbal. Course Vital Signs Vital signs: Vital Signs Temperature 36.4 C 07/17/21 14:05 Pulse Rate 87 07/17/21 14:05 Respiratory Rate 14 07/17/21 14:05 Blood Pressure 173/90 H 07/17/21 14:05 Pulse Oximetry 97 07/17/21 14:05 Temperature 36.3 C L 07/17/21 15:48 Pulse Rate 69 07/17/21 15:48 Respiratory Rate 14 07/17/21 15:48 Blood Pressure 151/70 H 07/17/21 15:48 Pulse Oximetry 97 07/17/21 15:48 MDM - Altered Mental Status MDM Narrative Medical decision making narrative: altered mental status electrolyte imbalance peripheral vascular disease Differential Diagnosis Differential diagnosis: Likely altered mental status, dementia and sepsis Medical Records Attestation: I reviewed the patient's medical records. Lab Data Attestation: I reviewed the patient's lab results. Result diagrams: 07/17/21 15:19 07/17/21 15:19 Labs: Lab Results 07/17/21 07/17/21 07/17/21 Range/Units 15:01 15:01 15:05 WBC (
--- NOTE | 2021-07-17 14:34 | ECG_ITS ---
Measurements Intervals [place] Rate: 60 P: 47 [place]: 189 QRS: -53 QRSD: 97 T: 148 QT: 514 QTc: 514 Interpretive Statements SINUS RHYTHM BASELINE ARTIFACT LEFT ATRIAL ENLARGEMENT [-0.15mV P-WAVE IN V1/V2] LEFT ANTERIOR FASCICULAR BLOCK [QRS AXIS <= -45, QR IN I, RS IN II] LEFT VENTRICULAR HYPERTROPHY AND ST-T CHANGE INFERIOR ST ELEVATIONS WITH INFERIOR INFARCTION, PROBABLY OLD ABNORMAL ECG COMPARED TO ECG 04/12/2021 12:53:16 NO SIGNIFICANT CHANGE OTHER THAN CRITERIA FOR LEFT ANTERIOR FASCICULAR BLOCK NOW SEEN Electronically Signed On 07-17-2021 15:59:16 CDT by Rob Nugent M.D.
[2021-07-17 15:04] LABS: Base Excess ABG 5.8 mmol/L (0-2); HCO3 ABG 30.8 mmol/L (23-29); Oxygen Content ABG 20.1 %vol (16.0-22.0); Oxygen Saturation ABG 95.5 % (95-97); Oxyhemoglobin 94.7 % (94-100); PCO2 ABG 45.9 mmHg (35-45); PO2 ABG 81.7 mmHg (80-90); Total Hemoglobin 15.1 g/dL (12.0-18.0); pH ABG 7.45 (7.35-7.45)
[2021-07-17 15:07] LABS: Device ROOM AIR; Modified Allen's Test Pass; Site Drawn RIGHT RADIAL
[2021-07-17 15:27] LABS: Basophils Absolute Auto 0.08 K/mm3 (0.00-0.10); Eosinophils Absolute Auto 0.14 K/mm3 (0.02-0.50); Eosinophils Percent Auto 1.7 % (1.0-6.0); Hematocrit 42.5 % (40.0-54.0); Immature Granulocyte Absolute 0.03 K/mm3 (0.00-0.00); Immature Granulocyte Percent A 0.4 % (0.0-0.0); Lymphocytes Absolute Auto 2.58 K/mm3 (1.10-4.50); Mean Corpuscular HGB Conc 32.9 g/dL (32.0-36.0); Mean Corpuscular Hemoglobin 28.6 pg (27.0-31.0); Mean Corpuscular Volume 86.9 fL (78.0-102.0); Mean Platelet Volume 10.6 fl (8.7-11.0); Monocytes Absolute Auto 0.57 K/mm3 (0.10-0.90); Monocytes Percent Auto 6.8 % (2.0-11.0); Neutrophils Absolute Auto 4.9 K/mm3 (1.7-7.2); Neutrophils Percent Auto 59.1 % (50.0-70.0); Platelet Count Result 318 K/mm3 (150-420); Red Blood Count 4.89 M/mm3 (4.70-6.10); Red Cell Distribution Width 14.2 % (11.6-14.4); White Blood Count 8.3 K/mm3 (4.8-10.8)
[2021-07-17 15:39] LABS: Prothrombin Time 10.8 Seconds (9.50-12.10)
[2021-07-17 15:47] LABS: Lactic Acid Reflex 1.8 mmol/L (0.4-2.0)
[2021-07-17 15:47] LABS: Influenza A QL RT-PCR Negative (Negative); Influenza B QL RT-PCR Negative (Negative); SARS-CoV-2 RNA PCR Negative (Negative)
[2021-07-17 15:48] VITALS: BP 151/70; PULSE 69; RESP 14; TEMP 36.3; O2SAT 97
[2021-07-17 15:53] LABS: Alanine Aminotransferase 9 U/L (16-63); Albumin Level 3.8 g/dL (3.4-5.0); Alkaline Phosphatase 101 U/L (46-116); Anion Gap 8 mmol/L (8-16); Aspartate Amino Transferase 11 U/L (15-37); Bilirubin,Total 0.5 mg/dL (0.00-1.00); Blood Urea Nitrogen 19 mg/dL (7-18); Calcium 9.9 mg/dL (8.5-10.1); Carbon Dioxide 33 mmol/L (21-32); Chloride 93 mmol/L (98-108); Estimated CRCL calculation 60 ml/min; Estimated Glomerular Filt Rate > 60; Glucose 168 mg/dL (70-99); Lipase 178 U/L (73-393); Magnesium 2.1 mg/dL (1.8-2.4); NT Pro B Type Natriuretic Pept 6460 pg/mL (0-125); Osmolality Calculated 284 mOsm/kg (285-295); Potassium 2.8 mmol/L (3.5-5.1); Sodium 134 mmol/L (136-145); Thyroid Stimulating Hormone 2.65 uIU/mL (0.36-3.74); Troponin I 76.3 ng/L (0.00-60.4)
--- NOTE | 2021-07-17 15:53 | PC.NURSE ---
discussed pt care with SCOTT inez mcconnelln. jon states they have been trying to get this pt admitted into [facility] for the past few days. states [facility] does not have a male bed in [place]. jon confirmed pt could go to another facility if a bed is found. jon also confirmed DNR status and states he will bring signed form in to this hospital tomorrow if pt is admitted. pt sleeping soundly. awakens easily. pt informed that erp will be in to speak with him soon
[2021-07-17] MEDS: KCL 20 MEQ/SW 100 ML 100 ML 50 MEQ IVPB (17:01)
[2021-07-17] MEDS: SODIUM CHLORIDE 0.9% IV 250 ML 100 ML (17:02)
[2021-07-17 17:43] VITALS: BP 149/80; PULSE 89; RESP 16; TEMP 36.8; O2SAT 96
--- NOTE | 2021-07-17 18:10 | ADMGEN ---
This patient, Jatin Crockett, was admitted to 2nd Floor Room 208-2. Patient/family oriented to hospital policies and general routines including ID bracelet, bed and alarms, visiting hours, pain management, procedures, bathroom and other care routines, personal items, smoking policy, room service/diet, and visiting hours. Information on how to activate the Rapid Response Team has been discussed. Patient/Family are encouraged to report perceived risks to care and to ask questions if they do not understand what they are told or what they should do.
[2021-07-17 20:05] VITALS: BMI 16.9
[2021-07-17 20:06] VITALS: PULSE 64
[2021-07-17 20:12] VITALS: BP 163/92; PULSE 64; RESP 18; TEMP 36.6; O2SAT 100
[2021-07-17 22:04] LABS: Troponin I 75.3 ng/L (0.00-60.4)
[2021-07-18] VITALS (9 sets, daily range): BP systolic 138–180; BP diastolic 80–95; PULSE 58–72; RESP 16–18; TEMP 36.6–37.1; O2SAT 96–100
[2021-07-18 05:08] LABS: Basophils Absolute Auto 0.05 K/mm3 (0.00-0.10); Basophils Percent Auto 0.5 % (0.0-1.0); Eosinophils Absolute Auto 0.17 K/mm3 (0.02-0.50); Eosinophils Percent Auto 1.8 % (1.0-6.0); Hematocrit 37.7 % (40.0-54.0); Hemoglobin 12.2 g/dL (14.0-18.0); Immature Granulocyte Absolute 0.04 K/mm3 (0.00-0.00); Immature Granulocyte Percent A 0.4 % (0.0-0.0); Lymphocytes Absolute Auto 2.74 K/mm3 (1.10-4.50); Mean Corpuscular HGB Conc 32.4 g/dL (32.0-36.0); Mean Corpuscular Hemoglobin 28.1 pg (27.0-31.0); Mean Corpuscular Volume 86.9 fL (78.0-102.0); Mean Platelet Volume 10.4 fl (8.7-11.0); Monocytes Absolute Auto 0.67 K/mm3 (0.10-0.90); Monocytes Percent Auto 7.1 % (2.0-11.0); Neutrophils Absolute Auto 5.8 K/mm3 (1.7-7.2); Neutrophils Percent Auto 61.2 % (50.0-70.0); Platelet Count Result 261 K/mm3 (150-420); Red Blood Count 4.34 M/mm3 (4.70-6.10); White Blood Count 9.4 K/mm3 (4.8-10.8)
[2021-07-18 05:18] LABS: Anion Gap 8 mmol/L (8-16); Blood Urea Nitrogen 28 mg/dL (7-18); Calcium 8.8 mg/dL (8.5-10.1); Carbon Dioxide 30 mmol/L (21-32); Chloride 94 mmol/L (98-108); Estimated CRCL calculation 38 ml/min; Estimated Glomerular Filt Rate 58; Glucose 110 mg/dL (70-99); Osmolality Calculated 280 mOsm/kg (285-295); Sodium 132 mmol/L (136-145)
--- NOTE | 2021-07-18 09:14 | PM.IMHP ---
H&P: HPI History of Present Illness Date/Time: 07/18/21 09:14 This is a 60 YO male that presented to our Ed with complains of increased weakness.He has a hx of CAD, CVA with left side residual , congestive heart failure and cognitive impairment. Patient is well know to our establishment patient is a poor historian and believed he is here because he had a stroke. All information obtained from medical records. Apparently patient's family members can no longer take care of him at home and is seeking placement. Vital signs 98, 68, 16, 100% room air, 153/91,, WBCs 9.4, hemoglobin 12.2, hematocrit 37.7, sodium 132, potassium 3.0, BUN 28, creatinine 1.26, glucose 110, [id number], CT of the head and chest no new findings. The patient denies SOB, CP, palpitation, extremity numbness, lightheadedness, dizziness, constipation, diarrhea, chills, or fever. Patient does not appear to be in any distress he is currently at baseline awaiting placement Chief Complaint: AMS, weakness Review of Systems Review of Systems: A 14 organ system Review of Systems was performed and pertinent positives included in the HPI, otherwise remaining ROS is negative. [facility] Past Medical History Medical History CAD (coronary artery disease) CVA (cerebral vascular accident) Hypertension Social History Social History Smoking status: Former smoker Second hand tobacco smoke exposure: Yes Additional smoking assessment comments: unknown Alcohol intake: unknown Substance use: unknown Substance use type: unknown Gender identity (if verbalized by the patient): Male Spiritual care concerns: No Meds Home Medications and Allergies Home Medications Medication Instructions Recorded Confirmed Type albuterol sulfate 1 inh INHALATION QID PRN #8.5 g 06/19/21 07/17/21 Rx atorvastatin 40 mg PO DAILY #30 tablet 06/19/21 07/17/21 Rx furosemide 20 mg PO DAILY #30 tablet 06/19/21 07/17/21 Rx metoprolol succinate 50 mg PO QAM #30 tablet 06/19/21 07/17/21 Rx nifedipine [Procardia XL] 30 mg PO QAM #30 tablet 06/19/21 07/17/21 Rx potassium chloride [K-Tab] 20 meq PO BIDWM #6 tablet 06/19/21 07/17/21 Rx Allergies Allergy/AdvReac Type Severity Reaction Status Date / Time No Known Allergies Allergy Verified 07/17/21 14:24 Vital Signs Vital Signs - 24 hr 07/17/21 14:05 07/17/21 15:48 07/17/21 17:43 Temperature 97.6 F 97.3 F L 98.2 F Pulse Rate 87 69 89 Respiratory Rate 14 14 16 Blood Pressure 173/90 H 151/70 H 149/80 H Pulse Oximetry 97 97 96 07/17/21 20:06 07/17/21 20:12 07/18/21 00:00 Temperature 97.9 F 97.9 F Pulse Rate 64 64 72 Respiratory Rate 18 18 Blood Pressure 163/92 H 180/90 H Pulse Oximetry 100 97 07/18/21 03:45 07/18/21 08:00 Temperature 98.7 F 98 F Pulse Rate 70 65 Respiratory Rate 16 16 Blood Pressure 169/88 H 153/91 H Pulse Oximetry 96 100 Exam Narrative: GENERAL: This is a well-nourished, well-developed patient, flat affect, in no apparent distress. HEAD: normocephalic, atraumatic. EYES: PERRL. Sclera clear/white. Vision is grossly intact. EARS: External ears normal, auditory canals clear and without drainage, TMs normal without perforation. Hearing grossly intact. NOSE: External nose normal with no obvious nasal discharge, nares without redness, no rhinorrhea. THROAT: Mucous membranes moist, posterior pharynx clear. NECK: Neck supple, non-tender without lymphadenopathy, masses or thyromegaly. CARDIOVASCULAR: Regular rate and rhythm without murmurs, gallops, or rubs. RESPIRATORY: Clear to auscultation. Breath sounds equal bilaterally. No wheezes, rales, or rhonchi. GASTROINTESTINAL: Abdomen soft, non-tender, nondistended. Bowel sounds are active. No hepato-splenomegaly, or palpable masses. No guarding. SKIN: warm, intact with no suspicious lesions or rash, good texture and turgor. NEURO: awake, alert, and oriented to pe
[2021-07-18] MEDS: NIFEdipine 30 MG TAB.ER.24 PO (09:22)
[2021-07-18] MEDS: POTASSIUM CHLORIDE 20 MEQ TABLET PO ×2 (09:22→17:17)
[2021-07-18] MEDS: METOPROLOL SUCCINATE EXT REL 50 MG TABCR PO (09:22)
[2021-07-18] MEDS: FUROSEMIDE INJ 20 MG/2 ML VIAL IV PUSH (09:22)
[2021-07-18] MEDS: ATORVASTATIN 40 MG TABLET PO (09:22)
[2021-07-18] MEDS: ENOXAPARIN 40 MG/0.4 ML SYRINGE SUB-Q (09:23)
[2021-07-18 09:45] LABS: Troponin I 72.4 ng/L (0.00-60.4)
[2021-07-19 03:57] VITALS: BP 167/89; PULSE 64; RESP 16; TEMP 36.8; O2SAT 99
[2021-07-19 05:09] LABS: Hematocrit 38.8 % (40.0-54.0); Hemoglobin 12.8 g/dL (14.0-18.0); Mean Corpuscular Hemoglobin 28.8 pg (27.0-31.0); Mean Corpuscular Volume 87.2 fL (78.0-102.0); Mean Platelet Volume 10.4 fl (8.7-11.0); Platelet Count Result 239 K/mm3 (150-420); Red Blood Count 4.45 M/mm3 (4.70-6.10); White Blood Count 6.8 K/mm3 (4.8-10.8)
[2021-07-19 05:24] LABS: Albumin Level 3.5 g/dL (3.4-5.0); Alkaline Phosphatase 88 U/L (46-116); Anion Gap 7 mmol/L (8-16); Aspartate Amino Transferase < 10 U/L (15-37); Bilirubin,Total 0.4 mg/dL (0.00-1.00); Blood Urea Nitrogen 21 mg/dL (7-18); Calcium 9.2 mg/dL (8.5-10.1); Carbon Dioxide 32 mmol/L (21-32); Chloride 94 mmol/L (98-108); Estimated CRCL calculation 41 ml/min; Estimated Glomerular Filt Rate > 60; Glucose 98 mg/dL (70-99); Magnesium 1.9 mg/dL (1.8-2.4); Osmolality Calculated 279 mOsm/kg (285-295); Potassium 3.1 mmol/L (3.5-5.1); Sodium 133 mmol/L (136-145); Total Protein 7.3 g/dL (6.4-8.2)
[2021-07-19 05:34] LABS: Alanine Aminotransferase < 6 U/L (16-63)
[2021-07-19 07:57] VITALS: PULSE 69
[2021-07-19 08:00] VITALS: BP 146/101; PULSE 69; RESP 16; TEMP 36.4; O2SAT 98
[2021-07-19] MEDS: ATORVASTATIN 40 MG TABLET PO (08:31)
[2021-07-19] MEDS: ENOXAPARIN 40 MG/0.4 ML SYRINGE SUB-Q (08:31)
[2021-07-19] MEDS: FUROSEMIDE INJ 20 MG/2 ML VIAL IV PUSH (08:31)
[2021-07-19 08:32] VITALS: PULSE 73
[2021-07-19] MEDS: POTASSIUM CHLORIDE 20 MEQ TABLET PO (08:32)
[2021-07-19] MEDS: NIFEdipine 30 MG TAB.ER.24 PO (08:32)
[2021-07-19] MEDS: METOPROLOL SUCCINATE EXT REL 50 MG TABCR PO (08:32)
--- NOTE | 2021-07-19 08:58 | P.DS_ITS ---
DS: Admitting Diagnosis Discharge Date 07/19/2021 Admitting Diagnosis weakness, placement DS: Discharge Diagnosis Discharge Diagnosis (1) Elevated troponin: Code(s): R77.8 - Other specified abnormalities of plasma proteins Status: Acute Assessment and Plan: * Chronic * Possibly secondary to CHF * Sinus rhythm with a heart rate of 90 * Continue telemetry * trop 46.3>45.3>72.4 trending down * Denies any chest pain, no radicular component (2) Electrolyte imbalance: Code(s): E87.8 - Other disorders of electrolyte and fluid balance, not elsewhere classified Status: Acute Assessment and Plan: Potassium (3) Altered mental status: Qualifiers: Altered mental status type: unspecified Qualified Code(s): R41.82 - Altered mental status, unspecified Code(s): R41.82 - Altered mental status, unspecified Status: Acute Assessment and Plan: * Patient is at baseline * Secondary to history of CVA and possibly undiagnosed dementia (4) Peripheral vascular disease: Code(s): I73.9 - Peripheral vascular disease, unspecified Status: Acute (5) Congestive heart failure: Qualifiers: Heart failure chronicity: acute on chronic Heart failure type: systolic Qualified Code(s): I50.23 - Acute on chronic systolic (congestive) heart failure Code(s): I50.9 - Heart failure, unspecified Status: Acute Assessment and Plan: * Patient ordered a outpatient echo his last hospitalization on 04/14/2021 * Echo not completed * Continue Lasix 20 mg daily * BNP in the 6000 * Chest x-ray does not indicate pulmonary edema (6) Hypertension: Code(s): I10 - Essential (primary) hypertension Status: Acute Assessment and Plan: * Blood pressure slightly elevated * Continue home meds * As ordered * Will adjust medication as needed (7) CVA (cerebral vascular accident): Qualifiers: Laterality of affected vessel: right Code(s): I63.9 - Cerebral infarction, unspecified Status: Acute Assessment and Plan: * Patient with left-sided residual * No new infarct indicated on CT of the head (8) CAD (coronary artery disease): Code(s): I25.10 - Atherosclerotic heart disease of [place] coronary artery without angina pectoris Status: Acute Assessment and Plan: * Continue atorvastatin (9) Weakness: Code(s): R53.1 - Weakness Status: Acute Assessment and Plan: * Possibly secondary to history of CVA and worsening undiagnosed dementia * Patient does have a history of cognitive impairment * Patient will be placed DS: Summary Hospital Course Hospital Course: This is a 60 YO male that presented to our Ed with complains of increased weakness.He has a hx of CAD, CVA with left side residual , congestive heart failure and cognitive impairment. Patient is well know to our establishment patient is a poor historian and believed he is here because he had a stroke. All information obtained from medical records. Apparently patient's family members can no longer take care of him at home and is seeking placement. Time Spent with Patient Time attestation: Total time spent providing and/or coordinating discharge services: Exam Narrative: GENERAL: This is a well-nourished, well-developed patient, flat affect, in no apparent distress. HEAD: normocephalic, atraumatic. EYES: PERRL. Sclera clear/white. Vision is grossly intact. EARS: External ears normal, auditory canals clear and without
--- NOTE | 2021-07-19 08:58 | PM.DS ---
DS: Admitting Diagnosis Discharge Date 07/19/2021 Admitting Diagnosis weakness, placement DS: Discharge Diagnosis Discharge Diagnosis (1) Elevated troponin: Code(s): R77.8 - Other specified abnormalities of plasma proteins Status: Acute Assessment and Plan: Chronic Possibly secondary to CHF Sinus rhythm with a heart rate of 90 Continue telemetry trop 46.3>45.3>72.4 trending down Denies any chest pain, no radicular component (2) Electrolyte imbalance: Code(s): E87.8 - Other disorders of electrolyte and fluid balance, not elsewhere classified Status: Acute Assessment and Plan: Potassium (3) Altered mental status: Qualifiers: Altered mental status type: unspecified Qualified Code(s): R41.82 - Altered mental status, unspecified Code(s): R41.82 - Altered mental status, unspecified Status: Acute Assessment and Plan: Patient is at baseline Secondary to history of CVA and possibly undiagnosed dementia (4) Peripheral vascular disease: Code(s): I73.9 - Peripheral vascular disease, unspecified Status: Acute (5) Congestive heart failure: Qualifiers: Heart failure chronicity: acute on chronic Heart failure type: systolic Qualified Code(s): I50.23 - Acute on chronic systolic (congestive) heart failure Code(s): I50.9 - Heart failure, unspecified Status: Acute Assessment and Plan: Patient ordered a outpatient echo his last hospitalization on 04/14/2021 Echo not completed Continue Lasix 20 mg daily BNP in the 6000 Chest x-ray does not indicate pulmonary edema (6) Hypertension: Code(s): I10 - Essential (primary) hypertension Status: Acute Assessment and Plan: Blood pressure slightly elevated Continue home meds As ordered Will adjust medication as needed (7) CVA (cerebral vascular accident): Qualifiers: Laterality of affected vessel: right Code(s): I63.9 - Cerebral infarction, unspecified Status: Acute Assessment and Plan: Patient with left-sided residual No new infarct indicated on CT of the head (8) CAD (coronary artery disease): Code(s): I25.10 - Atherosclerotic heart disease of [place] coronary artery without angina pectoris Status: Acute Assessment and Plan: Continue atorvastatin (9) Weakness: Code(s): R53.1 - Weakness Status: Acute Assessment and Plan: Possibly secondary to history of CVA and worsening undiagnosed dementia Patient does have a history of cognitive impairment Patient will be placed DS: Summary Hospital Course Hospital Course: This is a 60 YO male that presented to our Ed with complains of increased weakness.He has a hx of CAD, CVA with left side residual , congestive heart failure and cognitive impairment. Patient is well know to our establishment patient is a poor historian and believed he is here because he had a stroke. All information obtained from medical records. Apparently patient's family members can no longer take care of him at home and is seeking placement. Time Spent with Patient Time attestation: Total time spent providing and/or coordinating discharge services: Exam Narrative: GENERAL: This is a well-nourished, well-developed patient, flat affect, in no apparent distress. HEAD: normocephalic, atraumatic. EYES: PERRL. Sclera clear/white. Vision is grossly intact. EARS: External ears normal, auditory canals clear and without drainage, TMs normal without perforation. Hearing grossly intact. NOSE: External nose normal with no obvious nasal discharge, nares without redness, no rhinorrhea. THROAT: Mucous membranes moist, posterior pharynx clear. NECK: Neck supple, non-tender without lymphadenopathy, masses or thyromegaly. CARDIOVASCULAR: Regular rate and rhythm without murmurs, gallops, or rubs. RESPIRATORY: Clear to auscultation. Breath sounds equal bilaterally. No wheezes,
[2021-07-19] MEDS: POTASSIUM CHLORIDE 20 MEQ TABLET 40 MEQ PO (09:18)
[2021-07-19 10:35] LABS: SARS-CoV-2 Ag Negative (Negative)
[2021-07-19 12:00] VITALS: BP 180/118; PULSE 60; PULSE 66; RESP 16; TEMP 36.8; O2SAT 98
[2021-07-19] MEDS: hydrALAZINE HCL 20 MG/ML VIAL 5 MG IV PUSH (12:30)
--- NOTE | 2021-07-19 12:42 | PC.NURSE ---
PRN hydralazine administered at 1230 for BP 180/118.
--- NOTE | 2021-07-19 13:20 | PC.NURSE ---
support services coordinator advised commercial lines underwriter that he will be discharging very soon. Event Specialist removed lozano catheter and IV in preparation for discharge.
--- NOTE | 2021-07-19 13:25 | PC.NURSE ---
Patient discharged to [facility] in [place]. Alen from [facility] picked up patient in w/c via facility van. Patient is A/O to self and place and was in agreement with [facility] placement. Hooker catheter and IV discontinued prior to discharge. Discharge instructions and printed prescriptions sent with Alen, as well as personal belongings. Discharge instructions faxed to facility and report called to Emani in nursing. Senior Mechanical Design Engineer's number was given to Emani for any future questions.
--- NOTE | 2021-07-23 11:22 | PC.NURSE ---
NH nurse states they received and understood the discharge instructions.
== END 2021-07-19 13:25 ==
LOC: CHSED 16:43 → CHS2ND 17:08
PROVIDERS: Nurse Practitioner; Nurse Practitioner Family; Admitting Provider Internal Medicine; Emergency Provider Internal Medicine Critical Care Medicine; PCP Internal Medicine; Visit Provider Internal Medicine
DX: R53.1 Weakness (principal); I11.0 Hypertensive heart disease with heart failure; I50.23 Acute on chronic systolic (congestive) heart failure; I25.10 Atherosclerotic heart disease of native coronary artery without angina pectoris; I69.354 Hemiplegia and hemiparesis following cerebral infarction affecting left non-dominant side; I69.320 Aphasia following cerebral infarction; I69.398 Other sequelae of cerebral infarction; I69.319 Unspecified symptoms and signs involving cognitive functions following cerebral infarction; R26.89 Other abnormalities of gait and mobility; I73.9 Peripheral vascular disease, unspecified; E78.5 Hyperlipidemia, unspecified; E87.8 Other disorders of electrolyte and fluid balance, not elsewhere classified; R77.8 Other specified abnormalities of plasma proteins; Z87.891 Personal history of nicotine dependence; Z20.822 Contact with and (suspected) exposure to COVID-19
CPT/HCPCS: 36415; 36600; 70450; 71045; 80048; 80053; 82805; 83605; 83690; 83735; 83880; 84443; 84484; 85025; 85027; 85610; 87426; 87502; 93005; 96365; 96366; 96372; 96374; 96375; 96376; 97110; 97162; 97165; 97530; 97535; 99285; A9270; C9803; G0378; J0360; J1650; J1940; J3480; J7050; U0003; U0005